=== PATIENT | male | born 1950 | race Caucasian/White ===

== ENCOUNTER 2024-12-09 07:52 | Outpatient (CLI) | payer MEDICARE, SELFPAY ==
[2024-12-09 08:00] LABS: Hematocrit 34.7 % (42.0-52.0); Hemoglobin 10.9 g/dL (14.1-18.0); Immature Granulocytes % 0.6 %; Mean Corpuscular HGB Conc 31.4 g/dL (31.8-35.4); Mean Corpuscular Hemoglobin 29.1 pg (27.0-31.2); Mean Corpuscular Volume 92.8 fl (80-94); Nucleated Red Blood Cells % 0 %; Platelet Count 235 K/mm3 (142-424); Red Blood Count 3.74 M/mm3 (4.60-6.20); Red Cell Distribution Width-SD 48.8 fL; White Blood Count 7.9 K/mm3 (4.8-10.8)
[2024-12-09 08:27] LABS: Alanine Aminotransferase 18 U/L (12-78); Albumin Level 3.4 g/dl (3.5-5.0); Albumin/Globulin Ratio 1.3 (1.1-1.8); Alkaline Phosphatase 93 U/L (38-126); Anion Gap 15.2 mEq/L (5-15); Aspartate Amino Transferase 25 U/L (17-59); Bilirubin,Total 0.6 mg/dl (0.2-1.3); Blood Urea Nitrogen 36 mg/dl (9-20); Calcium 9.6 mg/dl (8.4-10.2); Carbon Dioxide 26 mmol/L (22.0-30.0); Chloride 102 mmol/L (98-107); Cholesterol 182 mg/dl (140-200); Creatinine,Serum 1.90 mg/dl (0.66-1.25); Estimated Glomerular Filt Rate 35 ml/min (>60); GFR (African American) 42 ML/MIN (>60); Globulin 2.7 g/dL (1.3-3.2); Glucose 88 mg/dl (74-100); HDL Cholesterol 48 mg/dl (40-60); Potassium 4.2 mmoL/L (3.5-5.1); Sodium 139 mmol/L (136-145); Total Protein,Serum 6.1 g/dl (6.3-8.2); Triglycerides 130 mg/dl (30-150)
[2024-12-09 08:58] LABS: Thyroid Stimulating Hormone 2.42 uIU/mL (0.465-4.68)
== END 2024-12-09 23:59 | disposition home or self-care (01) ==
PROVIDERS: PCP Nurse Practitioner Family; Visit Provider Nurse Practitioner Family
DX: E78.5 Hyperlipidemia, unspecified (principal); E03.9 Hypothyroidism, unspecified; N18.9 Chronic kidney disease, unspecified
CPT/HCPCS: 36415; 80053; 80061; 84443; 85025

== ENCOUNTER 2025-01-06 17:31 | Inpatient (IN) | payer MEDICARE, SELFPAY ==
[2025-01-06] VITALS (19 sets, daily range): BP systolic 79–119; BP diastolic 40–91; PULSE 64–132; RESP 17–49; TEMP 37.6–38.7; O2SAT 91–100; BMI 22.8; BMI 28.3
--- NOTE | 2025-01-06 17:24 | ECG_ITS ---
APPROVED REPORT Exam: Resting ECG HR:132 bpm ECG Measurements Heart Rate 132 AXES [place] 149 P 55 QRSd 77 QRS 3 QT 285 T 61 QTc 363 Conclusion SINUS TACHYCARDIA MODERATE ST DEPRESSION [0.05+ mV ST DEPRESSION] ABNORMAL ECG UNCONFIRMED REPORT Electronically signed by : William Benton, 01/06/2025 22:37:51
[2025-01-06 17:42] LABS: Coronavirus 19, PCR Not Detected (NotDetected); Influenza A, PCR Not Detected (NotDetected); Influenza B, PCR Not Detected (NotDetected)
--- NOTE | 2025-01-06 17:44 | CT_ITS ---
PROCEDURE INFORMATION: Exam: CT Abdomen And Pelvis With Contrast Exam date and time: 01/06/2025 7:49 PM Age: 74 years old Clinical indication: Abdominal pain; Additional info: Abd pain TECHNIQUE: Imaging protocol: Computed tomography of the abdomen and pelvis with contrast. Radiation optimization: All CT scans at this facility use at least one of these dose optimization techniques: automated exposure control; mA and/or kV adjustment per patient size (includes targeted exams where dose is matched to clinical indication); or iterative reconstruction. Contrast material: ISOVUE; Contrast volume: 75 ml; Contrast route: IV; COMPARISON: CR (CHEST, CXR AP LANDSCAPE) 01/06/2025 6:16 PM FINDINGS: Tubes, catheters and devices: Manning catheter present with the balloon insufflated. The balloon and catheter tip are within the membranous urethra below the level of the prostate. There is a mild increase in attenuation surrounding the tip of the catheter which may be enhancement or represent a small amount of urethral hemorrhage. Lungs: Bandlike atelectasis and mild infiltrative changes within the lung bases. No focal consolidation or pleural effusion appreciated. Coronary arteries: There is at least moderate atherosclerotic plaquing involving the proximal LAD and 1st diagonal branch. Calcification proximal circumflex artery and also probably at the origin of the right coronary artery. Liver: Normal. No mass. Gallbladder and biliary ducts: Normal. No calcified stones. No ductal dilation. Pancreas: Normal. No ductal dilation. Spleen: Normal. No splenomegaly. Adrenal glands: 2.3 x 2.1 cm right adrenal mass with a 1.6 cm area of decreased attenuation centrally. The peripheral Hounsfield unit measurement is approximately 70 with the central area in the 25 range. There are 2 coarse calcifications present. The left adrenal gland appears normal. Kidneys and ureters: Normal-sized kidneys which show slightly inhomogeneous enhancement. There are small peripheral low-attenuation renal masses that likely represent cysts and do not require follow-up. There is mild dilatation of the renal pelvis and ureters bilaterally. There is mild increased attenuation in the peripelvic fat of the left kidney. No ureteral stone is identified. Stomach and bowel: The stomach is partially gas and fluid filled. There is no small bowel dilatation. The cecum is mobile and directed anteromedially. The colon is gas and stool-filled and does not appear significantly distended. A small mesenteric lipoma seen adjacent to the sigmoid colon in the right lower abdomen. Appendix: No evidence of appendicitis. The appendix is not visualized with certainty. Intraperitoneal space: See Stomach and bowel finding. Vasculature: Moderate atherosclerotic plaquing abdominal aorta with no aneurysm. Lymph nodes: Unremarkable. No enlarged lymph nodes. Urinary bladder: There is moderate bladder distension with mild wall thickening. No inflammation is seen surrounding the bladder. Reproductive: Prostate enlargement measuring in the 5 cm range. Bones/joints: Multilevel degenerative disc disease lumbar spine with a mild degenerative anterolisthesis of L4 with respect to L3 and L5. Facet joint arthritis lower lumbar spine. Soft tissues: Tiny fat containing umbilical hernia and small fat containing inguinal hernias. No obstructive hernia. IMPRESSION: 1. Moderate urinary retention with prostate enlargement. Mild bladder wall thickening and mild dilatation of the renal pelvis and ureters and slight inhomogeneous of the kidneys. A urinary tract infection is suspected which may be ascending and involve the kidneys. 2. The tip of the Manning catheter is within the membranous urethra where there may be a small amount of surrounding hemorrhage. 3. 2.3 x 2.1 cm right adrenal mass which is described above. A follow-up MRI of the abdomen with and without intravenous contrast on a nonemergent basis is recommended. 4. Coronary artery disease which is discussed above. COMMENTS: Consistent with the [employer]'s Incidental Findings Committee white paper (J Am Megha Radiol 2018): Any incidental renal lesion less than 1 cm or classified as too small to characterize, or any incidental cystic renal lesion characterized as simple-appearing, is likely benign. No follow-up imaging is recommended for these lesions per consensus recommendations based on imaging criteria. COMMENT: THIS REPORT CONTAINS FINDINGS THAT MAY BE CRITICAL TO PATIENT CARE. The exam findings were verbally communicated by me to KRITSA Holland via telephone conference at 8:48 PM EDT on 01/06/2025. The findings were acknowledged and understood.
--- NOTE | 2025-01-06 17:44 | XR_ITS ---
PROCEDURE INFORMATION: Exam: XR Chest Exam date and time: 01/06/2025 6:16 PM Age: 74 years old Clinical indication: Shortness of breath; Additional info: SOA TECHNIQUE: Imaging protocol: Radiologic exam of the chest. Views: 1 view. COMPARISON: No relevant prior studies available. FINDINGS: Lungs: Suboptimal inspiratory effort with mild elevation of the hemidiaphragms. Mild left perihilar and right infrahilar atelectatic changes with possibly minimal infiltration. No focal consolidation identified. Pleural spaces: Unremarkable. No pleural effusion. No pneumothorax. Heart/Mediastinum: Unremarkable. No cardiomegaly. Bones/joints: Unremarkable. IMPRESSION: Suboptimal inspiratory effort with mild left perihilar and right infrahilar atelectasis or minimal infiltration. No focal consolidation, vascular congestion or pleural fluid appreciated.
--- NOTE | 2025-01-06 17:48 | PC.NURSE ---
I notified Jossie in resp that a green top was sent for a VBG
[2025-01-06] MEDS: 0.9 % SODIUM CHLORIDE 1000ML 1,000 ML 999 ML IV ×2 (17:53→19:16)
[2025-01-06] MEDS: ACETAMINOPHEN 1,000MG/100ML VIAL 1000 MG IV (17:53)
[2025-01-06 17:55] LABS: VBG HCO3 23.9 mmol/L (23-30); VBG PCO2 46.2 mmol/L (35-51); VBG PH 7.33 mmol/L (7.31-7.41); VBG PO2 29.7 mmol/L (28-40)
[2025-01-06 17:56] LABS: Lactate Venous 4.3 mmol/L (0.4-2.0)
[2025-01-06 17:58] LABS: Alanine Aminotransferase 31 U/L (12-78); Albumin Level 3.8 g/dl (3.5-5.0); Albumin/Globulin Ratio 1.2 (1.1-1.8); Alkaline Phosphatase 120 U/L (38-126); Anion Gap 13.4 mEq/L (5-15); Aspartate Amino Transferase 31 U/L (17-59); Bilirubin,Total 0.4 mg/dl (0.2-1.3); Blood Urea Nitrogen 28 mg/dl (9-20); Calcium 8.9 mg/dl (8.4-10.2); Carbon Dioxide 24 mmol/L (22.0-30.0); Chloride 105 mmol/L (98-107); Creatinine Clearance Estimated 31 mL/min (50-200); Creatinine,Serum 2.00 mg/dl (0.66-1.25); Estimated Glomerular Filt Rate 33 ml/min (>60); GFR (African American) 40 ML/MIN (>60); Globulin 3.1 g/dL (1.3-3.2); Glucose 91 mg/dl (74-100); Potassium 4.4 mmoL/L (3.5-5.1); Sodium 138 mmol/L (136-145); Total Protein,Serum 6.9 g/dl (6.3-8.2)
[2025-01-06 18:02] LABS: Hematocrit 34.0 % (42.0-52.0); Hemoglobin 10.8 g/dL (14.1-18.0); Immature Granulocytes % 0.9 %; Mean Corpuscular HGB Conc 31.8 g/dL (31.8-35.4); Mean Corpuscular Hemoglobin 29.1 pg (27.0-31.2); Mean Corpuscular Volume 91.6 fl (80-94); Nucleated Red Blood Cells % 0 %; Platelet Count 251 K/mm3 (142-424); Red Blood Count 3.71 M/mm3 (4.60-6.20); Red Cell Distribution Width-SD 47.1 fL; White Blood Count 5.7 K/mm3 (4.8-10.8)
[2025-01-06 18:08] LABS: Microscopic, Urine URINE MICROSCOPIC (MICROSCOPIC)
--- NOTE | 2025-01-06 18:08 | ED_ITS ---
<Statement entered by Nataly Benton MD - 01/06/25 22:25> I was consulted by the SUSAN, and we discussed the complexity of the problems being addressed. I approved the treatment and management plan for this patient's care in the emergency department, thus performing a substantive portion of the medical decision making. Nataly Benton MD, MINO, FACEP Discharge Plan Disposition Patient Disposition: Home, Self-Care Clinical Impressions Clinical Impression: Acute UTI, Sepsis Discharge ED Provider: Nataly Benton General Adult HPI <Colleen Holland, WINDER TENDER - Last Filed: 01/06/25 21:59> General Chief complaint: Recheck/Abnormal Lab/Rx Stated complaint: hypotension Time Seen by Provider: 01/06/25 17:32 Mode of Arrival: EMS Source of Information: Patient Description of Symptoms (Recalled from ER Triage Doc. by RN): Pt presents by [facility] from [place] for evaluation of hypotension. Per staff at [facility] BP was 80/40. Pt's ashford was changed out by the facility today. Per staff the ashford bag had bright red blood, and after the ashford exchange the patient still had bright red blood. BP for EMS was a SBP of 137 and 110. HR 120s, temp 100.6. History of Present Illness HPI narrative: patient is a 74-year-old male PMHx dementia, CKD, HTN, HLD who presents to the ED from [facility] for hematuria that started today. She has a Ashford catheter at baseline. They state that he had a fever prior to arrival. Related Data Home Medications ?Medication ?Instructions ?Recorded ?Confirmed acetaminophen 500 mg capsule 500 mg PO Q6H PRN 5 12/07/24 ammonium lactate 12 % lotion 1 applic topical DAILY 12/07/24 finasteride 5 mg tablet (Proscar) 5 mg PO DAILY 12/07/24 lidocaine HCl 2 % topical pump 1 spray topical DAILY 0 12/06/24 12/07/24 spray ([place] (lidocaine)) melatonin 3 mg capsule 3 mg PO HS PRN 12/06/24 0711/16 nystatin 100,000 unit/mL oral 1 ml PO DAILY 12/06/24 0 12/07/24 suspension polyethylene glycol 3350 17 17 g PO DAILY 12/06/24 gram/dose oral powder (Miralax) risperidone 0.25 mg disintegrating 0.25 mg PO BID 11/2212/07/24 tablet sennosides 8.6 mg capsule (senna) 17.2 mg PO DAILY PRN constipation 12/06/24 12/07/24 tamsulosin 0.4 mg capsule (Flomax) 0.4 mg PO DAILY 12/07/24 Allergies Allergy/AdvReac Type Severity Reaction Status Date / Time No Allergy Information Allergy Verified 12/07/24 21:09 Available [facility] <Colleen Holland APRN - Last Filed: 01/06/25 21:59> [facility] Disclaimer: The information contained in this section may have been updated after the patient was seen, as this information can be updated by other users. Medical History (Updated 01/06/25 @ 19:35 by Colleen Holland APRN) Acute encephalopathy Sepsis Acute kidney injury Respiratory failure Urinary obstruction Hypothyroid Dementia CKD (chronic kidney disease) HTN (hypertension) HLD (hyperlipidemia) Social History (Updated 12/07/24 @ 21:18 by Omar Solis MD) Smoking Status: Never smoker alcohol intake: former current occupational status: retired Travel in the last 8 weeks?: None marital status: Have you lived/traveled outside [place] in past 30 days?: No Contact w/someone who lives/traveled outside US past 30 days?: No Exposure to someone with infectious disease in past 14 days?: No Do you have a fever (greater than 100.4 F or 38 C)?: No Have you tested positive for COVID-19?: No Exposed to someone with COVID-19 in past 14 days?: No Do you have a sore throat?: No Do you have a cough?: No Do you have any weakness?: No Do you have any diarrhea?: No Are you experiencing any unusual bleeding?: No Do you have any muscle aches/pain?: No Do you have any abdominal pain?: No Are you experiencing loss of taste or smell?: No Other Medical History Have you received the Pneumonia Vaccine: No (Unknown) <Colleen Holland APRN - Last Filed: 01/06/25 21:59> ROS Obtained: Yes Systems reviewed as appropriate & no additional complaints except as documented Physical Exam <Colleen Holland APRN - Last Filed: 01/06/25 21:59> General General appearance: alert Head Head exam: atraumatic Eye Eye exam: Present PERRL Respiratory Respiratory exam: Present other (decreased ); Absent respiratory distress Cardiovascular Cardiovascular exam: Present tachycardia Abdominal Exam Abdominal exam: Present soft; Absent tenderness Neurological Exam Neurological exam: Present alert and oriented X3 Skin Skin exam: Present warm Medical Decision Making <Colleen Holland APRN - Last Filed: 01/06/25 21:59> Medical Records Screening: Per USPSTF and CDC recommendations, given the prevalence of disease in our region, it is our hospital?s policy to screen for HIV and viral Hepatitis for all patients aged 18 and over and those with ongoing risk factors. [place] Inquiry Pt receiving controlled substance: No Vital Signs: 01/06/25 17:29 01/06/25 17:30 01/06/25 17:43 Temperature 99.7 F H Temperature Source Oral Pulse Rate 130 H 132 H Pulse Rate [Right] 128 H Respiratory Rate 18 22 17 Blood Pressure 119/68 115/87 Blood Pressure [Right Arm] 114/91 H Blood Pressure Mean [Right Arm] 98 Blood Pressure Source Blood Pressure Source [Right Arm] Automatic Cuff Blood Pressure Position Blood Pressure Position [Right Arm] Sitting 02 Sat by Pulse Oximetry 100 94 L 96 Oxygen Delivery Method Room Air 01/06/25 18:15 01/06/25 18:30 01/06/25 19:30 Temperature Temperature Source Pulse Rate 132 H 129 H Pulse Rate [Right] Respiratory Rate 23 49 H 28 H Blood Pressure 103/69 L 115/60 Blood Pressure [Right Arm] Blood Pressure Mean [Right Arm] Blood Pressure Source Blood Pressure Source [Right Arm] Blood Pressure Position Blood Pressure Position [Right Arm] 02 Sat by Pulse Oximetry 94 L 94 L Oxygen Delivery Method Room Air Room Air 01/06/25 20:25 01/06/25 20:35 01/06/25 20:42 Temperature Temperature Source Oral Pulse Rate 118 H 119 H 118 H Pulse Rate [Right] Respiratory Rate 18 20 28 H Blood Pressure 93/52 L 104/56 L 99/55 L Blood Pressure [Right Arm] Blood Pressure Mean [Right Arm] Blood Pressure Source Automatic Cuff Automatic Cuff Blood Pressure Source [Right Arm] Blood Pressure Position Supine Sitting Blood Pressure Position [Right Arm] 02 Sat by Pulse Oximetry 92 L 93 L 95 Oxygen Delivery Method Room Air Room Air 01/06/25 20:51 01/06/25 21:12 01/06/25 21:28 Temperature 101.3 F H 101.7 F H Temperature Source Core Core Pulse Rate 119 H 121 H 121 H Pulse Rate [Right] Respiratory Rate 28 H 28 H 29 H Blood Pressure 98/56 L 97/49 L 79/40 L Blood Pressure [Right Arm] Blood Pressure Mean [Right Arm] Blood Pressure Source Automatic Cuff Blood Pressure Source [Right Arm] Blood Pressure Position Sitting Sitting Blood Pressure Position [Right Arm] 02 Sat by Pulse Oximetry 98 95 95 Oxygen Delivery Method Room Air Room Air Room Air 01/06/25 21:34 01/06/25 21:42 Temperature 101.7 F H Temperature Source Core Pulse Rate 124 H Pulse Rate [Right] Respiratory Rate 24 Blood Pressure 84/47 L 119/69 Blood Pressure [Right Arm] Blood Pressure Mean [Right Arm] Blood Pressure Source Automatic Cuff Automatic Cuff Blood Pressure Source [Right Arm] Blood Pressure Position Supine Supine Blood Pressure Position [Right Arm] 02 Sat by Pulse Oximetry Oxygen Delivery Method Room Air Lab Data Lab Results 01/06/25 17:25: WBC 5.7, RBC 3.71 L, Hgb 10.8 L, Hct 34.0 L, MCV 91.6, MCH 29.1, MCHC 31.8, RDW 14.0, Plt Count 251, MPV 8.4, Neut % (Auto) 88.8 H, Lymph % (Auto) 8.5 L, Murray % (Auto) 0.4 L, Eos % (Auto) 1.4, Baso % (Auto) 0.0 L, Neut # (Auto) 5.0, Lymph # (Auto) 0.5 L, Murray # (Auto) 0.0 L, Eos # (Auto) 0.1, Baso # (Auto) 0.0, Total Counted 100, Neutrophils % (Manual) 88 H, Lymphocytes % (Manual) 8 L, Monocytes % (Manual) 2, Eosinophils % (Manual) 2, Platelet Estimate Normal, RBC Morphology Normal, VBG pH 7.33, VBG pCO2 46.2, VBG pO2 29.7, VBG HCO3 23.9, VBG Total CO2 25.3, VBG O2 Saturation 50.8, VBG Base Excess -2.1, VBG Lactic Acid 4.3 H, Sodium 138, Potassium 4.4, Chloride 105, Carbon Dioxide 24, Anion Gap 13.4, BUN 28 H, Creatinine 2.00 H, Estimated Creat Clear 31, Estimated GFR 33 L, Est GFR ( Amer) 40 L, Glucose 91, Lactate 3.9 H, Calcium 8.9, Total Bilirubin 0.4, AST 31, ALT 31, Alkaline Phosphatase 120, Total Protein 6.9, Albumin 3.8, Globulin 3.1, Albumin/Globulin Ratio 1.2, SARS-CoV-2 (PCR) Not detected, Influenza A Untype (PCR) Not detected, Influenza Type B (PCR) Not detected 01/06/25 17:29: Urine Color Yellow, Urine Appearance Sl cloudy, Urine pH 8.0, Ur Specific [place] 1.025, Urine Protein 3+ A, Urine Glucose (UA) Negative, Urine Ketones Negative, Urine Blood 4+ A, Urine Nitrate Positive A, Urine Bilirubin 2+ A, Urine Urobilinogen 0.2, Ur Leukocyte Esterase 2+ A 01/06/25 21:03: Urine Color Yellow, Urine Appearance Sl cloudy, Urine pH 6.5, Ur Specific [place] <= 1.005, Urine Protein Negative, Urine Glucose (UA) Negative, Urine Ketones Negative, Urine Blood 3+, Urine Nitrate Negative, Urine Bilirubin Negative, Urine Urobilinogen 0.2, Ur Leukocyte Esterase 3+ A, Urine RBC 10-20, U rine WBC Tntc A, Ur Squamous Epith Cells None, Urine Bacteria 4+ A 01/06/25 17:25 01/06/25 17:25 Orders (Tests/Meds): ED MEDICATIONS Generic Name Dose Route Start Last Admin Trade Name Freq PRN Reason Stop Dose Admin Acetaminophen 1,000 mg 01/06/25 21:46 01/06/25 22:16 Acetaminophen 500mg Tab PO 02/05/25 21:45 1,000 mg Q6HP PRN Administration Fever Or Mild Pain (1-3) Hydrocodone Bitart/Acetaminophen 1 tab 01/06/25 21:28 Hydrocodone/Apap 5/325 Mg Tablet PO 02/05/25 21:27 Q4HP PRN Moderate Pain (4-6) Docusate Sodium 100 mg 01/07/25 09:00 Docusate Sodium 100 Mg Capsule PO 02/06/25 08:59 DAILY JACKIE Finasteride 5 mg 01/07/25 21:00 Finasteride 5mg Tablet PO 02/06/25 20:59 HS [facility] Heparin Sodium (Porcine) 5,000 unit 01/07/25 09:00 Heparin Sodium 5,000 Unit/Ml Vial SUBCUT 02/06/25 08:59 TID JACKIE Norepinephrine/Dextrose 8 mg in 250 mls @ 3.75 mls/hr 01/06/25 20:08 01/06/25 21:33 Levophed 8mg/250ml-D5w Premix IV 02/05/25 20:07 7 mcg/min .Q24H JACKIE 13.13 mls/hr Protocol Infusion 2 MCG/MIN Sodium Chloride 1,000 mls @ 150 mls/hr 01/06/25 21:45 01/06/25 22:14 Sod Chlor 0.9% 1000ml Bag IV 02/05/25 21:44 150 mls/hr .Q6H40M JACKIE Administration Ceftriaxone Sodium 2 gm/ 100 mls @ 200 mls/hr 01/07/25 09:45 Sodium Chloride IV 01/17/25 09:44 Q24H JACKIE Miscellaneous 1 each 01/06/25 18:00 Vancomycin Consult Request NOTAPPLIC 02/05/25 17:59 CONSULT PHARMACY [facility] Ondansetron HCl 4 mg 01/06/25 21:28 Ondansetron 4mg/2ml Vial IV 02/05/25 21:27 Q8HP PRN Nausea Pantoprazole Sodium 40 mg 01/07/25 21:00 Pantoprazole 40mg Tablet PO 02/06/25 20:59 HS [facility] Polyethylene Glycol 17 gm 01/07/25 09:00 Polyethylene Glycol 3350 17 Gm Packet PO 02/06/25 08:59 DAILY JACKIE Risperidone 0.25 mg 01/07/25 09:00 Risperidone 0.25mg Tablet PO 02/06/25 08:59 BID JACKIE Sodium Chloride 10 ml 01/06/25 21:34 Sodium Chloride 0.9% 10ml Flush Syringe IV 02/05/25 21:33 NEEDED PRN Maintain IV Site Tamsulosin HCl 0.4 mg 01/07/25 21:00 Tamsulosin 0.4mg Capsule PO 02/06/25 20:59 HS [facility] Discontinued Medications Generic Name Dose Route Start Last Admin Trade Name Freq PRN Reason Stop Dose Admin Acetaminophen 1,000 mg 01/06/25 17:44 01/06/25 17:53 Acetaminophen 1,000mg/100ml Vial IV 01/06/25 17:45 1,000 mg ONCE ONE Administration Sodium Chloride 1,000 mls @ 999 mls/hr 01/06/25 17:44 01/06/25 17:53 Sod Chlor 0.9% 1000ml Bag IV 01/06/25 18:44 999 mls/hr .Q1H1M ONE Administration Cefepime HCl 2 gm/ Sodium 100 mls @ 200 mls/hr 01/06/25 17:58 01/06/25 18:15 Chloride IV 01/06/25 18:27 200 mls/hr ONCE ONE Administration Vancomycin/PEG/NADA/Lysine/Water 1.75 gm in 350 mls @ 175 mls/hr 01/06/25 18:15 01/06/25 18:42 Vancomycin 1.75gm/350ml (Peg) Premix IV 01/06/25 20:14 175 mls/hr ONCE ONE Administration Sodium Chloride 1,000 mls @ 999 mls/hr 01/06/25 18:40 01/06/25 19:16 Sod Chlor 0.9% 1000ml Bag IV 01/06/25 19:40 999 mls/hr .Q1H1M ONE Administration Iopamidol 75 ml 01/06/25 19:51 01/06/25 19:52 Iopamidol-370 (76%);100ml Bottle IV 01/06/25 19:52 75 ml ONCE ONE Administration Sodium Chloride 10 ml 01/06/25 19:51 01/06/25 19:52 Sodium Chloride 0.9% 10ml Syr (Rad Only) IV 01/06/25 19:52 10 ml ONCE ONE Administration ORDERS Category Date Time Status CT abdomen pelvis w con Stat Cat Scan 01/06/25 17:44 Completed Consult to Case Management [CONS] Routine Cons 01/06/25 21:28 Active CXR --portable [XR chest portable] Stat Exams 01/06/25 17:44 Completed Basic Metabolic Panel AMLAB Lab 01/07/25 06:00 Ordered CBC w/Auto Diff [Complete Blood Count Auto Diff] Stat Lab 01/06/25 17:25 Completed CMP [Comprehensive Metabolic Panel] Stat Lab 01/06/25 17:25 Completed Complete Blood Count Auto Diff AMLAB Lab 01/07/25 06:00 Ordered Lactic Acid Stat Lab 01/06/25 17:25 Completed Magnesium AMLAB Lab 01/07/25 06:00 Ordered Rapid PCR Covid and Flu A/B Stat Lab 01/06/25 17:25 Completed Urinalysis (cathed specimen) Stat Lab 01/06/25 21:03 Completed Urinalysis and Microscopic Stat Lab 01/06/25 17:29 Results Blood Culture Stat Micro 01/06/25 18:06 Received Urine Culture Stat Micro 01/06/25 17:29 Received Urine Culture(cathed specimen) Stat Micro 01/06/25 21:03 Received VBG [Venous Blood Gas] Stat RT 01/06/25 17:25 Completed Medical Decision Narrative: In summary, patient is a 74-year-old male PMHx dementia, CKD, HTN, HLD who presents to the ED from [facility] for hematuria that started today. She has a Ashford catheter at baseline. They state that he had a fever prior to arrival. Upon initial evaluation, patient is alert and oriented, he denies any symptoms or complaints. States that he is not sick. Physical exam remarkable for tachycardia, patient has tremors which [facility] reported were baseline. Bilaterally decreased lung sounds. Patient skin is warm to touch. Differential diagnosis includes sepsis, septic shock, UTI, hematuria, mass, UTI, among others. Discussed with patient we will proceed with septic workup, including sepsis bolus. CBC unremarkable for leukocytosis, stable H&H. VBG remarkable for lactic acid 4.3. CMP remarkable for BUN 28, creatinine 2, GFR 33. Urinalysis remarkable for 4+ blood, nitrite positive, bili positive, leuk esterase positive. Vanc & cefepime started. Patient will have the full 30 mL per/kg fluid bolus. CT remarkable for urinary retention and a displaced Ashford catheter. We exchanged the Ashford catheter. Patient became hypotensive, despite fluid resuscitation, we started Levophed on the patient to sustain a MAP of greater than 65. I consulted the hospitalist who admitted the patient to the ICU for septic shock. <Nataly Benton MD - Last Filed: 01/06/25 22:27> Vital Signs: 01/06/25 17:29 01/06/25 17:30 01/06/25 17:43 Temperature 99.7 F H Temperature Source Oral Pulse Rate 130 H 132 H Pulse Rate [Right] 128 H Respiratory Rate 18 22 17 Blood Pressure 119/68 115/87 Blood Pressure [Right Arm] 114/91 H Blood Pressure Mean [Right Arm] 98 Blood Pressure Source Blood Pressure Source [Right Arm] Automatic Cuff Blood Pressure Position Blood Pressure Position [Right Arm] Sitting 02 Sat by Pulse Oximetry 100 94 L 96 Oxygen Delivery Method Room Air 01/06/25 18:15 01/06/25 18:30 01/06/25 19:30 Temperature Temperature Source Pulse Rate 132 H 129 H Pulse Rate [Right] Respiratory Rate 23 49 H 28 H Blood Pressure 103/69 L 115/60 Blood Pressure [Right Arm] Blood Pressure Mean [Right Arm] Blood Pressure Source Blood Pressure Source [Right Arm] Blood Pressure Position Blood Pressure Position [Right Arm] 02 Sat by Pulse Oximetry 94 L 94 L Oxygen Delivery Method Room Air Room Air 01/06/25 20:25 01/06/25 20:35 01/06/25 20:42 Temperature Temperature Source Oral Pulse Rate 118 H 119 H 118 H Pulse Rate [Right] Respiratory Rate 18 20 28 H Blood Pressure 93/52 L 104/56 L 99/55 L Blood Pressure [Right Arm] Blood Pressure Mean [Right Arm] Blood Pressure Source Automatic Cuff Automatic Cuff Blood Pressure Source [Right Arm] Blood Pressure Position Supine Sitting Blood Pressure Position [Right Arm] 02 Sat by Pulse Oximetry 92 L 93 L 95 Oxygen Delivery Method Room Air Room Air 01/06/25 20:51 01/06/25 21:12 01/06/25 21:28 Temperature 101.3 F H 101.7 F H Temperature Source Core Core Pulse Rate 119 H 121 H 121 H Pulse Rate [Right] Respiratory Rate 28 H 28 H 29 H Blood Pressure 98/56 L 97/49 L 79/40 L Blood Pressure [Right Arm] Blood Pressure Mean [Right Arm] Blood Pressure Source Automatic Cuff Blood Pressure Source [Right Arm] Blood Pressure Position Sitting Sitting Blood Pressure Position [Right Arm] 02 Sat by Pulse Oximetry 98 95 95 Oxygen Delivery Method Room Air Room Air Room Air 01/06/25 21:34 01/06/25 21:42 Temperature 101.7 F H Temperature Source Core Pulse Rate 124 H Pulse Rate [Right] Respiratory Rate 24 Blood Pressure 84/47 L 119/69 Blood Pressure [Right Arm] Blood Pressure Mean [Right Arm] Blood Pressure Source Automatic Cuff Automatic Cuff Blood Pressure Source [Right Arm] Blood Pressure Position Supine Supine Blood Pressure Position [Right Arm] 02 Sat by Pulse Oximetry Oxygen Delivery Method Room Air Lab Data Lab results reviewed: Yes I reviewed the patient's lab results. Lab Results 01/06/25 17:25: WBC 5.7, RBC 3.71 L, Hgb 10.8 L, Hct 34.0 L, MCV 91.6, MCH 29.1, MCHC 31.8, RDW 14.0, Plt Count 251, MPV 8.4, Neut % (Auto) 88.8 H, Lymph % (Auto) 8.5 L, Murray % (Auto) 0.4 L, Eos % (Auto) 1.4, Baso % (Auto) 0.0 L, Neut # (Auto) 5.0, Lymph # (Auto) 0.5 L, Murray # (Auto) 0.0 L, Eos # (Auto) 0.1, Baso # (Auto) 0.0, Total Counted 100, Neutrophils % (Manual) 88 H, Lymphocytes % (Manual) 8 L, Monocytes % (Manual) 2, Eosinophils % (Manual) 2, Platelet Estimate Normal, RBC Morphology Normal, VBG pH 7.33, VBG pCO2 46.2, VBG pO2 29.7, VBG HCO3 23.9, VBG Total CO2 25.3, VBG O2 Saturation 50.8, VBG Base Excess -2.1, VBG Lactic Acid 4.3 H, Sodium 138, Potassium 4.4, Chloride 105, Carbon Dioxide 24, Anion Gap 13.4, BUN 28 H, Creatinine 2.00 H, Estimated Creat Clear 31, Estimated GFR 33 L, Est GFR ( Amer) 40 L, Glucose 91, Lactate 3.9 H, Calcium 8.9, Total Bilirubin 0.4, AST 31, ALT 31, Alkaline Phosphatase 120, Total Protein 6.9, Albumin 3.8, Globulin 3.1, Albumin/Globulin Ratio 1.2, SARS-CoV-2 (PCR) Not detected, Influenza A Untype (PCR) Not detected, Influenza Type B (PCR) Not detected 01/06/25 17:29: Urine Color Yellow, Urine Appearance Sl cloudy, Urine pH 8.0, Ur Specific [place] 1.025, Urine Protein 3+ A, Urine Glucose (UA) Negative, Urine Ketones Negative, Urine Blood 4+ A, Urine Nitrate Positive A, Urine Bilirubin 2+ A, Urine Urobilinogen 0.2, Ur Leukocyte Esterase 2+ A 01/06/25 21:03: Urine Color Yellow, Urine Appearance Sl cloudy, Urine pH 6.5, Ur Specific [place] <= 1.005, Urine Protein Negative, Urine Glucose (UA) Negative, Urine Ketones Negative, Urine Blood 3+, Urine Nitrate Negative, Urine Bilirubin Negative, Urine Urobilinogen 0.2, Ur Leukocyte Esterase 3+ A, Urine RBC 10-20, U rine WBC Tntc A, Ur Squamous Epith Cells None, Urine Bacteria 4+ A Orders (Tests/Meds): ED MEDICATIONS Generic Name Dose Route Start Last Admin Trade Name Freq PRN Reason Stop Dose Admin Acetaminophen 1,000 mg 01/06/25 21:46 01/06/25 22:16 Acetaminophen 500mg Tab PO 02/05/25 21:45 1,000 mg Q6HP PRN Administration Fever Or Mild Pain (1-3) Hydrocodone Bitart/Acetaminophen 1 tab 01/06/25 21:28 Hydrocodone/Apap 5/325 Mg Tablet PO 02/05/25 21:27 Q4HP PRN Moderate Pain (4-6) Docusate Sodium 100 mg 01/07/25 09:00 Docusate Sodium 100 Mg Capsule PO 02/06/25 08:59 DAILY JACKIE Finasteride 5 mg 01/07/25 21:00 Finasteride 5mg Tablet PO 02/06/25 20:59 HS JACKIE Heparin Sodium (Porcine) 5,000 unit 01/07/25 09:00 Heparin Sodium 5,000 Unit/Ml Vial SUBCUT 02/06/25 08:59 TID JACKIE Norepinephrine/Dextrose 8 mg in 250 mls @ 3.75 mls/hr 01/06/25 20:08 01/06/25 21:33 Levophed 8mg/250ml-D5w Premix IV 02/05/25 20:07 7 mcg/min .Q24H JACKIE 13.13 mls/hr Protocol Infusion 2 MCG/MIN Sodium Chloride 1,000 mls @ 150 mls/hr 01/06/25 21:45 01/06/25 22:14 Sod Chlor 0.9% 1000ml Bag IV 02/05/25 21:44 150 mls/hr .Q6H40M JACKIE Administration Ceftriaxone Sodium 2 gm/ 100 mls @ 200 mls/hr 01/07/25 09:45 Sodium Chloride IV 01/17/25 09:44 Q24H JACKIE Miscellaneous 1 each 01/06/25 18:00 Vancomycin Consult Request NOTAPPLIC 02/05/25 17:59 CONSULT PHARMACY [facility] Ondansetron HCl 4 mg 01/06/25 21:28 Ondansetron 4mg/2ml Vial IV 02/05/25 21:27 Q8HP PRN Nausea Pantoprazole Sodium 40 mg 01/07/25 21:00 Pantoprazole 40mg Tablet PO 02/06/25 20:59 HS [facility] Polyethylene Glycol 17 gm 01/07/25 09:00 Polyethylene Glycol 3350 17 Gm Packet PO 02/06/25 08:59 DAILY JACKIE Risperidone 0.25 mg 01/07/25 09:00 Risperidone 0.25mg Tablet PO 02/06/25 08:59 BID JACKIE Sodium Chloride 10 ml 01/06/25 21:34 Sodium Chloride 0.9% 10ml Flush Syringe IV 02/05/25 21:33 NEEDED PRN Maintain IV Site Tamsulosin HCl 0.4 mg 01/07/25 21:00 Tamsulosin 0.4mg Capsule PO 02/06/25 20:59 HS [facility] Discontinued Medications Generic Name Dose Route Start Last Admin Trade Name Freq PRN Reason Stop Dose Admin Acetaminophen 1,000 mg 01/06/25 17:44 01/06/25 17:53 Acetaminophen 1,000mg/100ml Vial IV 01/06/25 17:45 1,000 mg ONCE ONE Administration Sodium Chloride 1,000 mls @ 999 mls/hr 01/06/25 17:44 01/06/25 17:53 Sod Chlor 0.9% 1000ml Bag IV 01/06/25 18:44 999 mls/hr .Q1H1M ONE Administration Cefepime HCl 2 gm/ Sodium 100 mls @ 200 mls/hr 01/06/25 17:58 01/06/25 18:15 Chloride IV 01/06/25 18:27 200 mls/hr ONCE ONE Administration Vancomycin/PEG/NADA/Lysine/Water 1.75 gm in 350 mls @ 175 mls/hr 01/06/25 18:15 01/06/25 18:42 Vancomycin 1.75gm/350ml (Peg) Premix IV 01/06/25 20:14 175 mls/hr ONCE ONE Administration Sodium Chloride 1,000 mls @ 999 mls/hr 01/06/25 18:40 01/06/25 19:16 Sod Chlor 0.9% 1000ml Bag IV 01/06/25 19:40 999 mls/hr .Q1H1M ONE Administration Iopamidol 75 ml 01/06/25 19:51 01/06/25 19:52 Iopamidol-370 (76%);100ml Bottle IV 01/06/25 19:52 75 ml ONCE ONE Administration Sodium Chloride 10 ml 01/06/25 19:51 01/06/25 19:52 Sodium Chloride 0.9% 10ml Syr (Rad Only) IV 01/06/25 19:52 10 ml ONCE ONE Administration ORDERS Category Date Time Status CT abdomen pelvis w con Stat Cat Scan 01/06/25 17:44 Completed Consult to Case Management [CONS] Routine Cons 01/06/25 21:28 Active CXR --portable [XR chest portable] Stat Exams 01/06/25 17:44 Completed Basic Metabolic Panel AMLAB Lab 01/07/25 06:00 Ordered CBC w/Auto Diff [Complete Blood Count Auto Diff] Stat Lab 01/06/25 17:25 Completed CMP [Comprehensive Metabolic Panel] Stat Lab 01/06/25 17:25 Completed Complete Blood Count Auto Diff AMLAB Lab 01/07/25 06:00 Ordered Lactic Acid Stat Lab 01/06/25 17:25 Completed Magnesium AMLAB Lab 01/07/25 06:00 Ordered Rapid PCR Covid and Flu A/B Stat Lab 01/06/25 17:25 Completed Urinalysis (cathed specimen) Stat Lab 01/06/25 21:03 Completed Urinalysis and Microscopic Stat Lab 01/06/25 17:29 Results Blood Culture Stat Micro 01/06/25 18:06 Received Urine Culture Stat Micro 01/06/25 17:29 Received Urine Culture(cathed specimen) Stat Micro 01/06/25 21:03 Received VBG [Venous Blood Gas] Stat RT 01/06/25 17:25 Completed Tissue Perfus/Sepsis Re-Eval Sepsis Re-Evaluation Performed: Yes Date Performed: 01/06/25 Time Performed: 22:26 Medical Decision Narrative: In summary, patient is a 74-year-old male PMHx dementia, CKD, HTN, HLD who presents to the ED from [facility] for hematuria that started today. She has a Ashford catheter at baseline. They state that he had a fever prior to arrival. Upon initial evaluation, patient is alert and oriented, he denies any symptoms or complaints. States that he is not sick. Physical exam remarkable for tachycardia, patient has tremors which [facility] reported were baseline. Bilaterally decreased lung sounds. Patient skin is warm to touch. Differential diagnosis includes sepsis, septic shock, UTI, hematuria, mass, UTI, among others. Discussed with patient we will proceed with septic workup, including sepsis bolus. CBC unremarkable for leukocytosis, stable H&H. VBG remarkable for lactic acid 4.3. CMP remarkable for BUN 28, creatinine 2, GFR 33. Urinalysis remarkable for 4+ blood, nitrite positive, bili positive, leuk esterase positive. Vanc & cefepime started. Patient will have the full 30 mL per/kg fluid bolus. CT remarkable for urinary retention and a displaced Ashford catheter. We exchanged the Ashford catheter. Patient became hypotensive, despite fluid resuscitation, we started Levophed on the patient to sustain a MAP of greater than 65. I consulted the hospitalist who admitted the patient to the ICU for septic shock. This is Dr. Benton patient 74-year-old with chronic kidney disease was not aggressively fluid resuscitated given the concern for volume overloaded state but in the setting of septic shock patient was started on early pressors to maintain maps above 65. Broad-spectrum antibiotics were initiated early this likely source of infection is urinary. Patient admitted to hospital medicine for further evaluation management Critical Care <Colleen Holland APRN - Last Filed: 01/06/25 21:59> Critical Care Time Critical Care Time: No <Nataly Benton MD - Last Filed: 01/06/25 22:27> Critical Care Time Critical Care Time: Yes Attestation: On 01/06/25, the high probability of a clinically significant, sudden or life threatening deterioration of the following system(s) required my full and direct attention, intervention and personal management. The time I documented below is in addition to time spent performing reported procedures but includes the following listed in this critical care notation. Total Time Total Critical Care Time: 65
[2025-01-06] MEDS: CEFEPIME HCL 2 GM in 0.9 % SODIUM CHLORIDE 100 ML IV (18:15)
[2025-01-06 18:28] LABS: Color,Urine YELLOW (Yellow); Glucose,Urine (UA) Negative (Negative); Ketones,Urine Negative (Negative); Leukocyte Esterase,Urine 2+ (Negative); PH,Urine 8.0 (5.0-8.5); Protein,Urine 3+ (Negative); Specific Gravity, Urine 1.025 (1.005-1.030); Urobilinogen,Urine 0.2 EU/dl (0.2)
[2025-01-06 18:38] LABS: Bilirubin,Urine 2+ (Negative)
[2025-01-06] MEDS: VANCOMYCIN/WATER FOR INJ (PEG) 1.75 GM/350 ML PIGGYBACK IV (18:42)
[2025-01-06 18:58] LABS: RBC Morphology Normal; Total Cells Counted 100
[2025-01-06] MEDS: SODIUM CHLORIDE 0.9% 10ML SYR (RAD ONLY) 10 ML IV (19:52)
[2025-01-06] MEDS: IOPAMIDOL-370 (76%);100ML BOTTLE 75 ML IV (19:52)
[2025-01-06] MEDS: NOREPINEPHRINE BITARTRATE/D5W 8 MG/250 ML PLAST..BAG 3.75 MG IV (20:10)
--- NOTE | 2025-01-06 20:16 | PC.NURSE ---
2008- Skyler CHRISTIANSON notified of BP 84/49 and 86/60
--- NOTE | 2025-01-06 20:47 | PC.NURSE ---
This RN calls [facility] to update on patient admission and status. Per Facility pt had pulled the catheter tube, and that only a new bag was placed.
--- NOTE | 2025-01-06 21:04 | PC.NURSE ---
New temp ashford catheter inserted per provider order. Catheter noted to be draining appropriately
--- NOTE | 2025-01-06 21:08 | PC.NURSE ---
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
[2025-01-06 21:11] LABS: Microscopic,Cath URINE MICROSCOPIC (MICROSCOPIC)
--- NOTE | 2025-01-06 21:15 | PC.NURSE ---
Provider notified of temp of 101.3 from temp kayley ashford
[2025-01-06 21:21] LABS: Appearance,Urine/Cath SL CLOUDY (Clear); Bilirubin,Cath Negative (Negative); Blood, Urine/Cath 3+ (Negative); Color,Urine/Cath YELLOW (Yellow); Glucose,Urine/Cath (UA) Negative (Negative); Ketones,Urine/Cath Negative (Negative); Leukocyte Esterase,Cath 3+ (Negative); Nitrate,Cath Negative (Negative); PH,Urine/Cath 6.5 (5.0-8.5); Protein,Urine/Cath Negative (Negative); Specific Gravity, Urine/Cath <= 1.005 (1.005-1.030); Urobilinogen,Cath 0.2 EU/dl (0.2)
[2025-01-06 21:29] LABS: WBC,Urine/Cath TNTC #/hpf (0-3)
[2025-01-06 21:30] LABS: Bacteria,Urine/Cath 4+ /lpf
--- NOTE | 2025-01-06 21:30 | PC.NURSE ---
report called to Chelita CHARLES, ICU
--- NOTE | 2025-01-06 21:38 | EXP.HP ---
History of Present Illness *Admission Date: 01/06/25 *Reason for visit:: Septic shock *History of present illness: This is a 74-year-old male that presents to [facility] emergency department from [facility] for fever, tachycardia and low blood pressures. He has a chronic indwelling Manning catheter with recognized attempts at removing it at the retirement facility with concerns of urethral trauma. He was sent to the ED for evaluation. Currently the patient reports no pelvic pain, gross hematuria, flank pain, confusion, fever or chills. He denies nausea, vomiting or diarrhea. In the ED he was febrile with a temperature 100.6, tachycardic and blood pressure 80/40. His laboratory studies identified a leukocytosis and elevated lactic acid. His urine was abnormal. He received IV fluid resuscitation with repeat lactic acid pending. He received IV antibiotic therapy and required IV pressor support to maintain appropriate blood pressures. Hospital medicine was asked to admit the patient for his presenting septic shock. [facility] Medical History (Updated 01/06/25 @ 22:34 by Ean Gaviria MD) Mood disorder BPH (benign prostatic hyperplasia) Urinary obstruction Hypothyroid Dementia CKD (chronic kidney disease) HTN (hypertension) HLD (hyperlipidemia) Social History (Updated 12/07/24 @ 21:18 by Omar Solis MD) Smoking Status: Never smoker alcohol intake: former current occupational status: retired Travel in the last 8 weeks?: None marital status: Have you lived/traveled outside [place] in past 30 days?: No Contact w/someone who lives/traveled outside US past 30 days?: No Exposure to someone with infectious disease in past 14 days?: No Do you have a fever (greater than 100.4 F or 38 C)?: No Have you tested positive for COVID-19?: No Exposed to someone with COVID-19 in past 14 days?: No Do you have a sore throat?: No Do you have a cough?: No Do you have any weakness?: No Do you have any diarrhea?: No Are you experiencing any unusual bleeding?: No Do you have any muscle aches/pain?: No Do you have any abdominal pain?: No Are you experiencing loss of taste or smell?: No Other Medical History Have you received the Pneumonia Vaccine: No (Unknown) Review of Systems Review of Systems Review of systems:: pertinent systems reviewed and negative unless documented below Meds Home Medications and Allergies Home Medications ?Medication ?Instructions ?Recorded ?Confirmed ?Type acetaminophen 500 mg capsule 500 mg PO Q6H PRN 12/06/24 12/07/24 History ammonium lactate 12 % lotion 1 applic topical DAILY 12/06/24 12/07/24 History finasteride 5 mg tablet (Proscar) 5 mg PO DAILY 12/06/24 12/07/24 History lidocaine HCl 2 % topical pump 1 spray topical DAILY 12/06/24 12/07/24 History spray ([place] (lidocaine)) melatonin 3 mg capsule 3 mg PO HS PRN 12/06/24 12/07/24 History nystatin 100,000 unit/mL oral 1 ml PO DAILY 12/06/24 12/07/24 History suspension polyethylene glycol 3350 17 17 g PO DAILY 12/06/24 12/07/24 History gram/dose oral powder (Miralax) risperidone 0.25 mg disintegrating 0.25 mg PO BID 12/06/24 12/07/24 History tablet sennosides 8.6 mg capsule (senna) 17.2 mg PO DAILY PRN constipation 12/06/24 12/07/24 History tamsulosin 0.4 mg capsule (Flomax) 0.4 mg PO DAILY 12/06/24 12/07/24 History New Prescriptions to Start Prescriptions: Allergies Allergy/AdvReac Type Severity Reaction Status Date / Time No Allergy Information Allergy Verified 12/07/24 21:09 Available Exam Data for Last 24 hours Vital signs and Labs for Last 24 Hours: Temp Pulse Resp BP Pulse Ox O2 Del Method 101.7 F H 121 H 29 H 84/47 L 95 Room Air 01/06/25 21:28 01/06/25 21:28 01/06/25 21:28 01/06/25 21:34 01/06/25 21:28 01/06/25 21:28 Laboratory Results - last 24 hr 01/06/25 17:25: WBC 5.7, RBC 3.71 L, Hgb 10.8 L, Hct 34.0 L, MCV 91.6, MCH 29.1, MCHC 31.8, RDW 14.0, Plt Count 251, MPV 8.4, Neut % (Auto) 88.8 H, Lymph % (Auto) 8.5 L, [place] % (Auto) 0.4 L, Eos % (Auto) 1.4, Baso % (Auto) 0.0 L, Neut # (Auto) 5.0, Lymph # (Auto) 0.5 L, [place] # (Auto) 0.0 L, Eos # (Auto) 0.1, Baso # (Auto) 0.0, Total Counted 100, Neutrophils % (Manual) 88 H, Lymphocytes % (Manual) 8 L, Monocytes % (Manual) 2, Eosinophils % (Manual) 2, Platelet Estimate Normal, RBC Morphology Normal, VBG pH 7.33, VBG pCO2 46.2, VBG pO2 29.7, VBG HCO3 23.9, VBG Total CO2 25.3, VBG O2 Saturation 50.8, VBG Base Excess -2.1, VBG Lactic Acid 4.3 H, Sodium 138, Potassium 4.4, Chloride 105, Carbon Dioxide 24, Anion Gap 13.4, BUN 28 H, Creatinine 2.00 H, Estimated Creat Clear 31, Estimated GFR 33 L, Est GFR ( Amer) 40 L, Glucose 91, Lactate 3.9 H, Calcium 8.9, Total Bilirubin 0.4, AST 31, ALT 31, Alkaline Phosphatase 120, Total Protein 6.9, Albumin 3.8, Globulin 3.1, Albumin/Globulin Ratio 1.2, SARS-CoV-2 (PCR) Not detected, Influenza A Untype (PCR) Not detected, Influenza Type B (PCR) Not detected 01/06/25 17:29: Urine Color Yellow, Urine Appearance Sl cloudy, Urine pH 8.0, Ur Specific [place] 1.025, Urine Protein 3+ A, Urine Glucose (UA) Negative, Urine Ketones Negative, Urine Blood 4+ A, Urine Nitrate Positive A, Urine Bilirubin 2+ A, Urine Urobilinogen 0.2, Ur Leukocyte Esterase 2+ A 01/06/25 21:03: Urine Color Yellow, Urine Appearance Sl cloudy, Urine pH 6.5, Ur Specific [place] <= 1.005, Urine Protein Negative, Urine Glucose (UA) Negative, Urine Ketones Negative, Urine Blood 3+, Urine Nitrate Negative, Urine Bilirubin Negative, Urine Urobilinogen 0.2, Ur Leukocyte Esterase 3+ A, Urine RBC 10-20, Urine WBC Tntc A, Ur Squamous Epith Cells None, Urine Bacteria 4+ A I & O for Last 24 hours: Intake & Output 01/03/25 01/04/25 01/05/25 01/06/25 23:59 23:59 23:59 23:59 Intake Total 11.598 / 11.598 Output Total 525 / 525 Balance -513.402 / -513.402 Weight 68.039 kg Constitutional Constitutional: no acute distress, chronically ill appearing and cooperative *Routine HEENT Exam Head: Present normocephalic Eye: Present EOMI and PERRL ENT: Present mucous membranes moist *Routine Neck Exam Neck: Present supple and trachea midline; Absent JVD or lymphadenopathy *Routine Respiratory Exam Respiratory: Present CTA bilaterally, normal respiratory effort and symmetric chest movement *Routine Cardiovascular Exam Cardiovascular: Present RRR, Normal S1 and Normal S2; Absent murmur *Routine Abdominal Exam Abdominal: Present soft and normoactive bowel sounds; Absent tenderness or distended *Routine Rectal Exam Rectal:: deferred *Routine Genitalia Exam Genitalia:: deferred *Routine Extremities Exam Extremities: Absent edema *Routine Skin Exam Skin: Absent rash *Routine Neurological Exam Neurological: Present alert, oriented X3, moving all extremities, vision grossly intact, hearing grossly intact and normal speech; Absent sensory deficit or motor deficit Routine Psychiatric Exam Psychiatric: Present normal affect and cooperative Assessment and Plan *Assessment and plan (1) Septic shock: Status: Acute Category: Medical Code(s): A41.9 - Sepsis, unspecified organism; R65.21 - Severe sepsis with septic shock (2) Obstructive uropathy: Status: Acute Category: Medical Code(s): N13.9 - Obstructive and reflux uropathy, unspecified (3) BPH (benign prostatic hyperplasia): Status: Acute Category: Medical Code(s): N40.0 - Benign prostatic hyperplasia without lower urinary tract symptoms (4) Acute UTI: Status: Acute Category: Medical Code(s): N39.0 - Urinary tract infection, site not specified (5) CKD (chronic kidney disease): Status: Acute Category: Medical Code(s): N18.9 - Chronic kidney disease, unspecified (6) Hypothyroid: Status: Acute Category: Medical Code(s): E03.9 - Hypothyroidism, unspecified Plan This is a 74-year-old male who presents from his retirement facility for concerns of sepsis with chronic indwelling Manning catheter. Problems addressed as follows: Septic shock, present on admission Febrile, tachycardic, tachypnea, leukocytosis, lactic acidosis, source identified ICU care with continuous telemetry and pulse oximetry monitoring IV fluid resuscitation with reflex lactic acid pending Blood cultures pending Troponin trend Echo pending Trending labs and inflammatory markers IV pressor support with routine MAP's IV antibiotic therapy Obstructive uropathy Benign prostatic hypertrophy Acute urinary tract infection Chronic Manning catheter Manning catheter changed out in ED CT A/P with: Urinary retention with prostate enlargement, cystitis, pyelonephritis, FC in membranous urethra Urinalysis abnormal Urine culture pending Alpha-jania therapy IV antibiotic Chronic kidney disease stage IIIb Baseline creatinine 1.9 Trending electrolytes and creatinine IV fluid resuscitation Accurate I's and O's Avoiding NSAIDs Constipation IV fluid resuscitation Bowel regimen Hypothyroidism Levothyroxine replacement therapy Mood disorder Routine nursing interaction Antipsychotic therapy ECG with QSv=7[address] ms Right adrenal mass CT A/P with: 2.3x 2.1 cm right adrenal mass Outpatient follow-up with PCP Radiology recommends with and without intravenous contrast MRI imaging on a nonemergent basis The length of stay for this patient will be 2 midnights or greater due to above diagnoses. Total amount of critical care time spent was 35 minutes not counting procedures performed. This time included high complexity decision making to assess and treat vital organ system failure in this patient who has impairment of 1 or more vital organ systems such as there is a high probability of imminent or life-threatening deterioration of the patient's condition. Failure to initiate the above interventions on an urgent basis would likely result in sudden, clinically significant or life-threatening deterioration in the patient's condition. The patient required my highest level of preparedness to intervene emergently and I personally spent this critical care time directly and personally managing the patient. This critical care time included obtaining a history; examining the patient; frequent vital monitoring including pulse oximetry; ordering and review of studies; arranging urgent treatment with development of a management plan; evaluation of patient's response to treatment; frequent reassessment; and, discussions with other providers including ICU staff.
[2025-01-06 21:55] LABS: Reflex Lactic Add Lactic Reflex
--- NOTE | 2025-01-06 22:07 | PC.NURSE ---
Pt arrived to unit via stretcher @[id number]
[2025-01-06] MEDS: 0.9 % SODIUM CHLORIDE 1000ML 1,000 ML 150 ML IV (22:14)
[2025-01-06] MEDS: ACETAMINOPHEN 500MG TAB 1000 MG PO (22:16)
[2025-01-06 23:57] LABS: Lactic Acid Follow Up (RFLX 1) 3.4 mmol/L (0.7-2.1)
[2025-01-07] VITALS (43 sets, daily range): BP systolic 80–135; BP diastolic 42–84; PULSE 79–114; RESP 15–38; TEMP 37–38.3; O2SAT 90–97; BMI 28.7
[2025-01-07 00:24] LABS: Troponin I 1.63 ng/ml (0.00-0.034)
[2025-01-07 01:29] LABS: Reflex Lactic (2 hrs) Add Lactic Reflex
[2025-01-07] MEDS: 0.9 % SODIUM CHLORIDE 1000ML 1,000 ML 150 ML IV (04:16)
[2025-01-07 07:46] LABS: Hematocrit 30.6 % (42.0-52.0); Hemoglobin 9.9 g/dL (14.1-18.0); Immature Granulocytes % 2.6 %; Mean Corpuscular HGB Conc 32.4 g/dL (31.8-35.4); Mean Corpuscular Hemoglobin 29.8 pg (27.0-31.2); Mean Corpuscular Volume 92.2 fl (80-94); Nucleated Red Blood Cells % 0 %; Platelet Count 225 K/mm3 (142-424); Red Blood Count 3.32 M/mm3 (4.60-6.20); Red Cell Distribution Width-SD 49.4 fL
[2025-01-07 07:53] LABS: Lactic Acid Follow up (RFLX 2) 1.5 mmol/L (0.7-2.1)
--- NOTE | 2025-01-07 07:57 | EXP.PHA.CONS ---
Pharmacy Consult Date: 01/07/25 Time: 07:57 Referring provider: DR MCCRAY Reason for Consult:: VANCOMYCIN DOSING CONSULT Allergies Allergy/AdvReac Type Severity Reaction Status Date / Time No Allergy Information Allergy Verified 12/07/24 21:09 Available Home Medications ?Medication ?Instructions ?Recorded ?Confirmed ?Type acetaminophen 500 mg capsule 500 mg PO Q6H PRN 12/06/24 12/07/24 History ammonium lactate 12 % lotion 1 applic topical DAILY 12/06/24 12/07/24 History finasteride 5 mg tablet (Proscar) 5 mg PO DAILY 12/06/24 12/07/24 History lidocaine HCl 2 % topical pump 1 spray topical DAILY 12/06/24 12/07/24 History spray (Burn [place] (lidocaine)) melatonin 3 mg capsule 3 mg PO HS PRN 12/06/24 12/07/24 History nystatin 100,000 unit/mL oral 1 ml PO DAILY 12/06/24 12/07/24 History suspension polyethylene glycol 3350 17 17 g PO DAILY 12/06/24 12/07/24 History gram/dose oral powder (Miralax) risperidone 0.25 mg disintegrating 0.25 mg PO BID 12/06/24 12/07/24 History tablet sennosides 8.6 mg capsule (senna) 17.2 mg PO DAILY PRN constipation 12/06/24 12/07/24 History tamsulosin 0.4 mg capsule (Flomax) 0.4 mg PO DAILY 12/06/24 12/07/24 History New Prescriptions to Start Prescriptions: Height: 1.73 m Weight: 86.001 kg Laboratory Results:: Laboratory Results - last 24 hr 01/06/25 17:25: WBC 5.7, RBC 3.71 L, Hgb 10.8 L, Hct 34.0 L, MCV 91.6, MCH 29.1, MCHC 31.8, RDW 14.0, Plt Count 251, MPV 8.4, Neut % (Auto) 88.8 H, Lymph % (Auto) 8.5 L, [place] % (Auto) 0.4 L, Eos % (Auto) 1.4, Baso % (Auto) 0.0 L, Neut # (Auto) 5.0, Lymph # (Auto) 0.5 L, [place] # (Auto) 0.0 L, Eos # (Auto) 0.1, Baso # (Auto) 0.0, Total Counted 100, Neutrophils % (Manual) 88 H, Lymphocytes % (Manual) 8 L, Monocytes % (Manual) 2, Eosinophils % (Manual) 2, Platelet Estimate Normal, RBC Morphology Normal, VBG pH 7.33, VBG pCO2 46.2, VBG pO2 29.7, VBG HCO3 23.9, VBG Total CO2 25.3, VBG O2 Saturation 50.8, VBG Base Excess -2.1, VBG Lactic Acid 4.3 H, Sodium 138, Potassium 4.4, Chloride 105, Carbon Dioxide 24, Anion Gap 13.4, BUN 28 H, Creatinine 2.00 H, Estimated Creat Clear 31, Estimated GFR 33 L, Est GFR ( Amer) 40 L, Glucose 91, Lactate 3.9 H, Calcium 8.9, Total Bilirubin 0.4, AST 31, ALT 31, Alkaline Phosphatase 120, Total Protein 6.9, Albumin 3.8, Globulin 3.1, Albumin/Globulin Ratio 1.2, SARS-CoV-2 (PCR) Not detected, Influenza A Untype (PCR) Not detected, Influenza Type B (PCR) Not detected 01/06/25 17:29: Urine Color Yellow, Urine Appearance Sl cloudy, Urine pH 8.0, Ur Specific [place] 1.025, Urine Protein 3+ A, Urine Glucose (UA) Negative, Urine Ketones Negative, Urine Blood 4+ A, Urine Nitrate Positive A, Urine Bilirubin 2+ A, Urine Urobilinogen 0.2, Ur Leukocyte Esterase 2+ A 01/06/25 21:03: Urine Color Yellow, Urine Appearance Sl cloudy, Urine pH 6.5, Ur Specific [place] <= 1.005, Urine Protein Negative, Urine Glucose (UA) Negative, Urine Ketones Negative, Urine Blood 3+, Urine Nitrate Negative, Urine Bilirubin Negative, Urine Urobilinogen 0.2, Ur Leukocyte Esterase 3+ A, Urine RBC 10-20, Urine WBC Tntc A, Ur Squamous Epith Cells None, Urine Bacteria 4+ A 01/06/25 23:21: Lactate 3.4 H, Troponin I 1.63 H Medical History: Medical History (Updated 01/06/25 @ 22:34 by Ean Gaviria MD) Mood disorder BPH (benign prostatic hyperplasia) Urinary obstruction Hypothyroid Dementia CKD (chronic kidney disease) HTN (hypertension) HLD (hyperlipidemia) Assessment and Plan Assessment and plan all Dx Assessment and Plan for all problems:: Pharmacokinetic dosing service Objective: Age: 74 yo Serum creatinine: 2 mg/dL Height: 68.1 Inches Weight (kg): 86.001 Diagnosis: SEPSIS/UTI Assessment: IBW (kg): 68.63 Dosing wt(kg): 86.001 Estimated Creatinine clearance (ml/min): 31.0 CRCL method: Cockcroft and Gault using ibw(default). Drug selected: Vancomycin Loading dose (mg): 1750 MG Vd (liters): 60.2 (factor used: 0.7 L/kg) Kapil (hr-1): 0.030 Half life (hrs): 23.10 CLvanco=?? 1.806 L/hr Recommended dose: 1500 mg Interval: 36 hrs Infusion time (hrs): 2.0 Predicted peak (mcg/mL): 36.6 Predicted trough (mcg/mL): 13.20 Total body weight is being used for vancomycin dosing. Recommendations: Give Vancomycin 1500 mg q 36 hrs with an expected Cpeak of 36.6 mcg/ml and an expected Ctrough of 13.20 mcg/ml AUC 0-24 /RUPERT Data: RUPERT 0.5 mcg/mL:?? AUC/RUPERT:? 1107.4 RUPERT 1.0 mcg/mL:?? AUC/RUPERT:? 553.7 --------- RUPERT 1.5 mcg/mL:?? AUC/RUPERT:? 369.1 RUPERT 2.0 mcg/mL:?? AUC/RUPERT:? 276.9 Thank you for the consult
[2025-01-07 08:01] LABS: White Blood Count 39.2 K/mm3 (4.8-10.8)
[2025-01-07 08:16] LABS: Chloride 113 mmol/L (98-107); Potassium 4.8 mmoL/L (3.5-5.1); Sodium 137 mmol/L (136-145); Troponin I 2.83 ng/ml (0.00-0.034)
[2025-01-07 08:19] LABS: Blood Urea Nitrogen 31 mg/dl (9-20); Creatinine Clearance Estimated 39 mL/min (50-200); Creatinine,Serum 2.00 mg/dl (0.66-1.25); Estimated Glomerular Filt Rate 33 ml/min (>60); GFR (African American) 40 ML/MIN (>60)
--- NOTE | 2025-01-07 08:19 | ECG_ITS ---
APPROVED REPORT Exam: Resting ECG HR:96 bpm ECG Measurements Heart Rate 96 AXES OR 174 P 60 QRSd 91 QRS 19 QT 351 T 61 QTc 405 Conclusion SINUS RHYTHM NORMAL ECG UNCONFIRMED REPORT Electronically signed by : Omar Rollins MD 01/08/2025 12:46:18
[2025-01-07 08:20] LABS: Anion Gap 11.8 mEq/L (5-15); Calcium 7.7 mg/dl (8.4-10.2); Carbon Dioxide 17 mmol/L (22.0-30.0); Glucose 126 mg/dl (74-100); Magnesium 1.7 mg/dl (1.6-2.3)
[2025-01-07 08:23] LABS: C-Reactive Protein 174.5 mg/L (0-4)
[2025-01-07] MEDS: ASPIRIN 325MG TABLET 325 MG PO (08:25)
[2025-01-07 08:54] LABS: Total Cells Counted 100
[2025-01-07 08:55] LABS: RBC Morphology Normal
[2025-01-07 09:08] LABS: Procalcitonin 115 ng/mL (0.0-2.0)
[2025-01-07] MEDS: NOREPINEPHRINE BITARTRATE/D5W 8 MG/250 ML PLAST..BAG 22.5 MG IV (09:28)
[2025-01-07] MEDS: MEROPENEM 1 GM in 0.9 % SODIUM CHLORIDE 100 ML IV ×2 (09:41→19:52)
[2025-01-07] MEDS: DOCUSATE SODIUM 100 MG CAPSULE PO (09:41)
[2025-01-07] MEDS: POLYETHYLENE GLYCOL 3350 17 GM PACKET PO (09:41)
--- NOTE | 2025-01-07 10:00 | P.CONPHA_ITS ---
Pharmacy Intervention Comments: MEDICATION RECONCILIATION COMPLETE USING MAR FROM [facility].
--- NOTE | 2025-01-07 10:00 | HMH.PHAINT1 ---
Pharmacy Intervention Comments: MEDICATION RECONCILIATION COMPLETE USING MAR FROM [facility].
[2025-01-07] MEDS: 0.9 % SODIUM CHLORIDE 1000ML 1,000 ML 100 ML IV ×2 (10:59→19:04)
[2025-01-07 11:14] LABS: Acinetobacter calcoaceticus-ba Not Detected; Bacteroides fragilis Not Detected; CTX-M Not Detected; Candida auris Not Detected; Candida glabrata Not Detected; Enterobacterales Detected; Enterococcus faecalis Not Detected; Enterococcus faecium Not Detected; IMP Not Detected; KPC Not Detected; Klebsiella aerogenes Not Detected; Klebsiella pneumoniae grp Not Detected; NDM Not Detected; OXA-48-like Not Detected; Proteus spp. Detected; Salmonella spp. Not Detected; Serratia marcescens Not Detected; Staphylococcus epidermidis Not Detected; Staphylococcus lugdunensis Not Detected; Staphylococcus spp. Not Detected; Stenotrophomonas maltophilia Not Detected; Streptococcus agalactiae(GrpB) Not Detected; Streptococcus pyogenes Group A Not Detected; Streptococcus spp. Not Detected; VIM Not Detected
[2025-01-07] MEDS: ACETAMINOPHEN 500MG TAB 1000 MG PO ×2 (15:36→23:34)
--- NOTE | 2025-01-07 15:48 | PC.NURSE ---
IV intake from multiple shifts
--- NOTE | 2025-01-07 16:25 | EXP.PN ---
Subjective *Date: 01/07/25 *Time: 16:25 Interval history: Patient looks weak, but does not state any acute concerns. No chest pain, shortness of breath, abdominal pain. Lying in bed mostly sleeping. Exam Data for Last 24 hours Vital signs and Labs for Last 24 Hours: Temp Pulse Resp BP Pulse Ox O2 Del Method 100.0 F H 97 H 19 109/60 L 95 Room Air 01/07/25 16:00 01/07/25 16:00 01/07/25 16:00 01/07/25 16:00 01/07/25 16:00 01/07/25 16:00 Laboratory Results - last 24 hr 01/06/25 17:25: WBC 5.7, RBC 3.71 L, Hgb 10.8 L, Hct 34.0 L, MCV 91.6, MCH 29.1, MCHC 31.8, RDW 14.0, Plt Count 251, MPV 8.4, Neut % (Auto) 88.8 H, Lymph % (Auto) 8.5 L, [place] % (Auto) 0.4 L, Eos % (Auto) 1.4, Baso % (Auto) 0.0 L, Neut # (Auto) 5.0, Lymph # (Auto) 0.5 L, [place] # (Auto) 0.0 L, Eos # (Auto) 0.1, Baso # (Auto) 0.0, Total Counted 100, Neutrophils % (Manual) 88 H, Lymphocytes % (Manual) 8 L, Monocytes % (Manual) 2, Eosinophils % (Manual) 2, Platelet Estimate Normal, RBC Morphology Normal, VBG pH 7.33, VBG pCO2 46.2, VBG pO2 29.7, VBG HCO3 23.9, VBG Total CO2 25.3, VBG O2 Saturation 50.8, VBG Base Excess -2.1, VBG Lactic Acid 4.3 H, Sodium 138, Potassium 4.4, Chloride 105, Carbon Dioxide 24, Anion Gap 13.4, BUN 28 H, Creatinine 2.00 H, Estimated Creat Clear 31, Estimated GFR 33 L, Est GFR ( Amer) 40 L, Glucose 91, Lactate 3.9 H, Calcium 8.9, Total Bilirubin 0.4, AST 31, ALT 31, Alkaline Phosphatase 120, Total Protein 6.9, Albumin 3.8, Globulin 3.1, Albumin/Globulin Ratio 1.2, SARS-CoV-2 (PCR) Not detected, Influenza A Untype (PCR) Not detected, Influenza Type B (PCR) Not detected 01/06/25 17:29: Urine Color Yellow, Urine Appearance Sl cloudy, Urine pH 8.0, Ur Specific [place] 1.025, Urine Protein 3+ A, Urine Glucose (UA) Negative, Urine Ketones Negative, Urine Blood 4+ A, Urine Nitrate Positive A, Urine Bilirubin 2+ A, Urine Urobilinogen 0.2, Ur Leukocyte Esterase 2+ A 01/06/25 18:10: A. baumannii (PCR) Not detected 01/06/25 18:10: A. baumannii (PCR) Not detected, Bacteroides fragilis Not detected 01/06/25 18:10: Bacteroides fragilis Not detected, Sabrina albicans (PCR) Not detected 01/06/25 18:10: Sabrina albicans (PCR) Not detected, Sabrina auris (PCR) Not detected 01/06/25 18:10: Sabrina auris (PCR) Not detected, C. glabrata (PCR) Not detected 01/06/25 18:10: C. glabrata (PCR) Not detected, C. krusei (PCR) Not detected 01/06/25 18:10: C. krusei (PCR) Not detected, C. parapsilosis (PCR) Not detected 01/06/25 18:10: C. parapsilosis (PCR) Not detected, C. tropicalis (PCR) Not detected 01/06/25 18:10: C. tropicalis (PCR) Not detected, Cryptococcus neoformans PCR Not detected 01/06/25 18:10: Cryptococcus neoformans PCR Not detected, Enterobacterales (PCR) Detected 01/06/25 18:10: Enterobacterales (PCR) Detected, Enterococc faecalis PCR Not detected 01/06/25 18:10: Enterococc faecalis PCR Not detected, Enterococc faecium PCR Not detected 01/06/25 18:10: Enterococc faecium PCR Not detected, E. coli (PCR) Not detected 01/06/25 18:10: E. coli (PCR) Not detected, H. influenzae DNA Not detected 01/06/25 18:10: H. influenzae DNA Not detected, Klebsiella aerogenes (PCR) Not detected 01/06/25 18:10: Klebsiella aerogenes (PCR) Not detected, Klebsiella oxytoca PCR Not detected 01/06/25 18:10: Klebsiella oxytoca PCR Not detected, K. pneumoniae group (PCR) Not detected 01/06/25 18:10: K. pneumoniae group (PCR) Not detected, List. monocytogenes PCR Not detected 01/06/25 18:10: List. monocytogenes PCR Not detected, N. meningitidis (PCR) Not detected 01/06/25 18:10: N. meningitidis (PCR) Not detected, Proteus species (PCR) Detected 01/06/25 18:10: Proteus species (PCR) Detected, Salmonella spp. (PCR) Not detected 01/06/25 18:10: Salmonella spp. (PCR) Not detected, Serratia marcescens PCR Not detected 01/06/25 18:10: Serratia marcescens PCR Not detected, Staphylococcus sp PCR Not detected 01/06/25 18:10: Staphylococcus sp PCR Not detected, Staph aureus (PCR) Not detected 01/06/25 18:10: Staph aureus (PCR) Not detected, mecA/C & MREJ Resist Gene Not applicable 01/06/25 18:10: mecA/C & MREJ Resist Gene Not applicable, mecA/C-Methicil Resis Gene Not applicable 01/06/25 18:10: mecA/C-Methicil Resis Gene Not applicable, Staph epidermidis (PCR) Not detected 01/06/25 18:10: Staph epidermidis (PCR) Not detected, Staph lugdunensis (TEM-PCR) Not detected 01/06/25 18:10: Staph lugdunensis (TEM-PCR) Not detected, S. maltophilia (PCR) Not detected 01/06/25 18:10: S. maltophilia (PCR) Not detected, Streptococcus sp PCR Not detected 01/06/25 18:10: Streptococcus sp PCR Not detected, S.agalactiae Grp B AUGIE Not detected 01/06/25 18:10: S.agalactiae Grp B AUGIE Not detected, Strep pneumoniae (PCR) Not detected 01/06/25 18:10: Strep pneumoniae (PCR) Not detected, S. pyogenes GrpA AUGIE Not detected 01/06/25 18:10: S. pyogenes GrpA AUGIE Not detected, P. aeruginosa (PCR) Not detected 01/06/25 18:10: P. aeruginosa (PCR) Not detected, Ariadne/B-Vanco Res Genes Not applicable 01/06/25 18:10: Ariadne/B-Vanco Res Genes Not applicable, blaIMP Car res Gene PCR Not detected 01/06/25 18:10: blaIMP Car res Gene PCR Not detected, KPC-Carbap Res Gene PCR Not detected 01/06/25 18:10: KPC-Carbap Res Gene PCR Not detected, blaNDM Car Res Gene PCR Not detected 01/06/25 18:10: blaNDM Car Res Gene PCR Not detected, OXA-48 Carbapenem Resis Gene (PCR) Not detected 01/06/25 18:10: OXA-48 Carbapenem Resis Gene (PCR) Not detected, blaVIM Car Res Gene PCR Not detected 01/06/25 18:10: blaVIM Car Res Gene PCR Not detected, CTX-M Gene Resistance (PCR) Not detected 01/06/25 18:10: CTX-M Gene Resistance (PCR) Not detected, MCR-1 Resistance Gene Not applicable 01/06/25 18:10: MCR-1 Resistance Gene Not applicable 01/06/25 21:03: Urine Color Yellow, Urine Appearance Sl cloudy, Urine pH 6.5, Ur Specific [place] <= 1.005, Urine Protein Negative, Urine Glucose (UA) Negative, Urine Ketones Negative, Urine Blood 3+, Urine Nitrate Negative, Urine Bilirubin Negative, Urine Urobilinogen 0.2, Ur Leukocyte Esterase 3+ A, Urine RBC 10-20, Urine WBC Tntc A, Ur Squamous Epith Cells None, Urine Bacteria 4+ A 01/06/25 23:21: Lactate 3.4 H, Troponin I 1.63 H 01/07/25 07:20: WBC 39.2 H* D, RBC 3.32 L, Hgb 9.9 L, Hct 30.6 L, MCV 92.2, MCH 29.8, MCHC 32.4, RDW 14.6, Plt Count 225, MPV 8.2, Neut % (Auto) 90.8 H, Lymph % (Auto) 1.8 L, [place] % (Auto) 4.5, Eos % (Auto) 0.0 L, Baso % (Auto) 0.3, Neut # (Auto) 35.6 H, Lymph # (Auto) 0.7, [place] # (Auto) 1.8 H, Eos # (Auto) 0.0, Baso # (Auto) 0.1, Total Counted 100, Neutrophils % (Manual) 87 H, Band Neutrophils % 8.0, Monocytes % (Manual) 5, Platelet Estimate Normal, RBC Morphology Normal, Sodium 137, Potassium 4.8, Chloride 113 H, Carbon Dioxide 17 L, Anion Gap 11.8, BUN 31 H, Creatinine 2.00 H, Estimated Creat Clear 39, Estimated GFR 33 L, Est GFR ( Amer) 40 L, Glucose 126 H D, Lactate 1.5, Calcium 7.7 L, Magnesium 1.7, Troponin I 2.83 H, C-Reactive Protein 174.5 H, Procalcitonin 115 H I & O for Last 24 hours: Intake & Output 01/04/25 01/05/25 01/06/25 01/07/25 23:59 23:59 23:59 23:59 Intake Total 11.598 / 816.453 8245.738 / 3989.738 Output Total 975 / 1135 3060 / 3060 Balance -963.402 / -691.233 929.738 / 929.738 Weight 84.867 kg 86.001 kg Microbiology Reports for the Last 24 Hours: Microbiology 01/06/25 18:06 Blood Blood Culture - Final 01/06/25 18:00 Blood Blood Culture - Final Constitutional Constitutional: no acute distress *Routine HEENT Exam Head: Present normocephalic Eye: Present EOMI and PERRL ENT: Present mucous membranes moist *Routine Neck Exam Neck: Present supple; Absent lymphadenopathy *Routine Respiratory Exam Respiratory: Present CTA bilaterally *Routine Cardiovascular Exam Cardiovascular: Present RRR *Routine Abdominal Exam Abdominal: Present soft and normoactive bowel sounds; Absent tenderness *Routine Extremities Exam Extremities: Absent cyanosis, clubbing or edema *Routine Skin Exam Skin: Present warm; Absent rash *Routine Neurological Exam Neurological: Present alert and oriented X3 Assessment and Plan *Assessment and plan (1) Septic shock: Status: Acute Category: Medical Code(s): A41.9 - Sepsis, unspecified organism; R65.21 - Severe sepsis with septic shock (2) Obstructive uropathy: Status: Acute Category: Medical Code(s): N13.9 - Obstructive and reflux uropathy, unspecified (3) BPH (benign prostatic hyperplasia): Status: Acute Category: Medical Code(s): N40.0 - Benign prostatic hyperplasia without lower urinary tract symptoms (4) Acute UTI: Status: Acute Category: Medical Code(s): N39.0 - Urinary tract infection, site not specified (5) CKD (chronic kidney disease): Status: Acute Category: Medical Code(s): N18.9 - Chronic kidney disease, unspecified (6) Hypothyroid: Status: Acute Category: Medical Code(s): E03.9 - Hypothyroidism, unspecified Plan This is a 74-year-old male who presents from his halfway facility for concerns of sepsis with chronic indwelling Manning catheter. Problems addressed as follows: Septic shock, present on admission #UTI #Bacteremia, suspected Febrile, tachycardic, tachypnea, leukocytosis, lactic acidosis, source identified. 100.4F. ICU care with continuous telemetry and pulse oximetry monitoring IV fluid resuscitation with reflex lactic acid pending ? Continue Levophed, NS at 100 L/h. Maps continue to be mid 60s. ? WBC 39.2, procalcitonin 115. ? Continue IV vancomycin, escalated to meropenem. Obstructive uropathy Benign prostatic hypertrophy Acute urinary tract infection Chronic Manning catheter Manning catheter changed out in ED CT A/P with: Urinary retention with prostate enlargement, cystitis, pyelonephritis, FC in membranous urethra Urinalysis abnormal Urine culture pending Alpha-jania therapy IV antibiotic Chronic kidney disease stage IIIb Baseline creatinine 1.9. Creatinine today 2.0. Trending electrolytes and creatinine Accurate I's and O's Avoiding NSAIDs Constipation IV fluid resuscitation Bowel regimen Hypothyroidism Levothyroxine replacement therapy Mood disorder Routine nursing interaction Antipsychotic therapy ECG with LQo=165 ms Right adrenal mass CT A/P with: 2.3x 2.1 cm right adrenal mass Outpatient follow-up with PCP Radiology recommends with and without intravenous contrast MRI imaging on a nonemergent basis The length of stay for this patient will be 2 midnights or greater due to above diagnoses. Total amount of critical care time spent was 31 minutes not counting procedures performed. This time included high complexity decision making to assess and treat vital organ system failure in this patient who has impairment of 1 or more vital organ systems such as there is a high probability of imminent or life-threatening deterioration of the patient's condition. Failure to initiate the above interventions on an urgent basis would likely result in sudden, clinically significant or life-threatening deterioration in the patient's condition. The patient required my highest level of preparedness to intervene emergently and I personally spent this critical care time directly and personally managing the patient. This critical care time included obtaining a history; examining the patient; frequent vital monitoring including pulse oximetry; ordering and review of studies; arranging urgent treatment with development of a management plan; evaluation of patient's response to treatment; frequent reassessment; and, discussions with other providers including ICU staff.
[2025-01-07] MEDS: FINASTERIDE 5MG TABLET 5 MG PO (20:02)
[2025-01-07] MEDS: TAMSULOSIN 0.4MG CAPSULE 0.4 MG PO (20:02)
[2025-01-07] MEDS: PANTOPRAZOLE 40MG TABLET 40 MG PO (20:02)
[2025-01-08] VITALS (49 sets, daily range): BP systolic 92–136; BP diastolic 43–71; PULSE 87–114; RESP 18–42; TEMP 37.2–38.5; O2SAT 90–97; BMI 28.8
[2025-01-08] MEDS: NOREPINEPHRINE BITARTRATE/D5W 8 MG/250 ML PLAST..BAG 5.63 MG IV (01:03)
[2025-01-08] MEDS: 0.9 % SODIUM CHLORIDE 1000ML 1,000 ML 100 ML IV (05:00)
[2025-01-08] MEDS: VANCOMYCIN/WATER FOR INJ (PEG) 1.5 GM/300 ML PIGGYBACK IV (06:06)
[2025-01-08] MEDS: ACETAMINOPHEN 500MG TAB 1000 MG PO ×2 (06:15→23:10)
[2025-01-08 07:32] LABS: Hematocrit 30.5 % (42.0-52.0); Hemoglobin 9.7 g/dL (14.1-18.0); Immature Granulocytes % 0.6 %; Mean Corpuscular HGB Conc 31.8 g/dL (31.8-35.4); Mean Corpuscular Hemoglobin 29.9 pg (27.0-31.2); Mean Corpuscular Volume 94.1 fl (80-94); Nucleated Red Blood Cells % 0 %; Platelet Count 175 K/mm3 (142-424); Red Blood Count 3.24 M/mm3 (4.60-6.20); Red Cell Distribution Width-SD 51.8 fL; White Blood Count 16.1 K/mm3 (4.8-10.8)
[2025-01-08 07:41] LABS: Albumin Level 2.9 g/dl (3.5-5.0); Chloride 118 mmol/L (98-107); Sodium 141 mmol/L (136-145)
[2025-01-08 07:42] LABS: Potassium 4.5 mmoL/L (3.5-5.1)
[2025-01-08 07:44] LABS: Alanine Aminotransferase 68 U/L (12-78); Alkaline Phosphatase 142 U/L (38-126); Aspartate Amino Transferase 93 U/L (17-59); Bilirubin,Total 0.4 mg/dl (0.2-1.3); Blood Urea Nitrogen 26 mg/dl (9-20); Carbon Dioxide 21 mmol/L (22.0-30.0); Creatinine Clearance Estimated 41 mL/min (50-200); Creatinine,Serum 1.90 mg/dl (0.66-1.25); Estimated Glomerular Filt Rate 35 ml/min (>60); GFR (African American) 42 ML/MIN (>60); Total Protein,Serum 5.7 g/dl (6.3-8.2)
[2025-01-08 07:45] LABS: Calcium 7.6 mg/dl (8.4-10.2); Glucose 88 mg/dl (74-100); Magnesium 1.9 mg/dl (1.6-2.3)
[2025-01-08 07:46] LABS: Albumin/Globulin Ratio 1.0 (1.1-1.8); Anion Gap 6.5 mEq/L (5-15); Globulin 2.8 g/dL (1.3-3.2)
[2025-01-08 07:51] LABS: C-Reactive Protein 228.4 mg/L (0-4)
[2025-01-08 08:16] LABS: Procalcitonin 93.0 ng/mL (0.0-2.0)
[2025-01-08] MEDS: ASPIRIN EC 81MG TABLET 81 MG PO (08:28)
[2025-01-08] MEDS: MEROPENEM 1 GM in 0.9 % SODIUM CHLORIDE 100 ML IV ×2 (08:29→20:08)
[2025-01-08 08:47] LABS: Troponin I 1.57 ng/ml (0.00-0.034)
--- NOTE | 2025-01-08 16:13 | EXP.PN ---
Subjective *Date: 01/08/25 *Time: 16:13 Interval history: Patient states he is feeling better, tolerating p.o. intake. Pleasant, conversational. Exam Data for Last 24 hours Vital signs and Labs for Last 24 Hours: Temp Pulse Resp BP Pulse Ox O2 Del Method 99.1 F 90 30 H 112/57 L 95 Room Air 01/08/25 14:00 01/08/25 16:00 01/08/25 14:00 01/08/25 14:00 01/08/25 15:16 01/08/25 15:50 Laboratory Results - last 24 hr 01/06/25 17:29: Urine Color Yellow, Urine Appearance Sl cloudy, Urine pH 8.0, Ur Specific [place] 1.025, Urine Protein 3+ A, Urine Glucose (UA) Negative, Urine Ketones Negative, Urine Blood 4+ A, Urine Nitrate Positive A, Urine Bilirubin 2+ A, Urine Urobilinogen 0.2, Ur Leukocyte Esterase 2+ A 01/08/25 07:00: WBC 16.1 H D, RBC 3.24 L, Hgb 9.7 L, Hct 30.5 L, MCV 94.1 H, MCH 29.9, MCHC 31.8, RDW 15.0, Plt Count 175, MPV 8.5, Neut % (Auto) 87.4 H, Lymph % (Auto) 5.2 L, [place] % (Auto) 5.0, Eos % (Auto) 1.6, Baso % (Auto) 0.2, Neut # (Auto) 14.1 H, Lymph # (Auto) 0.8, [place] # (Auto) 0.8, Eos # (Auto) 0.3, Baso # (Auto) 0.0, Sodium 141, Potassium 4.5, Chloride 118 H, Carbon Dioxide 21 L, Anion Gap 6.5, BUN 26 H, Creatinine 1.90 H, Estimated Creat Clear 41, Estimated GFR 35 L, Est GFR ( Amer) 42 L, Glucose 88 D, Calcium 7.6 L, Magnesium 1.9 D, Total Bilirubin 0.4, AST 93 H D, ALT 68 D, Alkaline Phosphatase 142 H, Troponin I 1.57 H, C-Reactive Protein 228.4 H, Total Protein 5.7 L, Albumin 2.9 L, Globulin 2.8, Albumin/Globulin Ratio 1.0 L, Procalcitonin 93.0 H I & O for Last 24 hours: Intake & Output 01/05/25 01/06/25 01/07/25 01/08/25 23:59 23:59 23:59 23:59 Intake Total 11.598 / 714.145 5172.457 / 4512.457 3517.032 / 3517.032 Output Total 975 / 1135 4510 / 4760 2975 / 2975 Balance -963.402 / -691.233 2.457 / -247.543 542.032 / 542.032 Weight 84.867 kg 86.001 kg 86.364 kg Microbiology Reports for the Last 24 Hours: Microbiology 01/06/25 17:29 Urine,Clean Catch Urine Culture - Preliminary 01/06/25 18:00 Blood Blood Culture - Preliminary Gram Negative Rods 01/06/25 18:06 Blood Blood Culture - Preliminary Gram Negative Rods 01/06/25 21:56 Anus CRE Surveillance Culture - Final 01/06/25 21:03 Urine,Catheterized Urine Culture - Final No growth. Constitutional Constitutional: no acute distress *Routine HEENT Exam Head: Present normocephalic Eye: Present EOMI and PERRL ENT: Present mucous membranes moist *Routine Neck Exam Neck: Present supple; Absent lymphadenopathy *Routine Respiratory Exam Respiratory: Present CTA bilaterally *Routine Cardiovascular Exam Cardiovascular: Present RRR *Routine Abdominal Exam Abdominal: Present soft and normoactive bowel sounds; Absent tenderness *Routine Extremities Exam Extremities: Absent cyanosis, clubbing or edema *Routine Skin Exam Skin: Present warm; Absent rash *Routine Neurological Exam Neurological: Present alert and oriented X3 Assessment and Plan *Assessment and plan (1) Septic shock: Status: Acute Category: Medical Code(s): A41.9 - Sepsis, unspecified organism; R65.21 - Severe sepsis with septic shock (2) Obstructive uropathy: Status: Acute Category: Medical Code(s): N13.9 - Obstructive and reflux uropathy, unspecified (3) BPH (benign prostatic hyperplasia): Status: Acute Category: Medical Code(s): N40.0 - Benign prostatic hyperplasia without lower urinary tract symptoms (4) Acute UTI: Status: Acute Category: Medical Code(s): N39.0 - Urinary tract infection, site not specified (5) CKD (chronic kidney disease): Status: Acute Category: Medical Code(s): N18.9 - Chronic kidney disease, unspecified (6) Hypothyroid: Status: Acute Category: Medical Code(s): E03.9 - Hypothyroidism, unspecified Plan This is a 74-year-old male who presents from his [facility] facility for concerns of sepsis with chronic indwelling Manning catheter. Problems addressed as follows: Septic shock, present on admission #UTI #Gram-negative bacteremia Initially febrile, tachycardic, tachypnea, leukocytosis, lactic acidosis, source identified. Resolving. ? Weaned off Levophed today. ? WBC 39.2 to 16.1, procalcitonin 115 to 93. ? Patient states he is feeling better, tolerating p.o. intake. Pleasant, conversational. ? Continue meropenem 1 g every 12 hours, discontinue vancomycin. ? Urine cultures does not show growth, but blood cultures show Proteus growth. Pending sensitivities. ? Follow-up morning CBC, CMP, procalcitonin. Obstructive uropathy Benign prostatic hypertrophy Acute urinary tract infection Chronic Manning catheter Manning catheter changed out in ED CT A/P with: Urinary retention with prostate enlargement, cystitis, pyelonephritis, FC in membranous urethra Urinalysis abnormal Urine culture pending ?Continue Flomax 0.4 mg, started finasteride. Chronic kidney disease stage IIIb Baseline creatinine 1.9. Creatinine today 1.9. Trending electrolytes and creatinine Accurate I's and O's Avoiding NSAIDs Constipation Bowel regimen Hypothyroidism Levothyroxine replacement therapy Mood disorder Routine nursing interaction Antipsychotic therapy ECG with VPb=696 ms Right adrenal mass CT A/P with: 2.3x 2.1 cm right adrenal mass Outpatient follow-up with PCP Radiology recommends with and without intravenous contrast MRI imaging on a nonemergent basis
[2025-01-08] MEDS: PANTOPRAZOLE 40MG TABLET 40 MG PO (20:08)
[2025-01-08] MEDS: FINASTERIDE 5MG TABLET 5 MG PO (20:08)
[2025-01-08] MEDS: TAMSULOSIN 0.4MG CAPSULE 0.4 MG PO (20:08)
[2025-01-09] VITALS (19 sets, daily range): BP systolic 120–146; BP diastolic 53–84; PULSE 73–102; RESP 14–25; TEMP 37.5–38.2; O2SAT 92–98; BMI 28.9
--- NOTE | 2025-01-09 06:00 | CA_ITS ---
APPROVED REPORT EXAM: Comprehensive 2D, Doppler, and color-flow Echocardiogram Dog [employer]eder: Jossie Lacy, RT(R) Ht: 5 ft 9 in Wt: 190lbs BSA: 2.02 BP: 115/87 mmHg Indications: hypotension post [place] change, hyperlipidemia 2D Dimensions LVEF (Narayanan's) 60.40 % M: 52 - 72 LV Volume 80.40 mL M: 62 - 150 LV Volume Index 39.8 mL/m2 M: 34 - 74 LA Volume 26.90 mL LA Volume Index 13.32 mL/m2 (M/F) 16-34 EF AP4 58.40 % EF AP2 60.8 % EF BP 60.4 % GL Strain -18.8 % M-Mode Dimensions RVDd 3.43 cm (0.9-2.6) LVDd 3.97 cm (3.5-5.7) LVDs 2.93 cm (3.5-5.7) IVSd 0.93 cm (0.6-1.1) PWd 0.82 cm (0.6-1.1) EF (Teich) 52.00% FS 26.20% EDV (Teich) 68.80 mL ESV (Teich) 33.00 mL LV Diastology E Decel Time 203 (160-240 msec) E/A Ratio 1.33 Aortic Valve STEFANIE Index 1.24 cm2/m2 AoV Peak Carlos. 144.0 (50-130 cm/s) AO Peak GR. 8.30 mmHg AO Mean GR. 4.20 (<5 mmHg) AO VTI 27.7 (18-25 cm) STEFANIE (VTI) 2.57 (2.5-4.5 cm2) Mitral Valve MV A Velocity 90.0 (40-130 cm/s) E/A Ratio 1.33 Tricuspid Valve TR P. Velocity 170.00 cm/s Left Ventricle The left ventricle is normal size. Left ventricular systolic function is normal. The left ventricular ejection fraction is within the normal range. There is normal left ventricular wall thickness. There is normal LV segmental wall motion. The left ventricular diastolic function is normal. LVEF is 55% Right Ventricle The right ventricle is borderline dilated. The right ventricular systolic function is normal. Atria The left atrium is mildly dilated. The right atrium is mildly dilated. Color Doppler demonstrates presence of left to right interatrial shunt. Aortic Valve The aortic valve is mildly thickened. There is no hemodynamically significant aortic valvular stenosis. Trace aortic regurgitation is present. Mitral Valve The mitral valve is normal in structure. No evidence of mitral valve stenosis. Mild mitral regurgitation is present. Tricuspid Valve The tricuspid valve leaflets are thin and pliable. Mild tricuspid regurgitation. RVSP is 20-25 mmHg. Pulmonic Valve The pulmonary valve is grossly normal in structure. Trace pulmonic valve regurgitation is present. Great Vessels The aortic root is normal in size. IVC is normal in size and collapses >50% with inspiration. Pericardium There is no pericardial effusion. Other Information Study Quality: Fair Conclusion Normal biventricular systolic function. Borderline RV dilation. Mild biatrial dilation. Mild MR, mild TR. Color Doppler demonstrates presence of left to right interatrial shunt. In the setting of normal RV size/function and age > 65 years, no further evaluation for interatrial shunt is generally recommended. Clinical correlation is required. Electronically signed by : Shyann Gonzalez MD 01/09/2025 19:44:39
[2025-01-09 06:08] LABS: Hematocrit 28.7 % (42.0-52.0); Hemoglobin 9.1 g/dL (14.1-18.0); Immature Granulocytes % 0.5 %; Mean Corpuscular HGB Conc 31.7 g/dL (31.8-35.4); Mean Corpuscular Hemoglobin 29.4 pg (27.0-31.2); Mean Corpuscular Volume 92.9 fl (80-94); Nucleated Red Blood Cells % 0 %; Platelet Count 172 K/mm3 (142-424); Red Blood Count 3.09 M/mm3 (4.60-6.20); Red Cell Distribution Width-SD 52.0 fL; White Blood Count 12.1 K/mm3 (4.8-10.8)
[2025-01-09 06:16] LABS: Chloride 118 mmol/L (98-107)
[2025-01-09 06:17] LABS: Albumin Level 2.8 g/dl (3.5-5.0); Potassium 4.6 mmoL/L (3.5-5.1); Sodium 143 mmol/L (136-145)
[2025-01-09 06:20] LABS: Alanine Aminotransferase 84 U/L (12-78); Albumin/Globulin Ratio 1.0 (1.1-1.8); Alkaline Phosphatase 165 U/L (38-126); Anion Gap 10.6 mEq/L (5-15); Aspartate Amino Transferase 90 U/L (17-59); Bilirubin,Total 0.3 mg/dl (0.2-1.3); Blood Urea Nitrogen 27 mg/dl (9-20); Calcium 8.4 mg/dl (8.4-10.2); Carbon Dioxide 19 mmol/L (22.0-30.0); Creatinine Clearance Estimated 41 mL/min (50-200); Creatinine,Serum 1.90 mg/dl (0.66-1.25); Estimated Glomerular Filt Rate 35 ml/min (>60); GFR (African American) 42 ML/MIN (>60); Globulin 2.9 g/dL (1.3-3.2); Glucose 82 mg/dl (74-100); Magnesium 2.0 mg/dl (1.6-2.3); Total Protein,Serum 5.7 g/dl (6.3-8.2)
[2025-01-09 06:25] LABS: C-Reactive Protein 173.8 mg/L (0-4)
[2025-01-09] MEDS: MEROPENEM 1 GM in 0.9 % SODIUM CHLORIDE 100 ML IV ×2 (08:12→20:22)
[2025-01-09] MEDS: ASPIRIN EC 81MG TABLET 81 MG PO (08:15)
[2025-01-09] MEDS: POLYETHYLENE GLYCOL 3350 17 GM PACKET PO (08:15)
[2025-01-09] MEDS: DOCUSATE SODIUM 100 MG CAPSULE PO (08:15)
--- NOTE | 2025-01-09 08:25 | EXP.DC.SUM ---
General Admission date:: 01/06/25 HPI HPI HPI: This is a 74-year-old male that presents to [facility] emergency department from [facility] for fever, tachycardia and low blood pressures. He has a chronic indwelling Manning catheter with recognized attempts at removing it at the senior care facility with concerns of urethral trauma. He was sent to the ED for evaluation. Currently the patient reports no pelvic pain, gross hematuria, flank pain, confusion, fever or chills. He denies nausea, vomiting or diarrhea. In the ED he was febrile with a temperature 100.6, tachycardic and blood pressure 80/40. His laboratory studies identified a leukocytosis and elevated lactic acid. His urine was abnormal. He received IV fluid resuscitation with repeat lactic acid pending. He received IV antibiotic therapy and required IV pressor support to maintain appropriate blood pressures. Hospital medicine was asked to admit the patient for his presenting septic shock. Hospital Course Hospital Course Hospital Course: Total time spent on discharge: 32 minutes on chart review, counseling, documentation, and direct care with patient. Exam Data for Last 24 hours Vital signs and Labs for Last 24 Hours: Temp Pulse Resp BP Pulse Ox O2 Del Method O2 Flow Rate 99.5 F 95 H 20 123/62 95 Room Air 2 01/09/25 04:00 01/09/25 08:00 01/09/25 07:47 01/09/25 07:47 01/09/25 07:47 01/09/25 07:47 01/09/25 05:00 Laboratory Results - last 24 hr 01/08/25 07:00: Troponin I 1.57 H 01/09/25 05:34: WBC 12.1 H, RBC 3.09 L, Hgb 9.1 L, Hct 28.7 L, MCV 92.9, MCH 29.4, MCHC 31.7 L, RDW 15.3, Plt Count 172, MPV 8.8, Neut % (Auto) 82.6 H, Lymph % (Auto) 8.0 L, Beaver % (Auto) 6.3, Eos % (Auto) 2.4, Baso % (Auto) 0.2, Neut # (Auto) 10.0 H, Lymph # (Auto) 1.0, Beaver # (Auto) 0.8, Eos # (Auto) 0.3, Baso # (Auto) 0.0, Sodium 143, Potassium 4.6, Chloride 118 H, Carbon Dioxide 19 L, Anion Gap 10.6, BUN 27 H, Creatinine 1.90 H, Estimated Creat Clear 41, Estimated GFR 35 L, Est GFR ( Amer) 42 L, Glucose 82, Calcium 8.4, Magnesium 2.0, Total Bilirubin 0.3, AST 90 H, ALT 84 H, Alkaline Phosphatase 165 H, C-Reactive Protein 173.8 H, Total Protein 5.7 L, Albumin 2.8 L, Globulin 2.9, Albumin/Globulin Ratio 1.0 L I & O for Last 24 hours: Intake & Output 01/06/25 01/07/25 01/08/25 01/09/25 23:59 23:59 23:59 23:59 Intake Total 11.598 / 183.868 0344.457 / 4512.457 3727.032 / 3727.032 Output Total 975 / 1135 4510 / 4760 4250 / 4700 2049 Balance -963.402 / -691.233 2.457 / -247.543 -522.968 / -972.968 -2049 Weight 84.867 kg 86.001 kg 86.364 kg 86.5 kg Microbiology Reports for the Last 24 Hours: Microbiology 01/06/25 18:06 Blood Blood Culture - Preliminary Proteus mirabilis 01/06/25 18:00 Blood Blood Culture - Preliminary Proteus mirabilis 01/06/25 17:29 Urine,Clean Catch Urine Culture - Preliminary 01/06/25 21:56 Anus CRE Surveillance Culture - Final 01/06/25 21:03 Urine,Catheterized Urine Culture - Final No growth. Results Data Completed and Pending Labs on day of discharge: Labs from last 24 hours 01/09/25 01/08/25 05:34 07:00 WBC 12.1 H RBC 3.09 L Hgb 9.1 L Hct 28.7 L MCV 92.9 MCH 29.4 MCHC 31.7 L RDW 15.3 Plt Count 172 MPV 8.8 Neut % (Auto) 82.6 H Lymph % (Auto) 8.0 L Beaver % (Auto) 6.3 Eos % (Auto) 2.4 Baso % (Auto) 0.2 Neut # (Auto) 10.0 H Lymph # (Auto) 1.0 Beaver # (Auto) 0.8 Eos # (Auto) 0.3 Baso # (Auto) 0.0 Sodium 143 Potassium 4.6 Chloride 118 H Carbon Dioxide 19 L Anion Gap 10.6 BUN 27 H Creatinine 1.90 H Estimated Creat Clear 41 Estimated GFR 35 L Est GFR ( Amer) 42 L Glucose 82 Calcium 8.4 Magnesium 2.0 Total Bilirubin 0.3 AST 90 H ALT 84 H Alkaline Phosphatase 165 H Troponin I 1.57 H C-Reactive Protein 173.8 H Total Protein 5.7 L Albumin 2.8 L Globulin 2.9 Albumin/Globulin Ratio 1.0 L Preliminary micro results at discharge 01/06/25 18:06 Blood Culture - Preliminary Blood Proteus mirabilis 01/06/25 18:00 Blood Culture - Preliminary Blood Proteus mirabilis 01/06/25 17:29 Urine Culture - Preliminary Urine,Clean Catch DS: Diagnosis Discharge Diagnosis (1) Septic shock: Status: Acute Code(s): A41.9 - Sepsis, unspecified organism; R65.21 - Severe sepsis with septic shock (2) Obstructive uropathy: Status: Acute Code(s): N13.9 - Obstructive and reflux uropathy, unspecified (3) BPH (benign prostatic hyperplasia): Status: Acute Code(s): N40.0 - Benign prostatic hyperplasia without lower urinary tract symptoms (4) Acute UTI: Status: Acute Code(s): N39.0 - Urinary tract infection, site not specified (5) CKD (chronic kidney disease): Status: Acute Code(s): N18.9 - Chronic kidney disease, unspecified (6) Hypothyroid: Status: Acute Code(s): E03.9 - Hypothyroidism, unspecified Meds Home Medications and Allergies Home Medications ?Medication ?Instructions ?Recorded ?Confirmed ?Type acetaminophen 500 mg capsule 500 mg PO Q6HP PRN Pain (Scale 12/06/24 01/07/25 History Score 1-3) ammonium lactate 12 % lotion 1 applic topical BID 12/06/24 01/07/25 History finasteride 5 mg tablet (Proscar) 5 mg PO DAILY 12/06/24 01/07/25 History polyethylene glycol 3350 17 17 g PO BID 12/06/24 01/07/25 History gram/dose oral powder (Miralax) risperidone 0.25 mg disintegrating 0.25 mg PO BID 12/06/24 01/07/25 History tablet sennosides 8.6 mg capsule (senna) 17.2 mg PO HS 12/06/24 01/07/25 History tamsulosin 0.4 mg capsule (Flomax) 0.4 mg PO 1700 12/06/24 01/07/25 History melatonin 1 mg tablet 1 mg PO HSP PRN Sleep 01/07/25 01/07/25 History pravastatin 40 mg tablet 40 mg PO HS 01/07/25 01/07/25 History New Prescriptions to Start Prescriptions: Allergies Allergy/AdvReac Type Severity Reaction Status Date / Time No Allergy Information Allergy Verified 12/07/24 21:09 Available Discharge Plan Follow up Plan Prescriptions/Medication Reconciliation: No Action ammonium lactate 12 % lotion 1 applic topical BID Rx Instructions: MAY APPLY TWICE DAILY TO DRY SKIN ON FEET. tamsulosin [Flomax] 0.4 mg capsule 0.4 mg PO 1700 polyethylene glycol 3350 [Miralax] 17 gram/dose powder 17 g PO BID acetaminophen 500 mg capsule 500 mg PO Q6HP PRN (Reason: Pain (Scale Score 1-3)) finasteride [Proscar] 5 mg tablet 5 mg PO DAILY senna 8.6 mg capsule 17.2 mg PO HS risperidone 0.25 mg tablet,disintegrating 0.25 mg PO BID pravastatin 40 mg Tablet 40 mg PO HS melatonin 1 mg Tablet 1 mg PO HSP PRN (Reason: Sleep) Patient Discharge Instructions Print Language: Armenian Providers Primary Care Provider: Provider,Referral Admit Provider: Caio Mills Attending Provider: Caio Mills
--- NOTE | 2025-01-09 08:25 | SW/DCPLANNER ---
Addendum entered by Brittany Rosales 01/10/25 11:02: I updated Cynthia eugene/ Canelo Chowdhury that patient will return [facility] level of care today. Patient will return w/ PO antibiotics. Original Note: Patient currently resides at [facility] level of care. Updated patient information will be faxed to Cynthia eugene/ Canelo Chowdhury. Discharge date is unknown at this time. CM will continue to follow up.
--- NOTE | 2025-01-09 10:25 | PC.NURSE ---
Patients [facility] called to get up date on patient. Informed him that he is was doing well overall and was waiting for cardiology to see him after a echo that was ordered this morning. He asked for estimated discharge date-told him possibly today or tomorrow.
--- NOTE | 2025-01-09 11:42 | PC.NURSE ---
Called patients tracy to obtain consent for [facility], informed consent given by Bernice Alford, patient also states he agrees to the procedure. Bernice states patient currently has a new tracy, not who is listed on his chart. Nasim Denis is Tanya, phone number [phone].
--- NOTE | 2025-01-09 14:01 | EXP.CARD.CON ---
History of Present Illness History of Present Illness Consult date: 01/09/25 Requesting physician: Caio Mills Consult reason: hypotension Chief complaint: sepsis History of present illness: This is a 74-year-old gentleman who was admitted to the hospital with sepsis From an acute UTI. He has been treated for this over the weekend. He also had an elevated troponin consistent with a non-STEMI. On the day of admission the patient was hypotensive at the half-way and had bright red blood in his Manning bag after Manning exchange. He has known dementia. He states he has been having some shortness of breath intermittently especially with exertion. Improves with rest. He says he has no shortness of breath today. He denies any chest pain or pressure. No shortness of breath or edema. No fever, chills, nausea, vomiting or diarrhea. However on admission he was febrile and tachycardic. His sepsis has improved and he is still on antibiotics. [facility] Disclaimer: The information contained in this section may have been updated after the patient was seen, as this information can be updated by other users. Medical History (Updated 01/09/25 @ 14:06 by Alie Linton APRN) Non-STEMI (non-ST elevated myocardial infarction) Mood disorder BPH (benign prostatic hyperplasia) Urinary obstruction Hypothyroid Dementia CKD (chronic kidney disease) HTN (hypertension) HLD (hyperlipidemia) Social History (Updated 12/07/24 @ 21:18 by Omar Solis MD) Smoking Status: Never smoker alcohol intake: former current occupational status: retired Travel in the last 8 weeks?: None marital status: Have you lived/traveled outside [place] in past 30 days?: No Contact w/someone who lives/traveled outside US past 30 days?: No Exposure to someone with infectious disease in past 14 days?: No Do you have a fever (greater than 100.4 F or 38 C)?: No Have you tested positive for COVID-19?: No Exposed to someone with COVID-19 in past 14 days?: No Do you have a sore throat?: No Do you have a cough?: No Do you have any weakness?: No Do you have any diarrhea?: No Are you experiencing any unusual bleeding?: No Do you have any muscle aches/pain?: No Do you have any abdominal pain?: No Are you experiencing loss of taste or smell?: No Review of Systems Review of Systems Review of systems:: pertinent systems reviewed and negative unless documented below Constitutional Constitutional: Reports system reviewed and no additional complaints, except as documented and Reports fatigue Eyes Eyes: Reports system reviewed and no additional complaints, except as documented ENT Ears, Nose, Mouth, and Throat: Reports system reviewed and no additional complaints, except as documented *Cardiovascular Cardiovascular: Reports system reviewed and no additional complaints, except as documented and Reports dyspnea on exertion *Respiratory Respiratory: Reports system reviewed and no additional complaints, except as documented and Reports dyspnea on exertion *Gastrointestinal Gastrointestinal: Reports system reviewed and no additional complaints, except as documented *Genitourinary Genitourinary: Reports system reviewed and no additional complaints, except as documented and Reports hematuria *Musculoskeletal Musculoskeletal: Reports system reviewed and no additional complaints, except as documented Integumentary/Breasts Skin/Breast: Reports system reviewed and no additional complaints, except as documented *Neurologic Neurologic: Reports system reviewed and no additional complaints, except as documented Psychiatric Psychiatric: Reports system reviewed and no additional complaints, except as documented Endocrine Endocrine: Reports system reviewed and no additional complaints, except as documented and Reports fatigue Hematologic/Lymphatic Hematologic/Lymphatic: Reports system reviewed and no additional complaints, except as documented Allergic/Immunologic Allergic/Immunologic: Reports system reviewed and no additional complaints, except as documented Exam Data for Last 24 hours Vital signs and Labs for Last 24 Hours: Temp Pulse Resp BP Pulse Ox O2 Del Method O2 Flow Rate 99.5 F 88 19 120/68 98 Nasal Cannula 95 01/09/25 12:00 01/09/25 12:00 01/09/25 12:00 01/09/25 12:00 01/09/25 12:00 01/09/25 13:00 01/09/25 13:00 Laboratory Results - last 24 hr 01/06/25 17:29: Urine Color Yellow, Urine Appearance Sl cloudy, Urine pH 8.0, Ur Specific Ariel 1.025, Urine Protein 3+ A, Urine Glucose (UA) Negative, Urine Ketones Negative, Urine Blood 4+ A, Urine Nitrate Positive A, Urine Bilirubin 2+ A, Urine Urobilinogen 0.2, Ur Leukocyte Esterase 2+ A 01/09/25 05:34: WBC 12.1 H, RBC 3.09 L, Hgb 9.1 L, Hct 28.7 L, MCV 92.9, MCH 29.4, MCHC 31.7 L, RDW 15.3, Plt Count 172, MPV 8.8, Neut % (Auto) 82.6 H, Lymph % (Auto) 8.0 L, Atlantic % (Auto) 6.3, Eos % (Auto) 2.4, Baso % (Auto) 0.2, Neut # (Auto) 10.0 H, Lymph # (Auto) 1.0, Atlantic # (Auto) 0.8, Eos # (Auto) 0.3, Baso # (Auto) 0.0, Sodium 143, Potassium 4.6, Chloride 118 H, Carbon Dioxide 19 L, Anion Gap 10.6, BUN 27 H, Creatinine 1.90 H, Estimated Creat Clear 41, Estimated GFR 35 L, Est GFR ( Amer) 42 L, Glucose 82, Calcium 8.4, Magnesium 2.0, Total Bilirubin 0.3, AST 90 H, ALT 84 H, Alkaline Phosphatase 165 H, C-Reactive Protein 173.8 H, Total Protein 5.7 L, Albumin 2.8 L, Globulin 2.9, Albumin/Globulin Ratio 1.0 L I & O for Last 24 hours: Intake & Output 01/06/25 01/07/25 01/08/25 01/09/25 23:59 23:59 23:59 23:59 Intake Total 11.598 / 775.345 7480.457 / 4512.457 3727.032 / 3727.032 100 / 100 Output Total 975 / 1135 4510 / 4760 4250 / 4700 2450 / 2450 Balance -963.402 / -691.233 2.457 / -247.543 -522.968 / -972.968 -2350 / -2350 Weight 187 lb 1.6 oz 189 lb 9.6 oz 190 lb 6.4 oz 190 lb 11.2 oz Microbiology Reports for the Last 24 Hours: Microbiology 01/06/25 17:29 Urine,Clean Catch Urine Culture - Preliminary Gram Negative Rods 01/06/25 18:06 Blood Blood Culture - Preliminary Proteus mirabilis 01/06/25 18:00 Blood Blood Culture - Preliminary Proteus mirabilis Constitutional Constitutional: no acute distress and average body habitus *Routine HEENT Exam Head: Present normocephalic and atraumatic ENT: Present mucous membranes moist *Routine Neck Exam Neck: Present supple, full ROM and normal carotid upstroke; Absent JVD, carotid bruit or lymphadenopathy *Routine Respiratory Exam Respiratory: Present CTA bilaterally, normal respiratory effort, able to speak in complete sentences and symmetric chest movement *Routine Cardiovascular Exam Cardiovascular: Present RRR, Normal S1 and Normal S2; Absent murmur or gallop *Routine Abdominal Exam Abdominal: Present soft and normoactive bowel sounds; Absent tenderness, distended or organomegaly *Routine Extremities Exam Extremities: Present full ROM, pulses intact and normal capillary refill; Absent cyanosis, clubbing or edema *Routine Skin Exam Skin: Present intact and warm; Absent erythema *Routine Neurological Exam Neurological: Present alert, oriented X3 and CN II-XII intact; Absent sensory deficit or motor deficit Routine Psychiatric Exam Psychiatric: Present normal affect Meds Home Medications and Allergies Home Medications ?Medication ?Instructions ?Recorded ?Confirmed ?Type acetaminophen 500 mg capsule 500 mg PO Q6HP PRN Pain (Scale 12/06/24 01/07/25 History Score 1-3) ammonium lactate 12 % lotion 1 applic topical BID 12/06/24 01/07/25 History finasteride 5 mg tablet (Proscar) 5 mg PO DAILY 12/06/24 01/07/25 History polyethylene glycol 3350 17 17 g PO BID 12/06/24 01/07/25 History gram/dose oral powder (Miralax) risperidone 0.25 mg disintegrating 0.25 mg PO BID 12/06/24 01/07/25 History tablet sennosides 8.6 mg capsule (senna) 17.2 mg PO HS 12/06/24 01/07/25 History tamsulosin 0.4 mg capsule (Flomax) 0.4 mg PO 1700 12/06/24 01/07/25 History melatonin 1 mg tablet 1 mg PO HSP PRN Sleep 01/07/25 01/07/25 History pravastatin 40 mg tablet 40 mg PO HS 01/07/25 01/07/25 History New Prescriptions to Start Prescriptions: Allergies Allergy/AdvReac Type Severity Reaction Status Date / Time No Allergy Information Allergy Verified 12/07/24 21:09 Available Assessment and Plan *Assessment and plan (1) Non-STEMI (non-ST elevated myocardial infarction): Status: Acute Category: Medical Code(s): I21.4 - Non-ST elevation (NSTEMI) myocardial infarction (2) Septic shock: Status: Acute Category: Medical Code(s): A41.9 - Sepsis, unspecified organism; R65.21 - Severe sepsis with septic shock (3) CKD (chronic kidney disease): Status: Acute Qualifiers: Chronic kidney disease stage: unspecified stage Qualified Code(s): N18.9 - Chronic kidney disease, unspecified Category: Medical Code(s): N18.9 - Chronic kidney disease, unspecified (4) HTN (hypertension): Status: Acute Qualifiers: Hypertension type: primary hypertension Qualified Code(s): I10 - Essential (primary) hypertension Category: Medical Code(s): I10 - Essential (primary) hypertension (5) HLD (hyperlipidemia): Status: Acute Qualifiers: Hyperlipidemia type: mixed hyperlipidemia Qualified Code(s): E78.2 - Mixed hyperlipidemia Category: Medical Code(s): E78.5 - Hyperlipidemia, unspecified (6) Acute UTI: Status: Acute Category: Medical Code(s): N39.0 - Urinary tract infection, site not specified Plan Plan: 1. The patient was admitted to the hospital due to an acute UTI and sepsis. He is getting antibiotics. Will defer to the hospitalist. 2. The patient did have an elevated troponin consistent with a non-STEMI. He will undergo left cardiac catheterization today to evaluate for coronary artery disease due to his non-STEMI and atypical angina. 3. The patient's manage again the risks and benefits of proceeding with left cardiac catheterization. The patient verbalized understanding and is agreeable in proceeding with the procedure. 4. The patient will be n.p.o. preparation for left cardiac catheterization. 5. The patient does have chronic kidney disease. His creatinine is stable at 1.9. 6. His blood pressure is well-controlled. 7. His LDL goal is less than 55. His LDL is 96. Will start him on Lipitor 80 mg p.o. nightly due to his non-STEMI. 8. Echocardiogram is currently pending. 9. Start aspirin 81 mg daily due to his non-STEMI. 10. Will start him on a beta-jania once we know his ejection fraction, to rule out cardiogenic shock. 11. Further recommendations will be made pending the patient's response to treatment and the results of his left cardiac catheterization and echocardiogram today. Thank you for the opportunity to participate in the care of this patient. Our recommendations and orders are per Dr. Gonzalez.
--- NOTE | 2025-01-09 14:42 | IR_ITS ---
APPROVED REPORT Patient Location: Inpatient PROCEDURES Left heart catheterization Selective coronary angiogram Drug-eluting stent deployment to the ostial proximal LAD INDICATION Acute non-ST elevation myocardial infarction, Coronary artery disease, Informed consent was obtained prior to the procedure. COMPLICATIONS None Estimated Blood Loss: Less than 10 ML TECHNIQUE One percent lidocaine used to anesthetize the right anterior aspect of the wrist. The right radial artery was accessed via the Seldinger technique. A 6 Vietnamese sheath was placed in the right radial artery. 2.5 mg of Verapamil, 800 mcg of nitroglycerin, 1mg Lidocaine and 5000 U Heparin were given through the arterial sheath. The JL3 catheter was also used to perform selective coronary angiogram. At the end the diagnostic angiogram therapeutic Was administered giving a therapeutic ACT guide catheters placed in left main artery followed by Choice PT extra-support wire. A 3 mm x 15 mm Floyd frontier stent was deployed at 20 chichi in the ostial proximal LAD reducing the severe stenosis to 0%. YULY III flow was present before and after the procedure. Within the procedure the apparatus was removed the sheath was removed good hemostasis was achieved using TR banding patient was transferred to the postop boarding in stable condition ANGIOGRAPHIC RESULTS The left main artery Normal The left anterior descending artery Has an ostial concentric 80% stenosis followed by mid vessel 50% stenosis which involves a large first diagonal artery with a 40% stenosis The circumflex artery Large dominant with mild diffuse 10% luminal regularities The right coronary artery Nondominant with proximal 50% and distal 50% concentric stenosis The MORTON ventriculogram reveals Not performed The left ventricular end-diastolic pressure Not measured IMPRESSION Severe ostial proximal LAD disease as described above Successful stent to the ostial proximal LAD severe disease reduced to 0% with 1 drug-eluting stent Persistent moderate stenoses in the mid LAD as described above Persistent moderate stenosis in the proximal and distal nondominant right coronary PLAN 1. Plavix and aspirin 2. LDL less than 55 to be achieved with high intensity statin 3. Avoidance of tobacco products 4. Risk factor modification 5. Cardiac rehabilitation 6. Official echocardiogram to evaluate ejection fraction Electronically signed by : Arnulfo Chavarria MD 01/09/2025 17:39:30
[2025-01-09] MEDS: HEPARIN 1,000 UNITS/500ML NS (CATH LAB) 3000 UNIT IV (17:15)
[2025-01-09] MEDS: VERAPAMIL 2.5MG/ML 2ML VIAL 2.5 MG IV (17:16)
[2025-01-09] MEDS: LIDOCAINE 1% 10ML MDV 10 ML IJ (17:16)
[2025-01-09] MEDS: HEPARIN 1,000 UNITS/ML 10ML VIAL (CATH LAB) 5000 UNIT IV (17:16)
[2025-01-09] MEDS: NITROGLYCERIN 800MCG/8ML SYR (CATH LAB) 800 MCG IA (17:16)
[2025-01-09] MEDS: FENTANYL 100MCG/2ML VIAL 50 MCG IV (17:17)
[2025-01-09] MEDS: 0.9 % SODIUM CHLORIDE 500 ML 25 ML IV (17:17)
[2025-01-09] MEDS: MIDAZOLAM HCL 1MG/ML 5ML VIAL 1 MG IV (17:17)
[2025-01-09] MEDS: IOPAMIDOL-370 (76%);100ML BOTTLE 40 ML IV (17:48)
[2025-01-09 18:02] LABS: CATHL Activated Clotting Time 343 SEC (74-125)
--- NOTE | 2025-01-09 18:39 | PC.NURSE ---
Patient A&Ox 3, lung sounds clear, vitals stable, saline locked at this time. F/C in place. Patient went to cathlab around 1700 and got one stent to the LAD, back to room around 1800 on post cath vitals at this time. First air removal is at 1910.
[2025-01-09 20:22] LABS: Cholesterol 125 mg/dl (140-200); HDL Cholesterol 30 mg/dl (40-60); Triglycerides 131 mg/dl (30-150)
[2025-01-09] MEDS: ATORVASTATIN 40MG TABLET 80 MG PO (20:23)
[2025-01-09] MEDS: FINASTERIDE 5MG TABLET 5 MG PO (20:24)
[2025-01-09] MEDS: TAMSULOSIN 0.4MG CAPSULE 0.4 MG PO (20:24)
[2025-01-09] MEDS: PANTOPRAZOLE 40MG TABLET 40 MG PO (20:24)
[2025-01-09 20:51] LABS: Procalcitonin 58.2 ng/mL (0.0-2.0)
[2025-01-09 20:53] LABS: Thyroid Stimulating Hormone 5.60 uIU/mL (0.465-4.68)
--- NOTE | 2025-01-09 23:33 | P.PN_ITS ---
Subjective *Date: 01/09/25 *Time: 23:33 Interval history: Patient feels well, no acute complaints this morning. Tolerated [facility] well. ECHO report came in later, Will discharge to [facility] in the morning. Exam Data for Last 24 hours Vital signs and Labs for Last 24 Hours: Temp Pulse Resp BP Pulse Ox O2 Del Method O2 Flow Rate 99.5 F 82 21 124/61 94 L Room Air 2 01/09/25 12:00 01/09/25 21:00 01/09/25 21:00 01/09/25 21:00 01/09/25 21:00 01/09/25 22:01 01/09/25 15:56 Laboratory Results - last 24 hr 01/06/25 17:29: Urine Color Yellow, Urine Appearance Sl cloudy, Urine pH 8.0, Ur Specific [place] 1.025, Urine Protein 3+ A, Urine Glucose (UA) Negative, Urine Ketones Negative, Urine Blood 4+ A, Urine Nitrate Positive A, Urine Bilirubin 2+ A, Urine Urobilinogen 0.2, Ur Leukocyte Esterase 2+ A 01/09/25 05:34: WBC 12.1 H, RBC 3.09 L, Hgb 9.1 L, Hct 28.7 L, MCV 92.9, MCH 29.4, MCHC 31.7 L, RDW 15.3, Plt Count 172, MPV 8.8, Neut % (Auto) 82.6 H, Lymph % (Auto) 8.0 L, [place] % (Auto) 6.3, Eos % (Auto) 2.4, Baso % (Auto) 0.2, Neut # (Auto) 10.0 H, Lymph # (Auto) 1.0, [place] # (Auto) 0.8, Eos # (Auto) 0.3, Baso # (Auto) 0.0, Sodium 143, Potassium 4.6, Chloride 118 H, Carbon Dioxide 19 L, Anion Gap 10.6, BUN 27 H, Creatinine 1.90 H, Estimated Creat Clear 41, Estimated GFR 35 L, Est GFR ( Amer) 42 L, Glucose 82, Calcium 8.4, Magnesium 2.0, Total Bilirubin 0.3, AST 90 H, ALT 84 H, Alkaline Phosphatase 165 H, C-Reactive Protein 173.8 H, Total Protein 5.7 L, Albumin 2.8 L, Globulin 2.9, Alb umin/Globulin Ratio 1.0 L, Triglycerides 131, Cholesterol 125 L, LDL Cholesterol Direct 73.44 L, VLDL Cholesterol 26, HDL Cholesterol 30 L, Cholesterol/HDL Ratio 4.2 H, Procalcitonin 58.2 H, TSH 5.60 H 01/09/25 17:26: Activated Clotting Time 343 H* I & O for Last 24 hours: Intake & Output 01/06/25 01/07/25 01/08/25 01/09/25 23:59 23:59 23:59 23:59 Intake Total 11.598 / 153.915 4702.457 / 4512.457 3727.032 / 3727.032 320 / 320 Output Total 975 / 1135 4510 / 4760 4250 / 4700 3550 / 3550 Balance -963.402 / -691.233 2.457 / -247.543 -522.968 / -972.968 -3230 / -3230 Weight 84.867 kg 86.001 kg 86.364 kg 86.5 kg Microbiology Reports for the Last 24 Hours: Microbiology 01/06/25 17:29 Urine,Clean Catch Urine Culture - Preliminary Gram Negative Rods 01/06/25 18:06 Blood Blood Culture - Preliminary Proteus mirabilis 01/06/25 18:00 Blood Blood Culture - Preliminary Proteus mirabilis Constitutional Constitutional: no acute distress *Routine HEENT Exam Head: Present normocephalic Eye: Present EOMI and PERRL ENT: Present mucous membranes moist *Routine Neck Exam Neck: Present supple; Absent lymphadenopathy *Routine Respiratory Exam Respiratory: Present CTA bilaterally *Routine Cardiovascular Exam Cardiovascular: Present RRR *Routine Abdominal Exam Abdominal: Present soft and normoactive bowel sounds; Absent tenderness *Routine Extremities Exam Extremities: Absent cyanosis, clubbing or edema *Routine Skin Exam Skin: Present warm; Absent rash *Routine Neurological Exam Neurological: Present alert and oriented X3 Assessment and Plan *Assessment and plan (1) Non-STEMI (non-ST elevated myocardial infarction): Status: Acute Category: Medical Code(s): I21.4 - Non-ST elevation (NSTEMI) myocardial infarction (2) Obstructive uropathy: Status: Acute Category: Medical Code(s): N13.9 - Obstructive and reflux uropathy, unspecified (3) Acute UTI: Status: Acute Category: Medical Code(s): N39.0 - Urinary tract infection, site not specified Plan Gerard Ignacio is a 74-year-old male that presents to [facility] emergency department from [facility] for fever, tachycardia and low blood pressures and admitted for septic shock secondary to UTI. Hospital course complicated by NSTEMI. #Septic shock, resolved #UTI #Proteus bacteremia #Chronic indwelling Manning #Obstructive uropathy ? Clinically improving with Levophed (weaned off), broad-spectrum antibiotics. ? Urine culture growing gram-negative rods, blood culture showing Proteus mirabilis sensitive to ceftriaxone, transitioned off meropenem. ? Continue IV ceftriaxone 2 g daily. ? Continue tamsulosin 0.4 mg, finasteride 5 mg nightly. ? Continue chronic Manning, has been changed during admission. ? Will need referral to urology for further evaluation of bladder outlet obstruction. #NSTEMI type I #CAD ? Troponins peaked 2.83, EKG without acute ischemic changes. ? Cardiology consulted, s/p PCI 01/09/2025 with 1 stent to LAD. Patient tolerated procedure well. ? Aspirin 81 mg, Plavix 75 mg, atorvastatin 80 mg. ? LDL 73, TSH 5.60, follow-up free T4 and A1c. ? Echo report pending, can discharge after this if unremarkable. Full code DVT prophylaxis: Lovenox 40 mg
[2025-01-10] VITALS (19 sets, daily range): BP systolic 114–150; BP diastolic 59–89; PULSE 75–94; RESP 13–27; TEMP 36.8–37.3; O2SAT 89–96; BMI 29.1
[2025-01-10 00:16] LABS: Hemoglobin A1C 5.6 % (4.0-6.0)
[2025-01-10 01:47] LABS: Free T4 (Free Thyroxine) 1.40 ng/dl (0.78-2.19)
--- NOTE | 2025-01-10 05:17 | PC.NURSE ---
TR band removed on right radial cath site at 2300 last night. No bleeding at the site no pain per patient. tegaderm applied to area, vitals stable.
[2025-01-10 05:52] LABS: Hematocrit 27.7 % (42.0-52.0); Hemoglobin 9.0 g/dL (14.1-18.0); Immature Granulocytes % 0.5 %; Mean Corpuscular HGB Conc 32.5 g/dL (31.8-35.4); Mean Corpuscular Hemoglobin 30.0 pg (27.0-31.2); Mean Corpuscular Volume 92.3 fl (80-94); Nucleated Red Blood Cells % 0 %; Platelet Count 188 K/mm3 (142-424); Red Blood Count 3.00 M/mm3 (4.60-6.20); Red Cell Distribution Width-SD 51.8 fL; White Blood Count 8.5 K/mm3 (4.8-10.8)
[2025-01-10 05:59] LABS: Albumin Level 2.8 g/dl (3.5-5.0); Chloride 116 mmol/L (98-107); Sodium 142 mmol/L (136-145)
[2025-01-10 06:00] LABS: Potassium 4.3 mmoL/L (3.5-5.1)
[2025-01-10 06:02] LABS: Alanine Aminotransferase 80 U/L (12-78); Albumin/Globulin Ratio 1.0 (1.1-1.8); Alkaline Phosphatase 204 U/L (38-126); Anion Gap 9.3 mEq/L (5-15); Aspartate Amino Transferase 79 U/L (17-59); Bilirubin,Total 0.3 mg/dl (0.2-1.3); Blood Urea Nitrogen 26 mg/dl (9-20); Carbon Dioxide 21 mmol/L (22.0-30.0); Creatinine Clearance Estimated 39 mL/min (50-200); Creatinine,Serum 2.00 mg/dl (0.66-1.25); Estimated Glomerular Filt Rate 33 ml/min (>60); GFR (African American) 40 ML/MIN (>60); Globulin 2.8 g/dL (1.3-3.2); Total Protein,Serum 5.6 g/dl (6.3-8.2)
[2025-01-10 06:03] LABS: Calcium 8.6 mg/dl (8.4-10.2); Glucose 125 mg/dl (74-100); Magnesium 2.1 mg/dl (1.6-2.3)
[2025-01-10 06:08] LABS: C-Reactive Protein 109.6 mg/L (0-4)
[2025-01-10 07:27] LABS: Procalcitonin 31.2 ng/mL (0.0-2.0)
[2025-01-10] MEDS: ASPIRIN EC 81MG TABLET 81 MG PO (08:06)
[2025-01-10] MEDS: DOCUSATE SODIUM 100 MG CAPSULE PO (08:06)
[2025-01-10] MEDS: CLOPIDOGREL 75MG TAB 75 MG PO (08:06)
--- NOTE | 2025-01-10 09:09 | EXP.DC.SUM ---
General Admission date:: 01/06/25 Discharge date: 01/10/25 HPI HPI HPI: This is a 74-year-old male that presents to [facility] emergency department from [facility] for fever, tachycardia and low blood pressures. He has a chronic indwelling Manning catheter with recognized attempts at removing it at the long term [facility] with concerns of urethral trauma. He was sent to the ED for evaluation. Currently the patient reports no pelvic pain, gross hematuria, flank pain, confusion, fever or chills. He denies nausea, vomiting or diarrhea. In the ED he was febrile with a temperature 100.6, tachycardic and blood pressure 80/40. His laboratory studies identified a leukocytosis and elevated lactic acid. His urine was abnormal. He received IV fluid resuscitation with repeat lactic acid pending. He received IV antibiotic therapy and required IV pressor support to maintain appropriate blood pressures. Hospital medicine was asked to admit the patient for his presenting septic shock. Hospital Course Hospital Course Hospital Course: Gerard Ignacio is a 74-year-old male that presents to [facility] emergency department from [facility] for fever, tachycardia and low blood pressures and admitted for septic shock secondary to UTI. Hospital course complicated by NSTEMI. Blood and urine cultures returned positive for 2 different pathogens. On appropriate antibiotics at this time. Given his improvement in symptoms, stable to discharge back to his [facility] for continued treatment. Problems addressed as follows: #Septic shock, ruled down, resolving #UTI secondary to E. coli from long-term indwelling catheter, present on admission #Proteus bacteremia, present on admission #Chronic indwelling Manning #Obstructive uropathy ? Patient met septic shock criteria with white count of 39.2, lactate of 3.4, heart rate of 132, respiratory rate 23-28. Endorgan damage with troponin detectable at 1.6. Blood pressures as low as 79/40 even after fluid resuscitation. Patient was initially on norepinephrine due to hypotension. Able to wean off as blood pressure stabilized. CRP severely elevated at 174 on admission, improved to 109 by day of discharge. Procalcitonin also elevated at 115, improved to 31 showing good response to antibiotics. Proteus and E. coli both sensitive to Levaquin. Will renally dose and complete 14 days total as patient has long-term indwelling catheter in conjunction with bacteremia. Has been on IV antibiotics including cefepime and meropenem and ceftriaxone for at least 4 days during admission. Will continue levofloxacin 750 mg every other day for 10 more days. First dose due morning of 01/11/2025. White count is normalized 8.5 by morning of discharge. Stable on room air. Overall doing better. Continues tamsulosin 0.4 mg nightly and finasteride 5 mg nightly. Has chronic Manning in place. Will need follow-up with urology to evaluate potential removal as an outpatient. Strong concern the long-term indwelling Manning is his risk factor for infection and bacteremia. #NSTEMI type I #CAD ? Troponins peaked 2.83, EKG without acute ischemic changes. Cardiology consulted, s/p PCI 01/09/2025 with 1 stent to LAD. Patient tolerated procedure well. Plan to continue aspirin 81 mg, Plavix 75 mg, atorvastatin 80 mg. LDL 73, TSH 5.60. Echo showing EF of 55%. Stable to discharge with close outpatient follow-up Total time spent on discharge 32 minutes in counseling, documentation, chart review, and direct care with patient. Exam Data for Last 24 hours Vital signs and Labs for Last 24 Hours: Temp Pulse Resp BP Pulse Ox O2 Del Method O2 Flow Rate 98.2 F 79 13 134/73 95 Room Air 2 01/10/25 08:00 01/10/25 08:00 01/10/25 08:00 01/10/25 08:00 01/10/25 08:00 01/10/25 08:59 01/09/25 15:56 Laboratory Results - last 24 hr 01/06/25 17:29: Urine Color Yellow, Urine Appearance Sl cloudy, Urine pH 8.0, Ur Specific [place] 1.025, Urine Protein 3+ A, Urine Glucose (UA) Negative, Urine Ketones Negative, Urine Blood 4+ A, Urine Nitrate Positive A, Urine Bilirubin 2+ A, Urine Urobilinogen 0.2, Ur Leukocyte Esterase 2+ A 01/09/25 05:34: Hemoglobin A1c 5.6, Triglycerides 131, Cholesterol 125 L, LDL Cholesterol Direct 73.44 L, VLDL Cholesterol 26, HDL Cholesterol 30 L, Cholesterol/HDL Ratio 4.2 H, Procalcitonin 58.2 H, TSH 5.60 H 01/09/25 17:26: Activated Clotting Time 343 H* 01/10/25 00:01: Free T4 1.40 01/10/25 04:56: WBC 8.5 D, RBC 3.00 L, Hgb 9.0 L, Hct 27.7 L, MCV 92.3, MCH 30.0, MCHC 32.5, RDW 15.4, Plt Count 188, MPV 8.9, Neut % (Auto) 75.7, Lymph % (Auto) 11.3, [place] % (Auto) 8.6, Eos % (Auto) 3.8, Baso % (Auto) 0.1, Neut # (Auto) 6.4, Lymph # (Auto) 1.0, [place] # (Auto) 0.7, Eos # (Auto) 0.3, Baso # (Auto) 0.0, Sodium 142, Potassium 4.3, Chloride 116 H, Carbon Dioxide 21 L, Anion Gap 9.3, BUN 26 H, Creatinine 2.00 H, Estimated Creat Clear 39, Estimated GFR 33 L, Est GFR ( Amer) 40 L, Glucose 125 H D, Calcium 8.6, Magnesium 2.1, Total Bilirubin 0.3, AST 79 H, ALT 80 H, Alkaline Phosphatase 204 H, C-Reactive Protein 109.6 H, Total Protein 5.6 L, Albumin 2.8 L, Globulin 2.8, Albumin/Globulin Ratio 1.0 L, Procalcitonin 31.2 H I & O for Last 24 hours: Intake & Output 01/07/25 01/08/25 01/09/25 01/10/25 23:59 23:59 23:59 23:59 Intake Total 4512.457 / 4512.457 3727.032 / 3727.032 320 / 720 489 / 489 Output Total 4510 / 4760 4250 / 4700 3550 / 4200 2029 / 2029 Balance 2.457 / -247.543 -522.968 / -972.968 -3230 / -3480 -1541 / -1541 Weight 86.001 kg 86.364 kg 86.5 kg 87.2 kg Microbiology Reports for the Last 24 Hours: Microbiology 01/06/25 17:29 Urine,Clean Catch Urine Culture - Final Escherichia coli 01/08/25 00:56 Blood Blood Culture - Preliminary NO GROWTH AFTER 24 HOURS 01/08/25 00:56 Blood Blood Culture - Preliminary NO GROWTH AFTER 24 HOURS 01/06/25 18:06 Blood Blood Culture - Preliminary Proteus mirabilis 01/06/25 18:00 Blood Blood Culture - Preliminary Proteus mirabilis Constitutional Constitutional: no acute distress, average body habitus, chronically ill appearing and cooperative *Routine HEENT Exam Head: Present normocephalic and atraumatic Eye: Present EOMI ENT: Present mucous membranes moist *Routine Neck Exam Neck: Present supple Routine Chest/Breast/Axilla Exam Chest wall: Absent tenderness *Routine Respiratory Exam Respiratory: Present CTA bilaterally; Absent accessory muscle use, respiratory distress, stridor or wheezes *Routine Cardiovascular Exam Cardiovascular: Present RRR *Routine Abdominal Exam Abdominal: Present soft *Routine Rectal Exam Patient deferred: visual exam *Routine Exam Patient deferred: penile exam (Indwelling catheter in place) *Routine Extremities Exam Extremities: Absent cyanosis, clubbing or edema *Routine Skin Exam Skin: Present intact; Absent cyanosis *Routine Neurological Exam Neurological: Present alert, oriented X3 and moving all extremities; Absent altered mental status Routine Psychiatric Exam Psychiatric: Present normal affect Results Data Completed and Pending Labs on day of discharge: Labs from last 24 hours 01/10/25 01/10/25 01/09/25 04:56 00:01 17:26 WBC 8.5 D RBC 3.00 L Hgb 9.0 L Hct 27.7 L MCV 92.3 MCH 30.0 MCHC 32.5 RDW 15.4 Plt Count 188 MPV 8.9 Neut % (Auto) 75.7 Lymph % (Auto) 11.3 [place] % (Auto) 8.6 Eos % (Auto) 3.8 Baso % (Auto) 0.1 Neut # (Auto) 6.4 Lymph # (Auto) 1.0 [place] # (Auto) 0.7 Eos # (Auto) 0.3 Baso # (Auto) 0.0 Activated Clotting Time 343 H* Sodium 142 Potassium 4.3 Chloride 116 H Carbon Dioxide 21 L Anion Gap 9.3 BUN 26 H Creatinine 2.00 H Estimated Creat Clear 39 Estimated GFR 33 L Est GFR ( Amer) 40 L Glucose 125 H D Hemoglobin A1c Calcium 8.6 Magnesium 2.1 Total Bilirubin 0.3 AST 79 H ALT 80 H Alkaline Phosphatase 204 H C-Reactive Protein 109.6 H Total Protein 5.6 L Albumin 2.8 L Globulin 2.8 Albumin/Globulin Ratio 1.0 L Triglycerides Cholesterol LDL Cholesterol Direct VLDL Cholesterol HDL Cholesterol Cholesterol/HDL Ratio Procalcitonin 31.2 H TSH Free T4 1.40 Urine Color Urine Appearance Urine pH Ur Specific [place] Urine Protein Urine Glucose (UA) Urine Ketones Urine Blood Urine Nitrate Urine Bilirubin Urine Urobilinogen Ur Leukocyte Esterase 01/09/25 01/06/25 05:34 17:29 WBC RBC Hgb Hct MCV MCH MCHC RDW Plt Count MPV Neut % (Auto) Lymph % (Auto) [place] % (Auto) Eos % (Auto) Baso % (Auto) Neut # (Auto) Lymph # (Auto) [place] # (Auto) Eos # (Auto) Baso # (Auto) Activated Clotting Time Sodium Potassium Chloride Carbon Dioxide Anion Gap BUN Creatinine Estimated Creat Clear Estimated GFR Est GFR ( Amer) Glucose Hemoglobin A1c 5.6 Calcium Magnesium Total Bilirubin AST ALT Alkaline Phosphatase C-Reactive Protein Total Protein Albumin Globulin Albumin/Globulin Ratio Triglycerides 131 Cholesterol 125 L LDL Cholesterol Direct 73.44 L VLDL Cholesterol 26 HDL Cholesterol 30 L Cholesterol/HDL Ratio 4.2 H Procalcitonin 58.2 H TSH 5.60 H Free T4 Urine Color Yellow Urine Appearance Sl cloudy Urine pH 8.0 Ur Specific [place] 1.025 Urine Protein 3+ A Urine Glucose (UA) Negative Urine Ketones Negative Urine Blood 4+ A Urine Nitrate Positive A Urine Bilirubin 2+ A Urine Urobilinogen 0.2 Ur Leukocyte Esterase 2+ A Preliminary micro results at discharge 01/08/25 00:56 Blood Culture - Preliminary Blood NO GROWTH AFTER 24 HOURS 01/08/25 00:56 Blood Culture - Preliminary Blood NO GROWTH AFTER 24 HOURS 01/06/25 18:06 Blood Culture - Preliminary Blood Proteus mirabilis 01/06/25 18:00 Blood Culture - Preliminary Blood Proteus mirabilis DS: Diagnosis Discharge Diagnosis (1) Non-STEMI (non-ST elevated myocardial infarction): Status: Acute Code(s): I21.4 - Non-ST elevation (NSTEMI) myocardial infarction (2) Obstructive uropathy: Status: Acute Code(s): N13.9 - Obstructive and reflux uropathy, unspecified (3) Acute UTI: Status: Acute Code(s): N39.0 - Urinary tract infection, site not specified (4) Bacteremia due to Proteus species: Status: Acute Code(s): R78.81 - Bacteremia; B96.4 - Proteus (mirabilis) (morganii) as the cause of diseases classified elsewhere (5) E. coli UTI: Status: Acute Code(s): N39.0 - Urinary tract infection, site not specified; B96.20 - Unspecified Escherichia coli [E. coli] as the cause of diseases classified elsewhere Problem details: Associated with long-term indwelling catheter, present on admission Meds Home Medications and Allergies Home Medications ?Medication ?Instructions ?Recorded ?Confirmed ?Type acetaminophen 500 mg capsule 500 mg PO Q6HP PRN Pain (Scale 12/06/24 01/07/25 History Score 1-3) ammonium lactate 12 % lotion 1 applic topical BID 12/06/24 01/07/25 History finasteride 5 mg tablet (Proscar) 5 mg PO DAILY 12/06/24 01/07/25 History polyethylene glycol 3350 17 17 g PO BID 12/06/24 01/07/25 History gram/dose oral powder (Miralax) risperidone 0.25 mg disintegrating 0.25 mg PO BID 12/06/24 01/07/25 History tablet sennosides 8.6 mg capsule (senna) 17.2 mg PO HS 12/06/24 01/07/25 History tamsulosin 0.4 mg capsule (Flomax) 0.4 mg PO 1700 12/06/24 01/07/25 History melatonin 1 mg tablet 1 mg PO HSP PRN Sleep 01/07/25 01/07/25 History aspirin 81 mg tablet,delayed 81 mg PO DAILY 30 days #30 tabs 01/10/25 Rx release atorvastatin 40 mg tablet 80 mg (2 x 40 mg) PO HS 30 days 01/10/25 Rx #60 tabs clopidogrel 75 mg tablet 75 mg PO DAILY 30 days #30 tabs 01/10/25 Rx levofloxacin 750 mg tablet 750 mg PO Q48H 10 days #5 tabs 01/10/25 Rx pantoprazole 40 mg tablet,delayed 40 mg PO HS 30 days #30 tabs 01/10/25 Rx release New Prescriptions to Start Prescriptions: aspirin Dhruv,William atorvastatin Dhruv,William clopidogrel Dhruv,William levofloxacin Dhruv,William pantoprazole William Bartlett Allergies Allergy/AdvReac Type Severity Reaction Status Date / Time No Allergy Information Allergy Verified 12/07/24 21:09 Available Discharge Plan Disposition Patient Disposition: Xfer Intermediate Care Fac Condition: Fair Discharge Order Discharge Orders: Discharge Order (Routine); Ordered 01/10/25 Ordered By: William Bartlett Follow up Plan Follow up with: Arnulfo Chavarria MD [Staff Physician, Cardiology] Prescriptions/Medication Reconciliation: New atorvastatin 40 mg Tablet 80 mg PO HS 30 Days Qty: 60 0RF clopidogrel 75 mg Tablet 75 mg PO DAILY 30 Days Qty: 30 0RF aspirin 81 mg Tablet,Delayed Release (Dr/Ec) 81 mg PO DAILY 30 Days Qty: 30 0RF pantoprazole 40 mg Tablet,Delayed Release (Dr/Ec) 40 mg PO HS 30 Days Qty: 30 0RF levofloxacin 750 mg tablet 750 mg PO Q48H 10 Days Qty: 5 0RF Rx Instructions: first dose 01/11/25 Continued ammonium lactate 12 % lotion 1 applic topical BID Rx Instructions: MAY APPLY TWICE DAILY TO DRY SKIN ON FEET. tamsulosin [Flomax] 0.4 mg capsule 0.4 mg PO 1700 polyethylene glycol 3350 [Miralax] 17 gram/dose powder 17 g PO BID acetaminophen 500 mg capsule 500 mg PO Q6HP PRN (Reason: Pain (Scale Score 1-3)) finasteride [Proscar] 5 mg tablet 5 mg PO DAILY senna 8.6 mg capsule 17.2 mg PO HS risperidone 0.25 mg tablet,disintegrating 0.25 mg PO BID melatonin 1 mg Tablet 1 mg PO HSP PRN (Reason: Sleep) Discontinued pravastatin 40 mg Tablet 40 mg PO HS Problem Reconciliation Problems Reviewed?: Yes Patient Discharge Instructions ACTIVITY: Continue current activity DIET: continue same diet Patient Instructions: Cardiac Catheterization, Moderate Sedation Print Language: Hungarian Providers Primary Care Provider: Provider,Referral Admit Provider: Caio Mills Attending Provider: Caio Mills
[2025-01-10] MEDS: METOPROLOL SUCCINATE XL 25MG TABLET 25 MG PO (10:36)
--- NOTE | 2025-01-10 11:45 | PC.NURSE ---
Per Alie Linton, Patient may have one cup of coffee and a small snack. Primary RN gave patient one bag of chips and one cup of coffee at this time. Continuation of care plan.
--- NOTE | 2025-01-10 11:46 | PC.NURSE ---
Per Alie Linton, Patient may have one cup of coffee and a small snack. Primary RN gave patient one glass of coffee. Patient refused snack at this time. Continuation of care plan.
--- NOTE | 2025-01-10 12:59 | P.PN_ITS ---
Subjective Subjective Date: 01/10/25 Time: 11:30 Principal diagnosis: Non-STEMI Interval history: This is a 74-year-old gentleman who was admitted to the hospital with sepsis from a UTI. He was also found to have a non-STEMI. He underwent left cardiac catheterization yesterday and had stenting to his LAD with 1 drug-eluting stent. He had persistent disease to his LAD and right coronary artery. The patient will be on Plavix and aspirin for dual antiplatelet therapy. This morning he denies any chest pain or pressure. He denies any shortness of breath or edema. He denies any fever, chills, nausea, vomiting, diarrhea, PND orthopnea. Exam Data for Last 24 hours Vital signs and Labs for Last 24 Hours: Temp Pulse Resp BP Pulse Ox O2 Del Method O2 Flow Rate 98.2 F 88 13 134/73 95 Room Air 2 01/10/25 08:00 01/10/25 11:51 01/10/25 08:00 01/10/25 08:00 01/10/25 08:00 01/10/25 10:46 01/09/25 15:56 Laboratory Results - last 24 hr 01/09/25 05:34: Hemoglobin A1c 5.6, Triglycerides 131, Cholesterol 125 L, LDL Cholesterol Direct 73.44 L, VLDL Cholesterol 26, HDL Cholesterol 30 L, Cholesterol/HDL Ratio 4.2 H, Procalcitonin 58.2 H, TSH 5.60 H 01/09/25 17:26: Activated Clotting Time 343 H* 01/10/25 00:01: Free T4 1.40 01/10/25 04:56: WBC 8.5 D, RBC 3.00 L, Hgb 9.0 L, Hct 27.7 L, MCV 92.3, MCH 30.0, MCHC 32.5, RDW 15.4, Plt Count 188, MPV 8.9, Neut % (Auto) 75.7, Lymph % (Auto) 11.3, [place] % (Auto) 8.6, Eos % (Auto) 3.8, Baso % (Auto) 0.1, Neut # (Auto) 6.4, Lymph # (Auto) 1.0, [place] # (Auto) 0.7, Eos # (Auto) 0.3, Baso # (Aut o) 0.0, Sodium 142, Potassium 4.3, Chloride 116 H, Carbon Dioxide 21 L, Anion Gap 9.3, BUN 26 H, Creatinine 2.00 H, Estimated Creat Clear 39, Estimated GFR 33 L, Est GFR ( Amer) 40 L, Glucose 125 H D, Calcium 8.6, Magnesium 2.1, Tot al Bilirubin 0.3, AST 79 H, ALT 80 H, Alkaline Phosphatase 204 H, C-Reactive Protein 109.6 H, Total Protein 5.6 L, Albumin 2.8 L, Globulin 2.8, Albumin/Globulin Ratio 1.0 L, Procalcitonin 31.2 H I & O for Last 24 hours: Intake & Output 01/07/25 01/08/25 01/09/25 01/10/25 23:59 23:59 23:59 23:59 Intake Total 4512.457 / 4512.457 3727.032 / 3727.032 320 / 720 489 / 489 Output Total 4510 / 4760 4250 / 4700 3550 / 4200 2355 / 2355 Balance 2.457 / -247.543 -522.968 / -972.968 -3230 / -3480 -1866 / -1866 Weight 189 lb 9.6 oz 190 lb 6.4 oz 190 lb 11.2 oz 192 lb 3.889 oz Microbiology Reports for the Last 24 Hours: Microbiology 01/06/25 17:29 Urine,Clean Catch Urine Culture - Final Escherichia coli 01/08/25 00:56 Blood Blood Culture - Preliminary NO GROWTH AFTER 24 HOURS 01/08/25 00:56 Blood Blood Culture - Preliminary NO GROWTH AFTER 24 HOURS Narrative: Echocardiogram shows: Normal biventricular systolic function. Borderline RV dilation. Mild biatrial dilation. Mild MR, mild TR. Color Doppler demonstrates presence of left to right interatrial shunt. In the setting of normal RV size/function and age > 65 years, no further evaluation for interatrial shunt is generally recommended. Clinical correlation is required. Constitutional Constitutional: no acute distress and average body habitus *Routine HEENT Exam Head: Present normocephalic and atraumatic ENT: Present mucous membranes moist *Routine Neck Exam Neck: Present supple, full ROM and normal carotid upstroke; Absent JVD, carotid bruit or lymphadenopathy *Routine Respiratory Exam Respiratory: Present CTA bilaterally, normal respiratory effort, able to speak in complete sentences and symmetric chest movement *Routine Cardiovascular Exam Cardiovascular: Present RRR, Normal S1 and Normal S2; Absent murmur or gallop *Routine Abdominal Exam Abdominal: Present soft and normoactive bowel sounds; Absent tenderness, distended or organomegaly *Routine Extremities Exam Extremities: Present full ROM, pulses intact and normal capillary refill; Absent cyanosis, clubbing or edema *Routine Skin Exam Skin: Present intact and warm; Absent erythema *Routine Neurological Exam Neurological: Present alert, oriented X3 and CN II-XII intact; Absent sensory deficit or motor deficit Routine Psychiatric Exam Psychiatric: Present normal affect Progress Note: A&P Assessment and plan (1) CAD in [place] artery: Status: Acute (2) Non-STEMI (non-ST elevated myocardial infarction): Status: Acute (3) Acute UTI: Status: Acute (4) CKD (chronic kidney disease): Status: Acute (5) HTN (hypertension): Status: Acute (6) HLD (hyperlipidemia): Status: Acute (7) Dementia: Status: Acute Assessment and Plan Assessment and Plan for All Diagnoses:: Plan: 1. The patient was admitted to the hospital due to an acute UTI and sepsis. He is getting antibiotics. Will defer to the hospitalist. 2. The patient had an elevated troponin consistent with a non-STEMI. He underwent left cardiac catheterization yesterday and had 1 stent placed to the LAD. The patient will be on dual antiplatelet therapy with Plavix and aspirin 3. CAD is likely stable. 4. His blood pressure is well-controlled. 5. His LDL goal is less than 55. His LDL is 96. Will start him on Lipitor 80 mg p.o. nightly due to his non-STEMI. 6. Echocardiogram shows a normal ejection fraction 7. Dual antiplatelet therapy with Plavix and aspirin 8. Start Toprol XL 25 mg daily for his non-STEMI. 9. The patient is stable for discharge back to the retirement today from a cardiac standpoint. He will need to follow-up in cardiology clinic in 1 week on an outpatient basis. The patient will need to be discharged on the following cardiac medications: Aspirin 81 mg daily Atorvastatin 80 mg p.o. nightly Plavix 75 mg daily Toprol XL 25 mg daily Thank you for the opportunity to participate in the care of this patient. Our recommendations and orders are per Dr. Gonzalez.
--- NOTE | 2025-01-10 13:34 | PC.NURSE ---
Voicemail message left at this time for patients caregiver. Continuation of care plan.
--- NOTE | 2025-01-10 13:50 | PC.NURSE ---
Report called to Erendira at [facility]. Continuation of care plan.
--- NOTE | 2025-01-10 14:05 | PC.NURSE ---
Primary RN reviewed discharge paperwork with patient at this time. Patient has GCS of 15. Continuation of care plan.
--- NOTE | 2025-01-10 14:58 | PC.NURSE ---
EMS called at this time. Continuation of care plan.
--- NOTE | 2025-01-10 15:52 | PC.NURSE ---
Patient left via EMS at this time. Patient accompanied by EMS staff.
== END 2025-01-10 15:52 | DRG 981 ==
LOC: ER 19:35 → ICU 21:21
PROVIDERS: Family Medicine; Internal Medicine; Nurse Practitioner; Admitting Provider Student in an Organized Health Care Education/Training Program; Emergency Provider Student in an Organized Health Care Education/Training Program; Visit Provider Student in an Organized Health Care Education/Training Program
PROC: 4A023N7 Measurement of Cardiac Sampling and Pressure, Left Heart, Percutaneous Approach (ICD-10-PCS; CPT 93452; principal; 2025-01-09 20:00)
DX: T83.511A Infection and inflammatory reaction due to indwelling urethral catheter, initial encounter (principal); A41.51 Sepsis due to Escherichia coli [E. coli]; R65.21 Severe sepsis with septic shock; A41.59 Other Gram-negative sepsis; N13.8 Other obstructive and reflux uropathy; N10 Acute pyelonephritis; I12.9 Hypertensive chronic kidney disease with stage 1 through stage 4 chronic kidney disease, or unspecified chronic kidney disease; N18.32 Chronic kidney disease, stage 3b; E03.9 Hypothyroidism, unspecified; F03.90 Unspecified dementia, unspecified severity, without behavioral disturbance, psychotic disturbance, mood disturbance, and anxiety; E27.8 Other specified disorders of adrenal gland; F39 Unspecified mood [affective] disorder; N30.91 Cystitis, unspecified with hematuria; I25.10 Atherosclerotic heart disease of native coronary artery without angina pectoris; N40.1 Benign prostatic hyperplasia with lower urinary tract symptoms; E78.2 Mixed hyperlipidemia; K59.00 Constipation, unspecified; R33.8 Other retention of urine; Y84.6 Urinary catheterization as the cause of abnormal reaction of the patient, or of later complication, without mention of misadventure at the time of the procedure; Y92.129 Unspecified place in nursing home as the place of occurrence of the external cause; Z79.899 Other long term (current) drug therapy
CPT/HCPCS: 36415; 51702; 71045; 74177; 80048; 80053; 80061; 81001; 82803; 83036; 83605; 83735; 84145; 84439; 84443; 84484; 85007; 85025; 85347; 86140; 87040; 87077; 87081; 87086; 87088; 87154; 87186; 87636; 93005; 93306; 99152; C1725; C1760; C1769; C1874; J0131; J0692; J0696; J1200; J1644; J1650; J2003; J2185; J2250; J3010; J3375; J7030; J7040; Q9967

== ENCOUNTER 2025-03-24 09:00 | Outpatient (CLI) | payer MEDICARE, SELFPAY ==
[2025-03-24 09:11] LABS: Hematocrit 35.1 % (42.0-52.0); Hemoglobin 11.5 g/dL (14.1-18.0); Immature Granulocytes % 0.3 %; Mean Corpuscular HGB Conc 32.8 g/dL (31.8-35.4); Mean Corpuscular Hemoglobin 29.3 pg (27.0-31.2); Mean Corpuscular Volume 89.5 fl (80-94); Nucleated Red Blood Cells % 0 %; Platelet Count 245 K/mm3 (142-424); Red Blood Count 3.92 M/mm3 (4.60-6.20); Red Cell Distribution Width-SD 48.0 fL; White Blood Count 6.6 K/mm3 (4.8-10.8)
== END 2025-03-24 23:59 | disposition home or self-care (01) ==
PROVIDERS: PCP Family Medicine; Visit Provider Family Medicine
DX: D64.9 Anemia, unspecified (principal)
CPT/HCPCS: 36415; 85025

== ENCOUNTER 2025-04-26 07:39 | Outpatient (CLI) | payer MEDICARE, SELFPAY ==
[2025-04-26 07:54] LABS: Hematocrit 36.3 % (42.0-52.0); Hemoglobin 11.6 g/dL (14.1-18.0); Immature Granulocytes % 0.4 %; Mean Corpuscular HGB Conc 32.0 g/dL (31.8-35.4); Mean Corpuscular Hemoglobin 29.2 pg (27.0-31.2); Mean Corpuscular Volume 91.4 fl (80-94); Nucleated Red Blood Cells % 0 %; Platelet Count 244 K/mm3 (142-424); Red Blood Count 3.97 M/mm3 (4.60-6.20); Red Cell Distribution Width-SD 48.3 fL; White Blood Count 7.1 K/mm3 (4.8-10.8)
[2025-04-26 08:02] LABS: Albumin Level 3.9 g/dl (3.5-5.0); Chloride 104 mmol/L (98-107); Potassium 5.2 mmoL/L (3.5-5.1); Sodium 141 mmol/L (136-145)
[2025-04-26 08:04] LABS: Alanine Aminotransferase 19 U/L (12-78); Aspartate Amino Transferase 22 U/L (17-59); Blood Urea Nitrogen 61 mg/dl (9-20); Estimated Glomerular Filt Rate 8 ml/min (>60); GFR (African American) 10 ML/MIN (>60)
[2025-04-26 08:05] LABS: Albumin/Globulin Ratio 1.2 (1.1-1.8); Alkaline Phosphatase 104 U/L (38-126); Anion Gap 20.2 mEq/L (5-15); Bilirubin,Total 0.5 mg/dl (0.2-1.3); Calcium 8.9 mg/dl (8.4-10.2); Carbon Dioxide 22 mmol/L (22.0-30.0); Globulin 3.3 g/dL (1.3-3.2); Glucose 83 mg/dl (74-100); Iron 91 ug/dL (49-181); Total Protein,Serum 7.2 g/dl (6.3-8.2)
[2025-04-26 08:16] LABS: Total Iron Binding Capacity 268 ug/dL (261-462)
[2025-04-26 08:36] LABS: Thyroid Stimulating Hormone 3.22 uIU/mL (0.465-4.68)
[2025-04-26 08:38] LABS: Creatinine,Serum 6.70 mg/dl (0.66-1.25)
[2025-04-26 08:41] LABS: Ferritin 95.6 ng/ml (17.9-464)
[2025-04-26 08:51] LABS: Free T4 (Free Thyroxine) 1.21 ng/dl (0.78-2.19)
[2025-04-26 10:49] LABS: Folate 10.50 ng/mL
[2025-04-26 12:06] LABS: Vitamin B12 327 pg/mL (239-931)
== END 2025-04-26 23:59 | disposition home or self-care (01) ==
LOC: LAB.DROPOF 07:39
PROVIDERS: PCP Family Medicine; Visit Provider Nurse Practitioner Family
DX: R14.0 Abdominal distension (gaseous) (principal); I25.2 Old myocardial infarction; N18.9 Chronic kidney disease, unspecified; E03.9 Hypothyroidism, unspecified; D64.9 Anemia, unspecified
CPT/HCPCS: 36415; 80053; 82607; 82728; 82746; 83540; 83550; 84439; 84443; 85025

== ENCOUNTER 2025-04-26 10:34 | Emergency (ER) | payer MEDICARE, SELFPAY ==
[2025-04-26] VITALS (11 sets, daily range): BP systolic 131–192; BP diastolic 66–99; PULSE 68–95; RESP 18; TEMP 36.8; O2SAT 95–99; BMI 32.1
--- NOTE | 2025-04-26 10:38 | PC.NURSE ---
Per Gerard MCGARRY pt is able to eat. dietary called to [facility] lunch tray for patient
--- NOTE | 2025-04-26 10:44 | ED_ITS ---
<Statement entered by Alexx Gauthier DO - 04/26/25 16:10> I was consulted by the SUSAN, and we discussed the complexity of problems being addressed. I approved the treatment and management plan for this patient's care in the emergency department, thus performing a substantive portion of the medical decision making. Alexx Gauthier DO I agree with SUSAN assessment and plan above. I did independently evaluate this patient as well. He tells me that he is completely asymptomatic. He has quite significant urinary retention of greater than 1100 mL. He was only able to void 30 mL on his own. He does not have an urge to urinate. This did prompt consideration for cauda equina syndrome. The patient has no saddle anesthesia, normal patellar reflexes, 5 out of 5 strength in his bilateral upper and lower extremities, and no symptoms of radiculopathy. He has no tenderness of the T or L-spine either. Therefore I do not feel that this is likely to be spinal pathology. In the setting of his diabetes is also prone consideration for something like neurogenic bladder from longstanding diabetes. Ultimately, we anchored a Manning catheter and he was able to get out 1300 mL. Later he also expelled 600 mL from his bladder. We monitor the patient on continuous telemetry for electrolyte derangement in the setting of postobstructive diuresis. The patient was ultimately transferred to [facility] for further management given that we do not have dialysis or urology available at our hospital. Discharge Plan Disposition Patient Disposition: Xfer Other Condition: Fair Prescriptions Prescriptions: No Action tamsulosin [Flomax] 0.4 mg capsule 0.4 mg PO 1700 polyethylene glycol 3350 [Miralax] 17 gram/dose powder 17 g PO BID acetaminophen 500 mg capsule 500 mg PO Q6HP PRN (Reason: Pain (Scale Score 1-3)) finasteride [Proscar] 5 mg tablet 5 mg PO DAILY senna 8.6 mg capsule 17.2 mg PO HS risperidone 0.25 mg tablet,disintegrating 0.25 mg PO BID melatonin 1 mg Tablet 1 mg PO HSP PRN (Reason: Sleep) atorvastatin 40 mg Tablet 80 mg PO HS 30 Days Qty: 60 0RF clopidogrel 75 mg Tablet 75 mg PO DAILY 30 Days Qty: 30 0RF aspirin 81 mg Tablet,Delayed Release (Dr/Ec) 81 mg PO DAILY 30 Days Qty: 30 0RF pantoprazole 40 mg Tablet,Delayed Release (Dr/Ec) 40 mg PO HS 30 Days Qty: 30 0RF Referrals Follow up/Referrals: Omar Solis MD [Primary Care Provider, Family Practice] - See instructions Clinical Impressions Clinical Impression: BPH (benign prostatic hyperplasia), Urinary retention, MILLIE (acute kidney injury) Stand Alone Forms Stand Alone Forms: Work/School Release, Transfer Record - ED Instructions Patient Instructions: DI for Urinary Tract Infection (UTI), DI for Urinary Tract Infection in Children Print Language Print Language: Israeli Discharge ED Provider: Alexx Gauthier General Adult HPI General Chief complaint: Urogenital-Male Stated complaint: Abnormal labs Time Seen by Provider: 04/26/25 10:39 Mode of Arrival: EMS Source of Information: Patient and EMS Description of Symptoms (Recalled from ER Triage Doc. by RN): Pt presents by EMS from [place] for evaluation of elevated creatinine level. Pt denies any urinary sx. History of Present Illness HPI narrative: 75-year-old male presents to the emergency department via EMS from [facility] facility for abnormal labs, more specifically an elevated creatinine at 6.7 today. Unsure patient's baseline, however patient the bedside is GCS of 15 asymptomatic denies any fever chills chest pain shortness of breath, no abdominal pain no nausea no vomiting no constipation no diarrhea no urinary symptomatology, patient still makes urine, patient denies any alcohol tobacco or drug use, other past medical history is consistent with CKD, anemia, coronary artery disease status post stent placement, mood disorder BPH, hypertension, hyperlipidemia. Initial triage vitals are unremarkable. Please note that above description of symptoms, in this electronic medical record under categorization of recalled from ER triage doctor by RN are reflective of an initial nursing assessment, however, is not reflective of my full history and physical exam that was personally taken and clarified. Consequentially, this preceding description of symptoms, which may include the patient's categorized chief complaint in the EMR, do not reflect my personal clinical impression, and the ultimate description of history of present illness and patient stated complaints should be deferred to this section of the note. Unless stated otherwise or congruent with this section of the note, additional signs, symptoms, or incongruence should be interpreted as inaccurate with my clinical impression. Onset (ago): unknown Related Data Home Medications ?Medication ?Instructions ?Recorded ?Confirmed acetaminophen 500 mg capsule 500 mg PO Q6HP PRN Pain ( Scale 07/15/25 12/02/25 Score 1-3) finasteride 5 mg tablet (Proscar) 5 mg PO DAILY 04/25/25 polyethylene glycol 3350 17 17 g PO BID 12/06/2404/25 gram/dose oral powder (Miralax) risperidone 0.25 mg disintegrating 0.25 mg PO BID 11/2204/25/25 tablet sennosides 8.6 mg capsule (senna) 17.2 mg PO HS 04/25/25 tamsulosin 0.4 mg capsule (Flomax) 0.4 mg PO 1700 11/2204/25/25 melatonin 1 mg tablet 1 mg PO HSP PRN Sleep 04/25/25 Previous Rx's ?Medication ?Instructions ?Recorded aspirin 81 mg tablet,delayed 81 mg PO DAILY 30 days #3 0 tabs 01/10/25 release atorvastatin 40 mg tablet 80 mg (2 x 40 mg) PO HS 30 d ays 01/10/25 #60 tabs clopidogrel 75 mg tablet 75 mg PO DAILY 30 days #30 t abs 01/10/25 pantoprazole 40 mg tablet,delayed 40 mg PO HS 30 days #30 tabs 01/10/25 release Allergies Allergy/AdvReac Type Severity Reaction Status Date / Time No Known Allergies Allergy Verified 04/25/25 14:06 [facility] Disclaimer: The information contained in this section may have been updated after the patient was seen, as this information can be updated by other users. 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 ECHO--December 2024 Anemia Cardiac murmur CAD in [place] artery Non-STEMI (non-ST elevated myocardial infarction) Mood disorder BPH (benign prostatic hyperplasia) Urinary obstruction Hypothyroid Dementia CKD (chronic kidney disease) HTN (hypertension) HLD (hyperlipidemia) Surgical History S/P coronary artery stent placement (~12/2024) Social History Smoking Status: Current some day smoker alcohol intake: former current occupational status: retired Travel in the last 8 weeks?: None marital status: Have you lived/traveled outside US in past 30 days?: No Contact w/someone who lives/traveled outside US past 30 days?: No Exposure to someone with infectious disease in past 14 days?: No Do you have a fever (greater than 100.4 F or 38 C)?: No Have you tested positive for COVID-19?: No Exposed to someone with COVID-19 in past 14 days?: No Do you have a sore throat?: No Do you have a cough?: No Do you have any weakness?: No Do you have any diarrhea?: No Are you experiencing any unusual bleeding?: No Do you have any muscle aches/pain?: No Do you have any abdominal pain?: No Are you experiencing loss of taste or smell?: No Other Medical History Have you received the Flu Vaccine for this season: No Have you received the Pneumonia Vaccine: No (Refused) ROS Obtained: Yes All systems reviewed & no additional complaints except as documented Physical Exam General General appearance: alert and in no apparent distress Head Head exam: atraumatic and normocephalic Eye Eye exam: Present PERRL and EOMI ENT ENT exam: Present mucous membranes moist Neck Neck exam: Present normal inspection Chest Chest inspection: Present normal inspection and symmetric chest wall rise Respiratory Respiratory exam: Present normal lung sounds bilaterally; Absent respiratory distress Cardiovascular Cardiovascular exam: Present regular rate and normal rhythm Abdominal Exam Abdominal exam: Present soft and distention; Absent tenderness, guarding or rebound Extremities Exam Extremities exam: Present normal inspection Neurological Exam Neurological exam: Present alert and oriented X3 Psychiatric Psychiatric exam: Present normal affect Skin Skin exam: Present warm and dry Medical Decision Making Medical Records Medical records reviewed: Yes I reviewed the patient's medical records. Screening: Per USPSTF and CDC recommendations, given the prevalence of disease in our region, it is our hospital?s policy to screen for HIV and viral Hepatitis for all patients aged 18 and over and those with ongoing risk factors. [place] Inquiry Pt receiving controlled substance: No [place] was queried for this patient: No Vital Signs: 04/26/25 10:22 04/26/25 11:10 04/26/25 11:31 Temperature 98.3 F Temperature Source Oral Pulse Rate 84 75 Pulse Rate [Right] 68 Respiratory Rate 18 Blood Pressure 160/84 H 155/78 H Blood Pressure [Right Arm] 131/82 Blood Pressure Mean Blood Pressure Mean [Right Arm] 98 Blood Pressure Source [Right Arm] Automatic Cuff Blood Pressure Position [Right Arm] Sitting 02 Sat by Pulse Oximetry 98 96 98 Oxygen Delivery Method Room Air 04/26/25 12:00 04/26/25 12:34 04/26/25 13:00 Temperature Temperature Source Pulse Rate 88 95 H 95 H Pulse Rate [Right] Respiratory Rate Blood Pressure 166/82 H 139/66 149/70 H Blood Pressure [Right Arm] Blood Pressure Mean 112 Blood Pressure Mean [Right Arm] Blood Pressure Source [Right Arm] Blood Pressure Position [Right Arm] 02 Sat by Pulse Oximetry 99 99 97 Oxygen Delivery Method Room Air Room Air Room Air 04/26/25 13:28 04/26/25 14:25 04/26/25 14:30 Temperature Temperature Source Pulse Rate 92 H 83 85 Pulse Rate [Right] Respiratory Rate Blood Pressure 168/99 H 192/88 H 189/95 H Blood Pressure [Right Arm] Blood Pressure Mean 122 126 Blood Pressure Mean [Right Arm] Blood Pressure Source [Right Arm] Blood Pressure Position [Right Arm] 02 Sat by Pulse Oximetry 96 Oxygen Delivery Method Room Air 04/26/25 15:00 Temperature Temperature Source Pulse Rate 92 H Pulse Rate [Right] Respiratory Rate Blood Pressure 166/93 H Blood Pressure [Right Arm] Blood Pressure Mean Blood Pressure Mean [Right Arm] Blood Pressure Source [Right Arm] Blood Pressure Position [Right Arm] 02 Sat by Pulse Oximetry 95 Oxygen Delivery Method Lab Data Lab results reviewed: Yes I reviewed the patient's lab results. Lab Results 04/26/25 10:33: WBC 6.9, RBC 3.70 L, Hgb 10.9 L, Hct 33.7 L, MCV 91.1, MCH 29.5, MCHC 32.3, RDW 14.3, Plt Count 233, MPV 8.3, Neut % (Auto) 70.9, Lymph % (Auto) 16.6, [place] % (Auto) 8.2, Eos % (Auto) 3.6, Baso % (Auto) 0.4, Neut # (Auto) 4.9, Lymph # (Auto) 1.2, [place] # (Auto) 0.6, Eos # (Auto) 0.3, Baso # (Auto) 0.0, Sodium 141, Potassium 5.3 H, Chloride 107, Carbon Dioxide 21 L, Anion Gap 18.3 H , BUN 62 H, Creatinine 6.20 H, Estimated Creat Clear 13, Estimated GFR 9 L*, Est GFR ( Amer) 11 L*, Glucose 129 H D, Calcium 8.7, Magnesium 2.5 H, Total Bilirubin 0.4, AST 31 D, ALT 17, Alkaline Phosphatase 93, NT-Pro-B Natriuret Pep 1060 H, Total Protein 6.7, Albumin 3.6, Globulin 3.1, Albumin/Globulin Ratio 1.2 04/26/25 10:55: VBG pH 7.38, VBG pCO2 34.4 L, VBG pO2 89.6 H, VBG HCO3 19.7 L, V BG Total CO2 20.7 L, VBG O2 Saturation 96.7 H, VBG Base Excess -5.5 L, VBG Lactic Acid 2.4 H 04/26/25 12:10: Urine Color Cancelled 04/26/25 12:10: Urine Color Yellow, Urine Appearance Cancelled 04/26/25 12:10: Urine Appearance Clear, Urine pH Cancelled 04/26/25 12:10: Urine pH 6.5, Ur Specific Padroni Cancelled 04/26/25 12:10: Ur Specific Padroni <= 1.005, Urine Protein Cancelled 04/26/25 12:10: Urine Protein Negative, Urine Glucose (UA) Cancelled 04/26/25 12:10: Urine Glucose (UA) Negative, Urine Ketones Cancelled 04/26/25 12:10: Urine Ketones Negative, Urine Blood Cancelled 04/26/25 12:10: Urine Blood Negative, Urine Nitrate Cancelled 04/26/25 12:10: Urine Nitrate Negative, Urine Bilirubin Cancelled 04/26/25 12:10: Urine Bilirubin Negative, Urine Urobilinogen Cancelled 04/26/25 12:10: Urine Urobilinogen 0.2, Ur Leukocyte Esterase Cancelled 04/26/25 12:10: Ur Leukocyte Esterase Negative, Urine RBC Cancelled 04/26/25 12:10: Urine RBC None, Urine WBC Cancelled 04/26/25 12:10: Urine WBC None, Ur Squamous Epith Cells Cancelled 04/26/25 12:10: Ur Squamous Epith Cells None, Ur Transition Epith Cell Cancelled, Ur Renal Epithelial Cell Cancelled, Calcium Carbonate Cryst Cancelled, Calcium Phosphate Cryst Cancelled, Calcium Oxalate Crystal Cancelled, Cystine Crystals Cancelled, Uric Acid Crystals Cancelled, Triple Phos Crystals Cancelled, Tyrosine Crystals Cancelled, Other Crystals Cancelled, Amorphous Sediment Cancelled, Other Sediment Cancelled, Urine Bacteria Cancelled 04/26/25 12:10: Urine Bacteria None, Fatty Casts Cancelled, Hyaline Casts Cancelled, Fine Granular Casts Cancelled, Coarse Granular Casts Cancelled, Waxy Casts Cancelled, RBC Casts Cancelled, WBC Casts Cancelled, Other Casts Cancelled, Urine Mucus Cancelled, Urine Trichomonas Cancelled, Urine Yeast Cancelled, Urine Sperm Cancelled 04/26/25 13:41: Sodium 133 L, Potassium 5.4 H, Chloride 107, Carbon Dioxide 20 L , Anion Gap 11.4, BUN 60 H, Creatinine 5.80 H, Estimated Creat Clear 13, E stimated GFR 10 L*, Est GFR ( Amer) 12 L*, Glucose 103 H D, Calcium 8.9 04/26/25 10:33 04/26/25 13:41 Orders (Tests/Meds): ED MEDICATIONS Discontinued Medications Generic Name Dose Route Start Last Admin Trade Name Freq PRN Reason Stop Dose Admin Lactated Ringer's 1,000 mls @ 999 mls/hr 04/26/25 11:21 04/26/25 14:12 Lactated Ringer's 1000 Ml Bag IV 04/26/25 12:21 Infused .Q1H1M ONE Infusion ORDERS Category Date Time Status CT abdomen pelvis wo con Stat Cat Scan 04/26/25 11:31 Completed BMP [Basic Metabolic Panel] Stat Lab 04/26/25 13:41 Completed Complete Blood Count Auto Diff Stat Lab 04/26/25 10:33 Completed Comprehensive Metabolic Panel Stat Lab 04/26/25 10:33 Completed Magnesium Stat Lab 04/26/25 10:33 Completed NT Pro Brain Natriuretic Pep. Stat Lab 04/26/25 10:33 Completed Urinalysis (cathed specimen) Stat Lab 04/26/25 12:10 Completed VBG [Venous Blood Gas] Stat RT 04/26/25 10:55 Completed Medical Decision Narrative: 75-year-old male presents to the emergency department for abnormal labs/elevated creatinine, differential diagnose include but not limited to MILLIE, acute on chronic renal failure, cardiac arrhythmia, electrolyte disturbance, acute UTI, acid-base disturbance among others. I discussed patient case with the attending physician Dr. Gauthier Will obtain basic laboratory studies, magnesium level proBNP, VBG, urinalysis and EKG. CBC is notable for anemia with a hemoglobin of 10.9/33.7. CMP is noted for mild hyperkalemia at 5.3, BUN elevation at 6.2, creatinine elevation at 6.2, mild hyper magnesium at 2.5, GFR is 9. I discussed this patient's case with the [facility] physician who sent the patient to the emergency department Dr. Solis at approximately 11:04 AM, he believes this is an acute kidney injury as patient's baseline creatinine is somewhere between 1.9 and 2, last recorded in December 2024, laboratory drawl today at the [facility] was 6.7, 6.2 today with a GFR of 9. GFR was previously in the 30s/baseline in the 30s. proBNP is mildly elevated at 1060. I discussed this patient's case with the attending hospitalist physician at approximately 11:20 AM, he recommends trialing fluid challenge with fluid bolus, repeating BMP in around 30 minutes to an hour after fluid bolus to assess for prerenal cause. Thus we will do 1 L LR of IV, also rule out any postobstructive/postrenal cause of the patient's MILLIE by obtaining CT abdomen pelvis without contrast and obtaining bladder scan. Patient's BUN/creatinine ratio however does suggest possible intrinsic kidney failure. Nursing staff perform bladder scan, yields 1190cc in the urinary bladder. Postvoid residual after attempting to urinate was 1110, will anchor Manning catheter and attempt transfer/discussion with urology/nephrology. I reviewed the patient's CT abdomen pelvis without contrast along the corresponding radiologic report, distended bladder appears to be causing bilateral hydroureter and hydronephrosis there is mild enlargement of the prostate as well. After initial Manning catheter was anchored per nursing staff, 1300 mL were able to be drawn off, will send off repeat BMP, repeat Manning catheter assessment had around 600 mL. I discussed this patient's case in depth with the hospitalist physician at [facility] he graciously accepts the patient for transfer for acute kidney injury most likely postrenal with urinary retention/obstruction. They will call back with bed assignment. I discussed need for transfer the patient the bedside patient is in agreement with the current treatment plan/transfer plan. Repeat BMP is notable for BUN 60 and creatinine of 5.8, mild hyponatremia 133, mild hyperkalemia 5.4. EMS presented to the emergency department to transport patient to [facility] at approximately 4:10 PM, patient for transfer. Critical Care Critical Care Time Critical Care Time: No
[2025-04-26 10:50] LABS: Hematocrit 33.7 % (42.0-52.0); Hemoglobin 10.9 g/dL (14.1-18.0); Immature Granulocytes % 0.3 %; Mean Corpuscular HGB Conc 32.3 g/dL (31.8-35.4); Mean Corpuscular Hemoglobin 29.5 pg (27.0-31.2); Mean Corpuscular Volume 91.1 fl (80-94); Nucleated Red Blood Cells % 0 %; Platelet Count 233 K/mm3 (142-424); Red Blood Count 3.70 M/mm3 (4.60-6.20); Red Cell Distribution Width-SD 48.0 fL; White Blood Count 6.9 K/mm3 (4.8-10.8)
[2025-04-26 10:52] LABS: Albumin Level 3.6 g/dl (3.5-5.0); Chloride 107 mmol/L (98-107); Potassium 5.3 mmoL/L (3.5-5.1); Sodium 141 mmol/L (136-145)
[2025-04-26 10:53] LABS: VBG HCO3 19.7 mmol/L (23-30); VBG PCO2 34.4 mmol/L (35-51); VBG PH 7.38 mmol/L (7.31-7.41); VBG PO2 89.6 mmol/L (28-40)
[2025-04-26 10:55] LABS: Alanine Aminotransferase 17 U/L (12-78); Albumin/Globulin Ratio 1.2 (1.1-1.8); Alkaline Phosphatase 93 U/L (38-126); Anion Gap 18.3 mEq/L (5-15); Aspartate Amino Transferase 31 U/L (17-59); Bilirubin,Total 0.4 mg/dl (0.2-1.3); Blood Urea Nitrogen 62 mg/dl (9-20); Calcium 8.7 mg/dl (8.4-10.2); Carbon Dioxide 21 mmol/L (22.0-30.0); Creatinine Clearance Estimated 13 mL/min (50-200); Estimated Glomerular Filt Rate 9 ml/min (>60); GFR (African American) 11 ML/MIN (>60); Globulin 3.1 g/dL (1.3-3.2); Glucose 129 mg/dl (74-100); Total Protein,Serum 6.7 g/dl (6.3-8.2)
[2025-04-26 10:55] LABS: Lactate Venous 2.4 mmol/L (0.4-2.0)
--- NOTE | 2025-04-26 10:55 | PC.NURSE ---
Pt assisted with setting up meal tray. Provided patient with urinal, and notified of need for urine sample. Pt denies any other needs at this time.
[2025-04-26 10:56] LABS: Creatinine,Serum 6.20 mg/dl (0.66-1.25); Magnesium 2.5 mg/dl (1.6-2.3)
--- NOTE | 2025-04-26 11:03 | ECG_ITS ---
APPROVED REPORT Exam: Resting ECG HR:81 bpm ECG Measurements Heart Rate 81 AXES IL 167 P 33 QRSd 92 QRS 1 QT 354 T 11 QTc 392 Conclusion Normal sinus rhythm Normal axis Normal intervals No STEMI Electronically signed by : Alexx Gauthier, 04/26/2025 16:28:28
[2025-04-26 11:04] LABS: NT Pro Brain Natriuretic Pep. 1060 pg/mL (0-450)
--- NOTE | 2025-04-26 11:22 | PC.NURSE ---
ZEFERINO Leong spoke with the hospitalist
[2025-04-26] MEDS: LACTATED RINGERS 1000ML 1,000 ML 999 ML IV (11:25)
--- NOTE | 2025-04-26 11:31 | CT_ITS ---
FINAL REPORT TECHNIQUE: Thin section axial images were obtained from the lung bases to the pubic symphysis without IV contrast. Coronal and sagittal reconstruction images were obtained from the axial data. Exam was performed using dose reduction technique. CLINICAL HISTORY: Abdominal distention, concern for urinary retentio COMPARISON: 01/06/2025 FINDINGS: There are no obstructing renal or ureteral stones. There is bilateral hydronephrosis and hydroureter to the level of the distended bladder. The bladder extends into the lower abdomen. The prostate is enlarged. The gallbladder is present. A right adrenal nodule is present with calcification, stable since the prior CT of December. The remaining unenhanced solid abdominal organs are unremarkable. There is no evidence of small bowel obstruction. The appendix is not well-seen, although no secondary signs of appendicitis are visualized. GI tract is without acute abnormality. There is no lymphadenopathy or ascites. No acute osseous abnormality is identified. IMPRESSION: Distended bladder appears to be causing bilateral hydroureter and hydronephrosis. There is mild enlargement of the prostate as well. Reviewed, Interpreted and Dictated by Chelsie Villafuerte MD Transcribed by Shanda Gurrola Authenticated and [facility]
--- NOTE | 2025-04-26 11:31 | PC.NURSE ---
Provider notified of bladder scan of 1190
[2025-04-26 12:19] LABS: Appearance,Urine/Cath Clear (Clear); Bilirubin,Cath Negative (Negative); Blood, Urine/Cath Negative (Negative); Color,Urine/Cath Yellow (Yellow); Glucose,Urine/Cath (UA) Negative (Negative); Ketones,Urine/Cath Negative (Negative); Microscopic,Cath URINE MICROSCOPIC (MICROSCOPIC); Nitrate,Cath Negative (Negative); PH,Urine/Cath 6.5 (5.0-8.5); Protein,Urine/Cath Negative (Negative); Specific Gravity, Urine/Cath <= 1.005 (1.005-1.030)
[2025-04-26 12:20] LABS: Leukocyte Esterase,Cath Negative (Negative); Urobilinogen,Cath 0.2 EU/dl (0.2)
--- NOTE | 2025-04-26 12:20 | PC.NURSE ---
1150 Pt was able to void 50cc of urine. Post void bladder scan performed. Pt had 1117 on bladder scan. Manning catheter placed per provider order.
--- NOTE | 2025-04-26 12:34 | PC.NURSE ---
additional 300cc of urine drained from ashford catheter
[2025-04-26 13:58] LABS: Anion Gap 11.4 mEq/L (5-15); Blood Urea Nitrogen 60 mg/dl (9-20); Calcium 8.9 mg/dl (8.4-10.2); Carbon Dioxide 20 mmol/L (22.0-30.0); Chloride 107 mmol/L (98-107); Creatinine Clearance Estimated 13 mL/min (50-200); Estimated Glomerular Filt Rate 10 ml/min (>60); GFR (African American) 12 ML/MIN (>60); Glucose 103 mg/dl (74-100); Potassium 5.4 mmoL/L (3.5-5.1); Sodium 133 mmol/L (136-145)
[2025-04-26 14:35] LABS: Creatinine,Serum 5.80 mg/dl (0.66-1.25)
--- NOTE | 2025-04-26 14:41 | PC.NURSE ---
report called to Flor CHARLES at [facility]
[2025-04-26 14:56] LABS: Reflex Lactic Add Lactic Reflex
--- NOTE | 2025-04-26 15:03 | PC.NURSE ---
EMS notified of the need for transport at this time.
--- NOTE | 2025-04-26 15:05 | PC.NURSE ---
Pt assisted with repositioning in bed to eat. Call light in reach. emptied 600cc from ashfodr catheter
--- NOTE | 2025-04-26 16:12 | PC.NURSE ---
report given to [facility]. Pt belongings bagged and placed on stretcher
== END 2025-04-26 16:14 | disposition other institution (70) ==
PROVIDERS: Physician Assistant; Emergency Provider Student in an Organized Health Care Education/Training Program; PCP Family Medicine
DX: N13.39 Other hydronephrosis (principal); N13.4 Hydroureter; N17.9 Acute kidney failure, unspecified; E87.5 Hyperkalemia; E83.41 Hypermagnesemia; R79.89 Other specified abnormal findings of blood chemistry; R33.8 Other retention of urine; N40.1 Benign prostatic hyperplasia with lower urinary tract symptoms; F17.210 Nicotine dependence, cigarettes, uncomplicated; I10 Essential (primary) hypertension; E78.5 Hyperlipidemia, unspecified
CPT/HCPCS: 51702; 51798; 74176; 80048; 80053; 81001; 82803; 83735; 83880; 85025; 93005; 96360; 99285; J7120

== ENCOUNTER 2025-05-01 09:02 | Outpatient (CLI) | payer MEDICARE, SELFPAY ==
[2025-05-01 09:57] LABS: Anion Gap 11.5 mEq/L (5-15); Blood Urea Nitrogen 34 mg/dl (9-20); Calcium 9.3 mg/dl (8.4-10.2); Carbon Dioxide 22 mmol/L (22.0-30.0); Chloride 108 mmol/L (98-107); Creatinine,Serum 2.50 mg/dl (0.66-1.25); Estimated Glomerular Filt Rate 25 ml/min (>60); GFR (African American) 31 ML/MIN (>60); Glucose 84 mg/dl (74-100); Potassium 4.5 mmoL/L (3.5-5.1); Sodium 137 mmol/L (136-145)
== END 2025-05-01 23:59 | disposition home or self-care (01) ==
LOC: LAB.DROPOF 09:02
PROVIDERS: PCP Family Medicine; Visit Provider Nurse Practitioner Family
DX: I12.9 Hypertensive chronic kidney disease with stage 1 through stage 4 chronic kidney disease, or unspecified chronic kidney disease (principal); N18.9 Chronic kidney disease, unspecified
CPT/HCPCS: 36415; 80048

== ENCOUNTER 2025-05-09 14:50 | Emergency (ER) | payer MEDICARE, SELFPAY ==
[2025-05-09] VITALS (9 sets, daily range): BP systolic 113–207; BP diastolic 66–93; PULSE 75–85; RESP 15–18; TEMP 36.6–36.8; O2SAT 53–100; BMI 31.6
--- NOTE | 2025-05-09 14:59 | ED_ITS ---
<Statement entered by Avery Jarquin MD - 05/09/25 18:27> Avery Jarquin MD: I was consulted by the SUSAN, and we discussed the complexity of the problems being addressed. I approve the treatment and management plan for this patient's care in the emergency department, thus performing a substantive portion of the medical decision making. Discharge Plan Disposition Patient Disposition: Home, Self-Care Prescriptions Prescriptions: No Action tamsulosin 0.4 mg capsule 0.4 mg PO DAILY 90 Days Qty: 90 1RF Rx Instructions: Take 1/2-hour after same meal each day. finasteride [Proscar] 5 mg tablet 5 mg PO DAILY Qty: 90 1RF polyethylene glycol 3350 [Miralax] 17 gram/dose powder 17 g PO BID acetaminophen 500 mg capsule 500 mg PO Q6HP PRN (Reason: Pain (Scale Score 1-3)) senna 8.6 mg capsule 17.2 mg PO HS risperidone 0.25 mg tablet,disintegrating 0.25 mg PO BID melatonin 1 mg Tablet 1 mg PO HSP PRN (Reason: Sleep) atorvastatin 40 mg Tablet 80 mg PO HS 30 Days Qty: 60 0RF clopidogrel 75 mg Tablet 75 mg PO DAILY 30 Days Qty: 30 0RF aspirin 81 mg Tablet,Delayed Release (Dr/Ec) 81 mg PO DAILY 30 Days Qty: 30 0RF pantoprazole 40 mg Tablet,Delayed Release (Dr/Ec) 40 mg PO HS 30 Days Qty: 30 0RF Referrals Follow up/Referrals: Omar Solis MD [Primary Care Provider, Family Practice] - See instructions Activity Restrictions/Add. Instructions Additional Instructions/Restrictions: Please dressing in place for 24 hours. Clinical Impressions Clinical Impression: Laceration Instructions Patient Instructions: DI for Laceration Repair Print Language Print Language: Divehi Discharge ED Provider: Chapis Del Valle General Adult HPI General Chief complaint: Wound/Laceration Stated complaint: laceration Time Seen by Provider: 05/09/25 14:51 Mode of Arrival: EMS Source of Information: Patient Description of Symptoms (Recalled from ER Triage Doc. by RN): LINDA STATES HE WAS BEING SHAVED LASTNIGHT AROUND 8PM WHEN THEY CUT HIS CHIN WITH RAZOR IS ON PLAVIX BLEEDING HAS NOT STOPPED. THEY HAVE CHANGED THE BANDAGE 12 TIMES History of Present Illness HPI narrative: 75-year-old male presents today for complaint of patient being shaved last night around 8:00 when they cut his chin with a razor. He is on aspirin and Plavix and his bleeding still has not stopped. detention is change the bandage multiple times and he still bleeds through. So he continued to bleed through today and they called his PCP who is towed behind and he told them to bring him to the ED. Related Data Home Medications ?Medication ?Instructions ?Recorded ?Confirmed acetaminophen 500 mg capsule 500 mg PO Q6HP PRN Pain ( Scale 12/06/24 05/08/25 Score 1-3) polyethylene glycol 3350 17 17 g PO BID 12/06/2405/08 gram/dose oral powder (Miralax) risperidone 0.25 mg disintegrating 0.25 mg PO BID 11/2205/08/25 tablet sennosides 8.6 mg capsule (senna) 17.2 mg PO HS 05/08/25 melatonin 1 mg tablet 1 mg PO HSP PRN Sleep 05/08/25 Previous Rx's ?Medication ?Instructions ?Recorded aspirin 81 mg tablet,delayed 81 mg PO DAILY 30 days #3 0 tabs 01/10/25 release atorvastatin 40 mg tablet 80 mg (2 x 40 mg) PO HS 30 d ays 01/10/25 #60 tabs clopidogrel 75 mg tablet 75 mg PO DAILY 30 days #30 t abs 01/10/25 pantoprazole 40 mg tablet,delayed 40 mg PO HS 30 days #30 tabs 01/10/25 release finasteride 5 mg tablet (Proscar) 5 mg PO DAILY #90 ta bs 05/08/25 tamsulosin 0.4 mg capsule 0.4 mg PO DAILY 90 days #90 caps 05/08/25 Allergies Allergy/AdvReac Type Severity Reaction Status Date / Time No Known Allergies Allergy Verified 05/08/25 13:14 [facility] Disclaimer: The information contained in this section may have been updated after the patient was seen, as this information can be updated by other users. 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 Non-STEMI (non-ST elevated myocardial infarction) Mood disorder BPH (benign prostatic hyperplasia) Urinary obstruction Hypothyroid Dementia CKD (chronic kidney disease) HTN (hypertension) HLD (hyperlipidemia) Surgical History S/P coronary artery stent placement (~12/2024) Social History Smoking Status: Current every day smoker alcohol intake: former current occupational status: retired Travel in the last 8 weeks?: None marital status: Have you lived/traveled outside [place] in past 30 days?: No Contact w/someone who lives/traveled outside US past 30 days?: No Exposure to someone with infectious disease in past 14 days?: No Do you have a fever (greater than 100.4 F or 38 C)?: No Have you tested positive for COVID-19?: No Exposed to someone with COVID-19 in past 14 days?: No Do you have a sore throat?: No Do you have a cough?: No Do you have any weakness?: No Do you have any diarrhea?: No Are you experiencing any unusual bleeding?: No Do you have any muscle aches/pain?: No Do you have any abdominal pain?: No Are you experiencing loss of taste or smell?: No Other Medical History Have you received the Flu Vaccine for this season: No Have you received the Pneumonia Vaccine: No (Refused) ROS Obtained: Yes Systems reviewed as appropriate & no additional complaints except as documented Constitutional Constitutional: Reports as per HPI Physical Exam General General appearance: alert and in no apparent distress Head Head exam: atraumatic and normocephalic Eye Eye exam: Present PERRL and EOMI ENT ENT exam: Present normal oropharynx and mucous membranes moist Neck Neck exam: Present full ROM and trachea midline Respiratory Respiratory exam: Present normal lung sounds bilaterally Cardiovascular Cardiovascular exam: Present regular rate, normal rhythm, normal heart sounds, +S1 and +S2 Extremities Exam Extremities exam: Present full ROM and normal capillary refill Neurological Exam Neurological exam: Present alert and oriented X3 Skin Skin exam: Present warm, dry and other (Small tiny cut on chin that is still bleeding.) Medical Decision Making Medical Records Screening: Per USPSTF and CDC recommendations, given the prevalence of disease in our region, it is our hospital?s policy to screen for HIV and viral Hepatitis for all patients aged 18 and over and those with ongoing risk factors. [place] Inquiry Pt receiving controlled substance: No [place] was queried for this patient: No Vital Signs: 05/09/25 14:45 05/09/25 14:49 05/09/25 15:03 Temperature 97.9 F Temperature Source Oral Pulse Rate 79 Pulse Rate [Right Radial] 80 Respiratory Rate 15 Blood Pressure 136/89 Blood Pressure [Right Arm] 120/73 Blood Pressure Mean Blood Pressure Mean [Right Arm] 88 Blood Pressure Source [Right Arm] Automatic Cuff Blood Pressure Position [Right Arm] Supine 02 Sat by Pulse Oximetry 87 L 96 94 L Oxygen Delivery Method Room Air 05/09/25 15:31 05/09/25 16:01 Temperature Temperature Source Pulse Rate 77 75 Pulse Rate [Right Radial] Respiratory Rate Blood Pressure 185/77 H 207/91 H Blood Pressure [Right Arm] Blood Pressure Mean 113 Blood Pressure Mean [Right Arm] Blood Pressure Source [Right Arm] Blood Pressure Position [Right Arm] 02 Sat by Pulse Oximetry 100 96 Oxygen Delivery Method Orders (Tests/Meds): ED MEDICATIONS Discontinued Medications Generic Name Dose Route Start Last Admin Trade Name Freq PRN Reason Stop Dose Admin Tranexamic Acid 10 mg/ Sodium 250.1 mls @ 500.2 mls/hr 05/09/25 14:43 Chloride IV 05/09/25 14:44 ONCE ONE ORDERS Category Date Time Status HIV Combo Stat Lab 05/09/25 15:17 Ordered Hepatitis C Ab Qual. W/ RFX Stat Lab 05/09/25 15:17 Ordered Medical Decision Narrative: patient is a 75-year-old male presenting to the emergency department for evaluation of bleeding of his chin that has not stopped since 8 PM yesterday. Patient is hemodynamically stable and nontoxic-appearing upon arrival, afebrile. Differential diagnosis includes nonstop bleeding on Plavix and aspirin. I initially tried using TXA soaked gauze and pressure. This slowed the bleeding but did not stop it. I then tried Surgicel and Dermabond. I am still waiting to see if this has worked. Patient's bleeding has stopped with the Dermabond and Surgicel. Will send patient back to group home. Patient safe for discharge home. Blood pressure is now 143/96. Critical Care Critical Care Time Critical Care Time: No
--- NOTE | 2025-05-09 15:35 | PC.NURSE ---
CALLED DIETARY FOR TRAY
--- NOTE | 2025-05-09 15:47 | PC.NURSE ---
Addendum entered by Eboni Trinidad RN 05/09/25 15:48: SHERMAN APPLIED 5ML OF TRANEXAMIC ACID TRANSDERMAL @ 1513 PM TO CONTROL BLEEDING ON CHIN Original Note: SHERMAN APPLIED 5ML OF TRANEXAMIC ACID @ 1513PM TO HELP CONTROL BLEEDING ON CHIN
--- NOTE | 2025-05-09 16:49 | PC.NURSE ---
GAVE PATIENT CHICKEN SALAD AND PEPSI CALL LIGHT IN REACH
--- NOTE | 2025-05-09 17:00 | PC.NURSE ---
REPORT GIVEN TO CUSTODIAL
== END 2025-05-09 20:27 | disposition home or self-care (01) ==
PROVIDERS: Emergency Provider Student in an Organized Health Care Education/Training Program; PCP Family Medicine
DX: S01.81XA Laceration without foreign body of other part of head, initial encounter (principal); W26.8XXA Contact with other sharp object(s), not elsewhere classified, initial encounter; Z79.01 Long term (current) use of anticoagulants
CPT/HCPCS: 12001; 99283

== ENCOUNTER 2025-05-10 08:47 | Outpatient (CLI) | payer MEDICARE, SELFPAY ==
[2025-05-10 09:47] LABS: Blood Urea Nitrogen 35 mg/dl (9-20); Creatinine,Serum 2.40 mg/dl (0.66-1.25); Estimated Glomerular Filt Rate 26 ml/min (>60); GFR (African American) 32 ML/MIN (>60)
== END 2025-05-10 23:59 | disposition home or self-care (01) ==
LOC: LAB.DROPOF 08:48
PROVIDERS: PCP Family Medicine; Visit Provider Nurse Practitioner Family
DX: R79.9 Abnormal finding of blood chemistry, unspecified (principal); R94.4 Abnormal results of kidney function studies
CPT/HCPCS: 36415; 82565; 84520

== ENCOUNTER 2025-05-12 09:01 | Day surgery (SDC) | payer MEDICARE, SELFPAY ==
[2025-05-10 15:47] VITALS: BMI 30.7
[2025-05-12 09:37] VITALS: BP 158/88; PULSE 87; RESP 18; TEMP 36.1; O2SAT 97
--- NOTE | 2025-05-12 10:05 | [facility].PROCNOTE ---
[facility] Procedure Note Date: 05/12/25 Time: 10:05 Procedure Note:: Chart review: Patient has a follow-up CT scan bilateral hydronephrosis with urinary retention on 05/18. A Ashford catheter was inserted. His serum creatinine earlier in April this year was 5.8 and a repeat at 6.2. After the Ashford catheter for couple of days the patient's serum creatinine returned 2.5. His most recent serum creatinine 8 now is 2.1 on 03/18. His current potassium is normal. The patient prior to this diagnosis was not having much in the way of urologic complaints. He comes in with an indwelling Ashford. Pre-Op diagnosis: Urinary retention Postop diagnosis: Urinary retention/small blister rt leg from ashford tape Operative note: The patient was brought to the cystoscopy suite. His Ashford catheter was removed. He was prepped and draped using a clean technique. The anterior urethra through flexible cystoscopy was unremarkable. From the level of the verumontanum the patient has grade 2-3 prostate obstruction from a posterior urethra that is 3.5 cm in length. His urinary bladder is trabeculated. The ureteral openings are normal bilaterally. At the dome of the bladder he has some hemorrhagic irritation from his recent Ashford catheter. He finds cystoscopy uncomfortable and this may interfere with his personal ability to do self intermittent catheterization. I am going to replace the Ashford catheter and leave it draining to see how much improvement we can get on his hydronephrosis over the holidays. Will consider intermittent catheterization when he returns to the office. He could consider prostate surgery. Complex urodynamics might be beneficial to try to discern if the patient also has a neurogenic component to his retention issue.
[2025-05-12] MEDS: 0.9 % SODIUM CHLORIDE 500 ML 25 ML IV (10:16)
[2025-05-12] MEDS: LIDOCAINE 2% UROJET 10ML 10 ML (10:16)
[2025-05-12 10:23] VITALS: BP 110/61; PULSE 85; RESP 20; TEMP 36.2; O2SAT 96
== END 2025-05-12 10:23 | disposition home or self-care (01) ==
PROVIDERS: PCP Family Medicine; Visit Provider Urology
PROC: 0TJB8ZZ Inspection of Bladder, Via Natural or Artificial Opening Endoscopic (ICD-10-PCS; CPT 52000; principal; 2025-05-12 10:15)
DX: N13.30 Unspecified hydronephrosis (principal); N40.0 Benign prostatic hyperplasia without lower urinary tract symptoms; I25.10 Atherosclerotic heart disease of native coronary artery without angina pectoris; E78.5 Hyperlipidemia, unspecified; I12.9 Hypertensive chronic kidney disease with stage 1 through stage 4 chronic kidney disease, or unspecified chronic kidney disease; N18.9 Chronic kidney disease, unspecified; Z79.82 Long term (current) use of aspirin; Z79.02 Long term (current) use of antithrombotics/antiplatelets; F17.200 Nicotine dependence, unspecified, uncomplicated
CPT/HCPCS: 52000; 51702; J7040

== ENCOUNTER 2025-05-16 13:31 | Outpatient (CLI) | payer MEDICARE, SELFPAY ==
--- NOTE | 2025-05-16 13:30 | US_ITS ---
FINAL REPORT CLINICAL HISTORY: kidney failure FINDINGS: RENAL ULTRASOUND Ultrasound images of the kidneys were obtained. Limited images of the liver parenchyma demonstrates normal echogenicity. The right kidney measures 9.3 cm in length. The left kidney measures 9.0 cm in length. The kidneys are borderline small in size. However, there is moderate global parenchymal atrophy bilaterally. The renal parenchyma is abnormally hyperechoic compatible with medical renal disease. There is no hydronephrosis. There is a 13 mm mid right renal simple cyst. No left renal lesion visualized. IMPRESSION: Moderate atrophy with abnormal appearance of the parenchyma compatible with medical renal disease. Reviewed, Interpreted and Dictated by Milan Siddiqi MD Transcribed by Yadira Hernandez Authenticated and [facility]
== END 2025-05-16 23:59 | disposition home or self-care (01) ==
LOC: RAD 13:32
PROVIDERS: PCP Family Medicine; Visit Provider Urology
DX: N19 Unspecified kidney failure (principal); N28.1 Cyst of kidney, acquired
CPT/HCPCS: 76770